=== PATIENT | female | born 1965 | race Caucasian/White ===

== ENCOUNTER 2017-12-07 12:05 | Emergency (ER) | payer SELFPAY ==
[2017-12-07 12:05] VITALS: BP 124/83; PULSE 91; RESP 15; TEMP 37; O2SAT 96; BMI 29.1
--- NOTE | 2017-12-07 12:37 | ED.DCSUM_ITS ---
- ER Visit Summary Date of Service: 12/07/17 Chief Complaint: Swelling to right eyelid. History of Present Illness: The patient is a 52 F 3 of chronic sinus problems and drainage. States since Sunday she has had swelling and discomfort to her right upper eyelid primarily. Did not see any obvious stye. Has had some mild drainage. Denies any trauma. Does not wear contacts. Has never had eye surgery. Does wear reading glasses. She has had symptoms like this before. She denies any obvious allergic reaction like a contact dermatitis or any obvious bee sting or insect bite. She denies any visual change. Physical Examination: Well-appearing middle-age female. Vital signs are stable afebrile. She does not look septic or toxic or in any distress. HEENT exam her right upper eyelid is significantly swollen red mildly tender. On the lateral third there appears you to be an insect sting. There is no stinger. There is no trauma. There is no ecchymosis. There is no stye. Pupils round reactive light. Right eye is injected. Right lower lids minimally swollen. There is no bacterial infection. Pupils round reactive light motions are intact. No foreign bodies or signs of trauma. Neck nontender no lymphadenopathy. Lungs clear to auscultation bilaterally. Heart regular rhythm no murmur. Abdomen is soft and nontender. Moving all 4 extremities. Skin no rashes. Test Results: None Emergency Department Course and Treatment: Right upper eyelid swelling secondary to local allergic reaction. Treatment Plan: Cool compresses, ice, Benadryl for allergic reaction right upper eyelid. Motrin for pain and swelling. She will be placed on amoxicillin 3 times daily for 10 days for possible sinusitis. Disposition: dc Impression: Acute right upper eyelid swelling secondary to local allergic reaction Acute sinusitis This note was generated with [employer] dictation software. It may contain incorrect words, spelling, and punctuation that were not noted in review of the chart prior to signing ED Disposition - Plan for ED Patient: Chief Complaint: Eye Problem Referrals: Ivory Melvin [Primary Care Provider] -
--- NOTE | 2017-12-07 12:37 | ED.DEP ---
ED Disposition - Plan for ED Patient: Disposition: Home or Assisted Living Chief Complaint: Eye Problem Instructions: ED Allergic Reaction Local Other, ED Sinusitis Abx Tx Prescriptions: Amoxicillin 500 mg PO TID #30 tab Referrals: Rupinder Cui,Ivory Ruiz [Primary Care Provider] - Additional Instructions: Cool compresses and ice to her right upper lid to decrease swelling and pain. Motrin to decrease swelling and pain. Also Benadryl for allergic reaction. Amoxicillin for possible sinus infection 3 times a day till gone. Return if getting worse instead of better.
[2017-12-07 12:47] VITALS: BP 118/70; PULSE 86; RESP 14; O2SAT 99
== END 2017-12-07 12:50 | disposition home or self-care (01) ==
PROVIDERS: Emergency Provider Emergency Medicine
DX: J01.90 Acute sinusitis, unspecified (principal); T78.40XA Allergy, unspecified, initial encounter; I10 Essential (primary) hypertension; E11.9 Type 2 diabetes mellitus without complications; I25.10 Atherosclerotic heart disease of native coronary artery without angina pectoris; Z86.73 Personal history of transient ischemic attack (TIA), and cerebral infarction without residual deficits; Z72.0 Tobacco use
CPT/HCPCS: 99283

== ENCOUNTER 2018-05-22 17:16 | Emergency (ER) | payer SELFPAY ==
[2018-05-22 17:17] VITALS: BP 144/91; PULSE 88; RESP 19; TEMP 36.9; O2SAT 98; BMI 26.4
--- NOTE | 2018-05-22 17:22 | RAD_ITS ---
STUDY: X-RAY - LEFT KNEE REASON FOR EXAM: Female, 52 years old. Injured knee yesterday. Anterior pain. Knee buckle posteriorly again today now with pain from the back of the knee into the bladder. TECHNIQUE: 4 view(s) of the knee. COMPARISON: None. FINDINGS: Normal visualized distal femur. Normal visualized proximal tibia and fibula. Normal proximal tibiofibular articulation. There is no acute fracture, dislocation or destructive osseous pathology. There is moderate degenerative arthrosis of the medial femorotibial compartment with moderate joint space narrowing. There is mild degenerative arthrosis of the lateral femorotibial compartment. There is moderate degenerative arthrosis of the patellofemoral articulation. There is no demonstrated joint effusion. The soft tissue structures are unremarkable. RAD/Knee 4 or More Views IMPRESSION: Degenerative arthrosis. Electronically Signed: Dinh Beltran DO at 17:59 EST Tel [phone], Service support ,
--- NOTE | 2018-05-22 18:46 | ED.VISSUMM ---
- ER Visit Summary Date of Service: 05/22/18 Chief Complaint: Left knee injury History of Present Illness: The patient is a 52 F who presents for evaluation of left knee injury. 5 days ago, patient had a small dog jump on the anterior knee, causing sensation of hyperextension of the leg. Patient has had intermittent pain since then, mainly in the medial knee, and has been able to walk. This morning she felt her leg give out underneath her, causing increased severe pain. She has been able to weight-bear but with great pain. She denies any noted actual dissociation of the bones at the knee. She has worsening pain with trying to fully extend the leg. Denies any other complaints. Patient also states she is out of her levothyroxine and asks for refill. Physical Examination: Well-nourished well-developed in no distress. Examination of the lower extremities shows symmetric appearance of the knee. Patient has symmetric leg temperature and color, sensation, motor function, no edema of the left lower extremity. Tenderness to palpation of the medial knee joint. No fullness in the popliteal fossa. Patient is able to lift the leg off the bed but is not completely in full extension. Intact patellar tendon and quadriceps tendon, no patellar deformity. Patient able to flex past 90 degrees. No joint effusions appreciated. Negative anterior and posterior drawer sign. Negative varus and valgus stress laxity. Test Results: Clinical Impression(s) from Imaging Studies Knee X-Ray 05/22/18 17:22 IMPRESSION: Degenerative arthrosis. Electronically Signed: Dinh Beltran DO at 17:59 EST Tel [phone], Service support , Emergency Department Course and Treatment: Patient presents for 2 injuries to the left knee within 5 days. Her history and exam is not consistent with a knee dislocation, and her physical exam is most consistent with a knee sprain, possibly the MCL or cruciate ligaments. She has no findings concerning for neurovascular compromise. X-ray showed no fracture or effusion. Patient was placed in a knee immobilizer and given crutches. Referral to orthopedics. Patient's use [id number] pain medication as needed. Patient given refill of her levothyroxine. Discharged home. Treatment Plan: [] Disposition: [] Impression: Left knee sprain, medication refill This note was generated with Dragon dictation software. It may contain incorrect words, spelling, and punctuation that were not noted in review of the chart prior to signing ED Disposition - Plan for ED Patient: Disposition: Home or Assisted Living Chief Complaint: Lower Extremity Injury Instructions: ED Sprain Knee Prescriptions: RX: Levothyroxine [Synthroid] 100 mcg PO DAILY 30 Days #30 tab Referrals: Momo Bullard DO [STAFF PHYSICIAN] - 1 Week Evelia Davis NP-C [Primary Care Provider] - Keep Conrad appointment Additional Instructions: Wear the knee immobilizer for support and comfort. You may take it off at night. Take it off several times a day and gently bend and extend your knee to keep the joint moving. Weight-bear as tolerated. Use crutches for support. Use [id number] pain medication as needed for pain. Ice the knee several times a day and keep it elevated as much as possible. If you have any worsening of your condition or any new concerning symptoms, please return immediately to the emergency department for another evaluation.
--- NOTE | 2018-05-22 18:49 | ED.DCSUM_ITS ---
- ER Visit Summary Date of Service: 05/22/18 Chief Complaint: Left knee injury History of Present Illness: The patient is a 52 F who presents for evaluation of left knee injury. 5 days ago, patient had a small dog jump on the anterior knee, causing sensation of hyperextension of the leg. Patient has had i ntermittent pain since then, mainly in the medial knee, and has been able to walk. This morning she felt her leg give out underneath her, causing increased severe pain. She has been able to weight-bear but with great pain. She denies any noted actual dissociation of the bones at the knee. She has worsening pain with trying to fully extend the leg. Denies any other complaints. Patient also states she is out of her levothyroxine and asks for refill. Physical Examination: Well-nourished well-developed in no distress. Examination of the lower extremities shows symmetric appearance of the knee. Patient has symmetric leg temperature and color, sensation, motor function, no edema of the left lower extremity. Tenderness to palpation of the medial knee joint. No fullness in the popliteal fossa. Patient is able to lift the leg off the bed but is not completely in full extension. Intact patellar tendon and quadriceps tendon, no patellar deformity. Patient able to flex past 90 degrees. No joint effusions appreciated. Negative anterior and posterior drawer sign. Negative varus and valgus stress laxity. Test Results: Clinical Impression(s) from Imaging Studies Knee X-Ray 05/22/18 17:22 IMPRESSION: Degenerative arthrosis. Electronically Signed: Dinh Beltran DO at 17:59 EST Tel [phone], Service support , Emergency Department Course and Treatment: Patient presents for 2 injuries to the left knee within 5 days. Her history and exam is not consistent with a knee dislocation, and her physical exam is most consistent with a knee sprain, possibly the MCL or cruciate ligaments. She has no findings concerning for neurovascular compromise. X-ray showed no fracture or effusion. Patient was placed in a knee immobilizer and given crutches. Referral to orthopedics. Patient's use iykz-zbd-resilxt pain medication as needed. Patient given refill of her levothyroxine. Discharged home. Treatment Plan: [] Disposition: [] Impression: Left knee sprain, medication refill This note was generated with [employer] dictation software. It may contain incorrect words, spelling, and punctuation that were not noted in review of the chart prior to signing ED Disposition - Plan for ED Patient: Disposition: Home or Assisted Living Chief Complaint: Lower Extremity Injury Instructions: ED Sprain Knee Prescriptions: RX: Levothyroxine [Synthroid] 100 mcg PO DAILY 30 Days #30 tab Referrals: Momo Bullard DO [STAFF PHYSICIAN] - 1 Week Evelia Davis NP-C [Primary Care Provider] - Keep Conrad appointment Additional Instructions: Wear the knee immobilizer for support and comfort. You may take it off at night. Take it off several times a day and gently bend and extend your knee to keep the joint moving. Weight-bear as tolerated. Use crutches for support. Use [id number] pain medication as needed for pain. Ice the knee several times a day and keep it elevated as much as possible. If you have any worsening of your condition or any new concerning symptoms, please return immediately to the emergency department for another evaluation.
--- NOTE | 2018-05-22 19:33 | ED.DEP ---
ED Disposition - Plan for ED Patient: Disposition: Home or Assisted Living Chief Complaint: Lower Extremity Injury Instructions: ED Sprain Knee Prescriptions: Levothyroxine [Synthroid] 100 mcg PO DAILY 30 Days #30 tab Referrals: Evelia Davis NP-C [Primary Care Provider] - Keep Conrad appointment Momo Bullard DO [STAFF PHYSICIAN] - 1 Week Additional Instructions: Wear the knee immobilizer for support and comfort. You may take it off at night. Take it off several times a day and gently bend and extend your knee to keep the joint moving. Weight-bear as tolerated. Use crutches for support. Use hvps-vxy-ionrusy pain medication as needed for pain. Ice the knee several times a day and keep it elevated as much as possible. If you have any worsening of your condition or any new concerning symptoms, please return immediately to the emergency department for another evaluation.
[2018-05-22 19:48] VITALS: PULSE 80; RESP 16
== END 2018-05-22 19:49 | disposition home or self-care (01) ==
PROVIDERS: Emergency Provider Emergency Medicine; PCP Nurse Practitioner Family
DX: S83.92XA Sprain of unspecified site of left knee, initial encounter (principal); Z76.0 Encounter for issue of repeat prescription; I25.10 Atherosclerotic heart disease of native coronary artery without angina pectoris; W54.8XXA Other contact with dog, initial encounter; Y93.9 Activity, unspecified; Y92.89 Other specified places as the place of occurrence of the external cause; Y99.9 Unspecified external cause status
CPT/HCPCS: 73564; 99284

== ENCOUNTER 2018-08-18 11:01 | Observation (INO) | payer SELFPAY ==
[2018-08-18] VITALS (13 sets, daily range): BP systolic 110–145; BP diastolic 66–90; PULSE 60–75; RESP 14–20; TEMP 36.4–36.6; O2SAT 94–98; BMI 28.4; BMI 27.4; BMI 27.5
--- NOTE | 2018-08-18 11:09 | EKG12_ITS ---
Test Reason : CP Blood Pressure : / mmHG Vent. Rate : 071 BPM Atrial Rate : 071 BPM P-R Int : 194 ms QRS Dur : 086 ms QT Int : 414 ms P-R-T Axes : 029 074 047 degrees QTc Int : 449 ms Normal sinus rhythm Low voltage QRS Borderline ECG Confirmed by JERRELL DELONG, DANIEL ([id number]), senior technical editor BROWN KIRKLAND ([id number]) on 08/21/2018 1:53:57 PM Referred By: PERICO Confirmed By:DANIEL ALLAN MD
--- NOTE | 2018-08-18 11:10 | ED.VIS.GEN ---
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 nonpleuritic. Relieved by: aspirin Associated Symptoms: sudden weakness. lightheaded/near-syncopal. Narrative: Did not feel diaphoretic or dyspneic. She just felt very generally bad. These are similar symptoms to when she had 2 stents put in her heart around 2.5 years ago. At that time she had discomfort down the right arm instead of the left. She has been compliant with her aspirin and Plavix. She took a baby aspirin this morning and then when this occurred, she took another one. Discomfort seemed to let off after that, but never has gone away. She has taken no other medications. She continues to smoke. She states she is trying to quit and currently smokes half pack per day. - Past Medical History (1) CAD (coronary artery disease), [place] coronary artery Status: Chronic (2) Diabetes Status: Chronic (3) Hypertension Status: Chronic Past Medical History - Allergies and Home Meds Allergies/Adverse Reactions: Allergies codeine Allergy (Verified 08/18/18 11:06) Hives hydromorphone HCl [From Dilaudid] Allergy (Verified 08/18/18 11:06) Chest tightness lisinopril Allergy (Verified 08/18/18 11:06) Other pine trees Allergy (Uncoded 08/18/18 11:06) Unknown Primary Care Physician: Evelia Davis NP-C [NON-STAFF] - Surgical History: - - coronary stent x 2 Lives: Alone Smoking Status: Heavy Smoker (>10/day) Alcohol: None Drugs: None - Family History Sibling Family History: Reports: Heart Disease Review of Systems General: Reports: Malaise. Denies: Chills, Fever, Sweats Eyes: Denies: Visual changes - bilaterally, Diplopia ENT: Denies: Rhinorrhea, Sore throat Cardiovascular: Reports: Chest pain. Denies: Palpitations, Heart racing Respiratory: Denies: Dyspnea, Cough, Dyspnea on exertion Gastrointestinal: Denies: Abdominal pain, Nausea, Vomiting, Diarrhea, Melena, Hematochezia Genitourinary: Denies: Dysuria, Hematuria, Frequency Musculoskeletal: Reports: Extremity Pain - LUE. Denies: Back pain, Swelling Skin: Denies: Rash, Wounds Neurological: Denies: Headache, Weakness, Numbness Hematologic: Reports: Easy bruising, Easy bleeding Physical Exam Vital Signs/Narrative: Vital Signs Temp Pulse Resp BP Pulse Ox 08/18/18 11:02 97.6 F L 73 16 145/90 H 98 Inital Vital Signs reviewed: Yes General: Well nourished, Well developed, No Acute Distress Head: Normocephalic, Atraumatic Eyes: Perrl, EOMI ENT: Moist mucous membranes, No rhinorrhea Neck: Supple, Nontender, No JVD Cardiovascular: Regular rate, Regular rhythm, No murmurs, Normal S1, Normal S2. Negative for: Tachycardia Respiratory: No distress, CTA bilaterally, Chest nontender Abdomen: Soft, Nontender, Nondistended, Normal bowel sounds Back: Nontender, Normal Inspection Extremities: Nontender, No edema. Negative for: Calf Tenderness Skin: Normal color, No rash Neurological: Alert, Oriented x3, Cranial nerves II-XII grossly intact, Normal Strength, Normal Sensation Psychological: Normal affect, Normal Mood Diagnostic/Tx/Re-eval Impressions Chest X-Ray 08/18/18 12:06 IMPRESSION: Mild COPD with mild fibrosis. No acute chest disease. Electronically Signed: Rafat Pope MD at 12:48 EDT , Service support , 08/18/18 12:06 Chest PA and Lateral [RAD] Stat Laboratory Results 08/18/18 08/18/18 08/18/18 11:10 11:10 11:10 WBC 13.2 H RBC 4.89 Hgb 14.9 Hct 43.8 MCV 89.6 MCH 30.5 MCHC 34.0 RDW 13.4 RDW Differential 43.5 Plt Count 176 MPV 11.5 Immature Gran % (Auto) 0.200 Neut % (Auto) 46.7 L Lymph % (Auto) 48.7 H [place] % (Auto) 3.6 Eos % (Auto) 0.5 Baso % (Auto) 0.3 Absolute Neuts (auto) 6.2 Absolute Lymphs (auto) 6.42 H Total Counted Not Reportable Differential Comment SCANNED APTT 29.9 Sodium 137 Potassium 3.7 Chloride 103 Carbon Dioxide 29.0 Anion Gap 5 BUN 6 L Creatinine 0.74 Estim Creat Clear Calc 98.27 Est GFR (MDRD) Af Amer 105 Est GFR (MDRD) Non-Af 87 BUN/Creatinine Ratio 8.1 L Glucose 256 H Calcium 8.8 Troponin I < 0.015 - Rhythm Strip Rhythm Strip: Sinus Rhythm Rate: 70 Ectopy: None - EKG Initial EKG Interpretation: Sinus Rhythm, No Acute Injury Pattern - Medical Decision Making After 1 nitroglycerin her discomfort is almost completely gone. Paste was placed on her chest, and her pressure dropped with the one nitroglycerin even though she did not become hypotensive, she was given IV fluids. On reevaluation she is feeling much better. She has minimal discomfort that is residual. Her enzymes were negative her EKG shows nothing acute, I discussed with cardiology given her prior history of 2 stents and in high risk areas, given her prior heart cath here in the areas that were previously stented, namely her LAD critical lesion in her left circumflex critical lesion, he is comfortable with seeing her today and keeping her here for now. Discussed with hospitalist for telemetry observation admission. ED Disposition - Plan for ED Patient: Disposition: Acute Care Hospital [facility] Diagnosis: Unstable angina Referrals: Evelia Davis NP-C [NON-STAFF] -
--- NOTE | 2018-08-18 11:24 | ED.DCSUM_ITS ---
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 nonpleuritic. Relieved by: aspirin Associated Symptoms: sudden weakness. lightheaded/near-syncopal. Narrative: Did not feel diaphoretic or dyspneic. She just felt very generally bad. These are similar symptoms to when she had 2 stents put in her heart around 2.5 years ago. At that time she had discomfort down the right arm instead of the left. She has been compliant with her aspirin and Plavix. She took a baby aspirin this morning and then when this occurred, she took another one. Discomfort seemed to let off after that, but never has gone away. She has taken no other medications. She continues to smoke. She states she is trying to quit and currently smokes half pack per day. - Past Medical History (1) CAD (coronary artery disease), [place] coronary artery Status: Chronic (2) Diabetes Status: Chronic (3) Hypertension Status: Chronic Past Medical History - Allergies and Home Meds Allergies/Adverse Reactions: Allergies codeine Allergy (Verified 08/18/18 11:06) Hives hydromorphone HCl [From Dilaudid] Allergy (Verified 08/18/18 11:06) Chest tightness lisinopril Allergy (Verified 08/18/18 11:06) Other pine trees Allergy (Uncoded 08/18/18 11:06) Unknown Primary Care Physician: Evelia Davis NP-C [NON-STAFF] - Surgical History: - - coronary stent x 2 Lives: Alone Smoking Status: Heavy Smoker (>10/day) Alcohol: None Drugs: None - Family History Sibling Family History: Reports: Heart Disease Review of Systems General: Reports: Malaise. Denies: Chills, Fever, Sweats Eyes: Denies: Visual changes - bilaterally, Diplopia ENT: Denies: Rhinorrhea, Sore throat Cardiovascular: Reports: Chest pain. Denies: Palpitations, Heart racing Respiratory: Denies: Dyspnea, Cough, Dyspnea on exertion Gastrointestinal: Denies: Abdominal pain, Nausea, Vomiting, Diarrhea, Melena, Hematochezia Genitourinary: Denies: Dysuria, Hematuria, Frequency Musculoskeletal: Reports: Extremity Pain - LUE. Denies: Back pain, Swelling Skin: Denies: Rash, Wounds Neurological: Denies: Headache, Weakness, Numbness Hematologic: Reports: Easy bruising, Easy bleeding Physical Exam Vital Signs/Narrative: Vital Signs Temp Pulse Resp BP Pulse Ox 08/18/18 11:02 97.6 F L 73 16 145/90 H 98 Inital Vital Signs reviewed: Yes General: Well nourished, Well developed, No Acute Distress Head: Normocephalic, Atraumatic Eyes: Perrl, EOMI ENT: Moist mucous membranes, No rhinorrhea Neck: Supple, Nontender, No JVD Cardiovascular: Regular rate, Regular rhythm, No murmurs, Normal S1, Normal S2. Negative for: Tachycardia Respiratory: No distress, CTA bilaterally, Chest nontender Abdomen: Soft, Nontender, Nondistended, Normal bowel sounds Back: Nontender, Normal Inspection Extremities: Nontender, No edema. Negative for: Calf Tenderness Skin: Normal color, No rash Neurological: Alert, Oriented x3, Cranial nerves II-XII grossly intact, Normal Strength, Normal Sensation Psychological: Normal affect, Normal Mood Diagnostic/Tx/Re-eval Impressions Chest X-Ray 08/18/18 12:06 IMPRESSION: Mild COPD with mild fibrosis. No acute chest disease. Electronically Signed: Rafat Pope MD at 12:48 EDT , Service support , 08/18/18 12:06 Chest PA and Lateral [RAD] Stat Laboratory Results 08/18/18 08/18/18 08/18/18 11:10 11:10 11:10 WBC 13.2 H RBC 4.89 Hgb 14.9 Hct 43.8 MCV 89.6 MCH 30.5 MCHC 34.0 RDW 13.4 RDW Differential 43.5 Plt Count 176 MPV 11.5 Immature Gran % (Auto) 0.200 Neut % (Auto) 46.7 L Lymph % (Auto) 48.7 H [place] % (Auto) 3.6 Eos % (Auto) 0.5 Baso % (Auto) 0.3 Absolute Neuts (auto) 6.2 Absolute Lymphs (auto) 6.42 H Total Counted Not Reportable Differential Comment SCANNED APTT 29.9 Sodium 137 Potassium 3.7 Chloride 103 Carbon Dioxide 29.0 Anion Gap 5 BUN 6 L Creatinine 0.74 Estim Creat Clear Calc 98.27 Est GFR (MDRD) Af Amer 105 Est GFR (MDRD) Non-Af 87 BUN/Creatinine Ratio 8.1 L Glucose 256 H Calcium 8.8 Troponin I < 0.015 - Rhythm Strip Rhythm Strip: Sinus Rhythm Rate: 70 Ectopy: None - EKG Initial EKG Interpretation: Sinus Rhythm, No Acute Injury Pattern - Medical Decision Making After 1 nitroglycerin her discomfort is almost completely gone. Paste was placed on her chest, and her pressure dropped with the one nitroglycerin even though she did not become hypotensive, she was given IV fluids. On reevaluation she is feeling much better. She has minimal discomfort that is residual. Her enzymes were negative her EKG shows nothing acute, I discussed with cardiology given her prior history of 2 stents and in high risk areas, given her prior heart cath here in the areas that were previously stented, namely her LAD critical lesion in her left circumflex critical lesion, he is comfortable with seeing her today and keeping her here for now. Discussed with hospitalist for telemetry observation admission. ED Disposition - Plan for ED Patient: Disposition: Acute Care [facility] Diagnosis: Unstable angina Referrals: Evelia Davis NP-C [NON-STAFF] -
[2018-08-18 11:35] LABS: Partial Thromboplast Time 29.9 Seconds (24.1-36.2)
[2018-08-18 11:38] LABS: Absolute Lymphocyte Count 6.42 X10^3/ul (0.83-4.51); Absolute Neutrophil Count 6.2 X10^3/uL (2.0-7.7); Basophil# 0.04 X10^3/uL; Basophil% 0.3 % (0-1); Eosinophil# 0.07 X10^3/uL; Eosinophils% 0.5 % (0-5); Hematocrit 43.8 % (37-47); Hemoglobin 14.9 g/dl (12.0-15.0); Lymphocyte # 6.42 X10^3/ul (4.0); Lymphocyte % 48.7 % (19-41); Mean Corpuscular Hgb 30.5 pg (27.0-32.0); Mean Corpuscular Volume 89.6 fL (81-99); Mean Platelet Vol. 11.5 fl (6.2-12.0); Monocyte# 0.47 X10^3/uL; Monocyte% 3.6 % (0-10); Neutrophil # 6.16 X10^3/uL (2.7-7.7); Neutrophil % 46.7 % (47-70); Platelet Count 176 K/mm3 (150-450); RBC Distribution Width CV 13.4 % (11.6-14.6); RBC Distribution Width SD 43.5 fl (35.1-43.9); Red Blood Count 4.89 M/mm3 (4.2-5.4); White Blood Count 13.2 K/mm3 (4.4-11.0)
[2018-08-18 11:45] LABS: Anion Gap 5 (5-15); BUN 6 mg/dL (7-18); BUN/Creat Ratio 8.1 RATIO (10-20); Calcium,Total 8.8 mg/dL (8.5-10.1); Chloride 103 mmol/L (98-107); Creatinine, Serum 0.74 mg/dL (0.55-1.02); EST Glomerular Filtration Rate 87 mL/min (>60); Est Glom Filt Rate - Afr Amer 105 mL/min (>60); Estimated Creatinine Clearance 98.27 ml/min; Glucose 256 mg/dL (74-106); Potassium 3.7 mmol/L (3.5-5.1); Sodium Level 137 mmol/L (136-145)
[2018-08-18] MEDS: Nitroglycerin Oint 1 INCH PACKET 0.5 INCH TRANSDERM. (11:45)
[2018-08-18 11:47] LABS: Differential Indicated SCAN CRITERIA MET; POSITIVE COUNT NO; POSITIVE DIFFERENTIAL YES; POSITIVE MORPHOLOGY NO
[2018-08-18 11:50] LABS: Differential Comment SCANNED
--- NOTE | 2018-08-18 12:06 | RAD_ITS ---
STUDY: X-RAY CHEST REASON FOR EXAM: Female, 53 years old. Chest pain. Heart disease. TECHNIQUE: Frontal and lateral views of the chest. COMPARISON: 01/02/2016. FINDINGS: The lungs are hyperexpanded. There are coarsened interstitial markings suggestive of mild chronic fibrosis. No gross focal infiltrates. No gross effusions. Normal size heart. Normal mediastinum and regis. Normal visualized pulmonary arteries. Normal visualized aortic arch and descending thoracic aorta. Normal visualized thoracic spine. Normal visualized ribs, clavicles, and shoulders. There is no demonstrated abnormality of the visualized soft tissue structures of the upper abdomen. RAD/Chest PA and Lateral IMPRESSION: Mild COPD with mild fibrosis. No acute chest disease. Electronically Signed: Rafat Pope MD at 12:48 EDT , Service support ,
[2018-08-18] MEDS: Enoxaparin 100 MG/ML Syringe 90 MG SC (14:19)
--- NOTE | 2018-08-18 14:40 | PCM.CONS.C ---
Reason for Consult Date of Consultation: 08/18/18 Reason for Consultation: Chest pain History of Present Illness: The patient is a 53 year old F with a previous medical history significant for hypertension, diabetes mellitus, hyperlipidemia and coronary artery disease status post cardiac catheterization in 2016 resulting in angioplasty to the left anterior descending artery and the left circumflex artery at [facility]. She also has a strong family history who presented to the Emergency Room with chest discomfort. She says that this was a heaviness in her chest radiating to both arms. It occurred while she was doing some light housework. She says that it was reminiscent of the chest discomfort she had in 2016. She presented to the emergency room was evaluated given sublingual nitroglycerin with immediate relief of the discomfort. Her EKG did not demonstrate any significant changes and cardiac troponin enzymes are thus far normal. She has unfortunately continued to use tobacco products but she has been compliant with her medications and has apparently been following up at [place] for reasons that are not entirely clear. She has had no dizziness or diaphoresis no near syncope or syncope. Past Medical History Allergies/Adverse Reactions: Allergies codeine Allergy (Verified 08/18/18 11:06) Hives hydromorphone HCl [From Dilaudid] Allergy (Verified 08/18/18 11:06) Chest tightness lisinopril Allergy (Verified 08/18/18 11:06) Other pine trees Allergy (Uncoded 08/18/18 11:06) Unknown Home Medications: Ambulatory Orders Medication Instructions Recorded Hydrochlorothiazide 25 mg PO DAILY 02/28/13 Metformin(XR) [Glucophage Xr] 1,000 mg PO DAILY 02/28/13 Levothyroxine [Synthroid] 400 mcg PO QODAY 01/02/16 Metformin(XR) [Glucophage Xr] 500 mg PO QHS 01/02/16 Metoprolol Tartrate [Lopressor 25 mg PO BID 01/05/16 (beta james)] Aspirin [Aspirin EC] 81 mg PO DAILY 05/22/18 Clopidogrel Bisulfate [Plavix] 75 mg PO DAILY 05/22/18 Atorvastatin Calcium 80 mg PO QHS 08/18/18 Past Medical History (Chronic Problems): Chronic Problems CAD (coronary artery disease), [place] coronary artery (Chronic) Smoking (Chronic) Obesity (Chronic) Hypertension (Chronic) Diabetes (Chronic) Surgical History: - - coronary stent x 2 - *Family History Sibling History Items: Heart Disease Lives: Alone Smoking Status: Heavy Smoker (>10/day) Alcohol: None Drugs: None Review of Systems - Review of Systems General: Denies: Fever, Night Sweats, Fatigue HEENT: Denies: Vision Change Cardiovascular: Reports: Chest Discomfort, Chest Discomfort with Exertion. Denies: Shortness of Breath, Orthopnea, PND, Peripheral Edema, Palpitations, Lightheadedness, Dizziness, Near Syncope, Syncope Respiratory: Denies: Cough, Sputum Production, Hemoptysis Gastrointestinal: Denies: Hematemesis, Hematochezia, Melena Genitourinary: Denies: Dysuria, Hematuria Muscoloskeletal: Denies: Myalgias Skin: Denies: Rash Neurological: Denies: Dizziness Psychiatric: Denies: Anxiety Endocrine: Denies: Unexplained Weight Loss Hematologic/ Lymphatic: Denies: Anemia Subjectve: Pleasant lady in no distress at this time Objective: Vital Signs Temp Pulse Resp BP Pulse Ox 97.6 F L 66 14 126/87 H 96 08/18/18 11:02 08/18/18 14:00 08/18/18 14:00 08/18/18 14:00 08/18/18 14:00 Oxygen Flow Rate (L/min) 2 Oxygen Delivery Method Room Air Weight: 203 lb 14.841 oz Body Mass Index (BMI) 28.4 General: Awake, Alert, Oriented x 3 HEENT: PERRL, EOMI, Sclera Non Icteric Neck: Supple, Good ROM, No Lymph Node Enlargement Lungs: Clear to auscultation Cardiovascular: Regular Rhythm, Normal S1, Normal S2, No Murmurs, No Rubs, No Gallops Vascular: No Carotid Bruits, Normal Femoral Pulses, Normal Radial Pulses, Normal Dorsalis Pedal Pulse, Normal Posterior Tibial Pulses Abdomen: Bowel Sounds Present, Soft, Non Tender, No HSM, No Organomegaly Extremities: No Cyanosis, No Clubbing, No edema Musculoskeletal: No Erythema Skin: No Rashes Lymphatic: No Lymph Node Enlargement Neurological: No Focal Motor or Sensory Deficit Psych/Mental Status: Appropriate 08/18/18 11:10: WBC 13.2 H, RBC 4.89, Hgb 14.9, Hct 43.8, MCV 89.6, MCH 30.5, MCHC 34.0, RDW 13.4, RDW Differential 43.5, Plt Count 176, MPV 11.5, Immature Gran % (Auto) 0.200, Neut % (Auto) 46.7 L, Lymph % (Auto) 48.7 H, [place] % (Auto) 3.6, Eos % (Auto) 0.5, Baso % (Auto) 0.3, Absolute Neuts (auto) 6.2, Total Counted Not Reportable 08/18/18 11:10: Sodium 137, Potassium 3.7, Chloride 103, Carbon Dioxide 29.0, Anion Gap 5, BUN 6 L, Creatinine 0.74, Est GFR (MDRD) Af Amer 105, Est GFR (MDRD) Non-Af 87, BUN/Creatinine Ratio 8.1 L, Glucose 256 H, Calcium 8.8, Troponin I < 0.015 08/18/18 11:10: APTT 29.9 Rhythm: EKG: Normal sinus rhythm with no acute changes Assessment/Plan 1. Chest discomfort-new onset angina Patient has known history of coronary artery disease and presents with new onset chest discomfort. She did undergo 2 vessel angioplasty 2 years ago. She has unfortunately continues to use tobacco products. With her chest discomfort reminiscent of the previous I would recommend that we forego stress testing and perform a cardiac catheterization. The risk benefits and alternatives have been explained to her she understands and agrees to proceed. Depending on the findings further recommendations will be made. 2. Hypertension Blood pressure appears to be under good control on the current medical therapy this will be continued. 3. Hyper lipidemia with xanthelasma Continue aggressive risk factor modification with statins and reduction of tobacco use. Thank you for allowing me to participate in the care of your patient. Please don't hesitate to call if any issues arise
--- NOTE | 2018-08-18 14:45 | CON.PCM_ITS ---
Reason for Consult Date of Consultation: 08/18/18 Reason for Consultation: Chest pain History of Present Illness: The patient is a 53 year old F with a previous medical history significant for hypertension, diabetes mellitus, hyperlipidemia and coronary artery disease status post cardiac catheterization in 2016 resulting in angioplasty to the left anterior descending artery and the left circumflex artery at [facility]. She also has a strong family history who presented to the Emergency Room with chest discomfort. She says that this was a heaviness in her chest radiating to both arms. It occurred while she was doing some light housework. She says that it was reminiscent of the chest discomfort she had in 2016. She presented to the emergency room was evaluated given sublingual nitroglycerin with immediate relief of the discomfort. Her EKG did not dem onstrate any significant changes and cardiac troponin enzymes are thus far normal. She has unfortunately continued to use tobacco products but she has been compliant with her medications and has apparently been following up at [place] for reasons that are not entirely clear. She has had no dizziness or diaphoresis no near syncope or syncope. Past Medical History Allergies/Adverse Reactions: Allergies codeine Allergy (Verified 08/18/18 11:06) Hives hydromorphone HCl [From Dilaudid] Allergy (Verified 08/18/18 11:06) Chest tightness lisinopril Allergy (Verified 08/18/18 11:06) Other pine trees Allergy (Uncoded 08/18/18 11:06) Unknown Home Medications: Ambulatory Orders Medication Instructions Recorded Hydrochlorothiazide 25 mg PO DAILY 02/28/13 Metformin(XR) [Glucophage Xr] 1,000 mg PO DAILY 02/28/13 Levothyroxine [Synthroid] 400 mcg PO QODAY 01/02/16 Metformin(XR) [Glucophage Xr] 500 mg PO QHS 01/02/16 Metoprolol Tartrate [Lopressor 25 mg PO BID 01/05/16 (beta james)] Aspirin [Aspirin EC] 81 mg PO DAILY 05/22/18 Clopidogrel Bisulfate [Plavix] 75 mg PO DAILY 05/22/18 Atorvastatin Calcium 80 mg PO QHS 08/18/18 Past Medical History (Chronic Problems): Chronic Problems CAD (coronary artery disease), [place] coronary artery (Chronic) Smoking (Chronic) Obesity (Chronic) Hypertension (Chronic) Diabetes (Chronic) Surgical History: - - coronary stent x 2 - *Family History Sibling History Items: Heart Disease Lives: Alone Smoking Status: Heavy Smoker (>10/day) Alcohol: None Drugs: None Review of Systems - Review of Systems General: Denies: Fever, Night Sweats, Fatigue HEENT: Denies: Vision Change Cardiovascular: Reports: Chest Discomfort, Chest Discomfort with Exertion. Denies: Shortness of Breath, Orthopnea, PND, Peripheral Edema, Palpitations, Lightheadedness, Dizziness, Near Syncope, Syncope Respiratory: Denies: Cough, Sputum Production, Hemoptysis Gastrointestinal: Denies: Hematemesis, Hematochezia, Melena Genitourinary: Denies: Dysuria, Hematuria Muscoloskeletal: Denies: Myalgias Skin: Denies: Rash Neurological: Denies: Dizziness Psychiatric: Denies: Anxiety Endocrine: Denies: Unexplained Weight Loss Hematologic/ Lymphatic: Denies: Anemia Subjectve: Pleasant lady in no distress at this time Objective: Vital Signs Temp Pulse Resp BP Pulse Ox 97.6 F L 66 14 126/87 H 96 08/18/18 11:02 08/18/18 14:00 08/18/18 14:00 08/18/18 14:00 08/18/18 14:00 Oxygen Flow Rate (L/min) 2 Oxygen Delivery Method Room Air Weight: 203 lb 14.841 oz Body Mass Index (BMI) 28.4 General: Awake, Alert, Oriented x 3 HEENT: PERRL, EOMI, Sclera Non Icteric Neck: Supple, Good ROM, No Lymph Node Enlargement Lungs: Clear to auscultation Cardiovascular: Regular Rhythm, Normal S1, Normal S2, No Murmurs, No Rubs, No Gallops Vascular: No Carotid Bruits, Normal Femoral Pulses, Normal Radial Pulses, Normal Dorsalis Pedal Pulse, Normal Posterior Tibial Pulses Abdomen: Bowel Sounds Present, Soft, Non Tender, No HSM, No Organomegaly Extremities: No Cyanosis, No Clubbing, No edema Musculoskeletal: No Erythema Skin: No Rashes Lymphatic: No Lymph Node Enlargement Neurological: No Focal Motor or Sensory Deficit Psych/Mental Status: Appropriate 08/18/18 11:10: WBC 13.2 H, RBC 4.89, Hgb 14.9, Hct 43.8, MCV 89.6, MCH 30.5, MCHC 34.0, RDW 13.4, RDW Differential 43.5, Plt Count 176, MPV 11.5, Immature Gran % (Auto) 0.200, Neut % (Auto) 46.7 L, Lymph % (Auto) 48.7 H, [place] % (Auto) 3.6, Eos % (Auto) 0.5, Baso % (Auto) 0.3, Absolute Neuts (auto) 6.2, Total Cou nted Not Reportable 08/18/18 11:10: Sodium 137, Potassium 3.7, Chloride 103, Carbon Dioxide 29.0, Anion Gap 5, BUN 6 L, Creatinine 0.74, Est GFR (MDRD) Af Amer 105, Est GFR (MDRD) Non-Af 87, BUN/Creatinine Ratio 8.1 L, Glucose 256 H, Calcium 8.8, Troponin I < 0.015 08/18/18 11:10: APTT 29.9 Rhythm: EKG: Normal sinus rhythm with no acute changes Assessment/Plan 1. Chest discomfort-new onset angina * Patient has known history of coronary artery disease and presents with new onset chest discomfort. She did undergo 2 vessel angioplasty 2 years ago. She has unfortunately continues to use tobacco products. With her chest discomfort reminiscent of the previous I would recommend that we forego stress testing and perform a cardiac catheterization. The risk benefits and alternatives have been explained to her she understands and agrees to proceed. Depending on the findings further recommendations will be made. 2. Hypertension * Blood pressure appears to be under good control on the current medical therapy this will be continued. * 3. Hyper lipidemia with xanthelasma * Continue aggressive risk factor modification with statins and reduction of tobacco use. * * Thank you for allowing me to participate in the care of your patient. Please don't hesitate to call if any issues arise
--- NOTE | 2018-08-18 15:05 | HP.PCM_ITS ---
Problem List (1) Hypothyroidism Status: Chronic (2) CAD (coronary artery disease), [place] coronary artery Status: Chronic (3) Unstable angina Status: Acute (4) Smoking Status: Chronic (5) Obesity Status: Chronic (6) Hypertension Status: Chronic (7) Diabetes Status: Chronic Qualifiers: Diabetes mellitus type: type 2 Diabetes mellitus complication status: with unspecified complications History of Present Illness Date of Admission: 08/18/18 Chief Complaint: Chest pain The patient is a 53 year old F with PMH as below who presents with onset of substernal pressure and a left arm sensation of insects crawling up and down her arm. 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 She states that this does not feel similar to her previous episode of needing a stent in 2016, though she states at that time she did not have any chest pain just the sensation of something craw ling up and down her arm. She denies any syncope, lightheadedness, or blurry vision. In the ER her EKG was unremarkable, and her initial troponin was negative. Unfortunately she does have a significant coronary artery disease history with 2 stents that were done in [place]. In the ER nitroglycerin was provided which did relieve her pain, and she states that she does not have pain at rest, but any sort of exertion brings on the chest pressure. Past Medical History Past Medical History (Chronic Problems): Chronic Problems CAD (coronary artery disease), [place] coronary artery (Chronic) Hypothyroidism (Chronic) Smoking (Chronic) Obesity (Chronic) Hypertension (Chronic) Diabetes (Chronic) Allergies codeine Allergy (Verified 08/18/18 11:06) Hives hydromorphone HCl [From Dilaudid] Allergy (Verified 08/18/18 11:06) Chest tightness lisinopril Allergy (Verified 08/18/18 11:06) Other pine trees Allergy (Uncoded 08/18/18 11:06) Unknown Home Medications: Ambulatory Orders Medication Instructions Recorded Hydrochlorothiazide 25 mg PO DAILY 02/28/13 Metformin(XR) [Glucophage Xr] 1,000 mg PO DAILY 02/28/13 Levothyroxine [Synthroid] 400 mcg PO QODAY 01/02/16 Metformin(XR) [Glucophage Xr] 500 mg PO QHS 01/02/16 Metoprolol Tartrate [Lopressor 25 mg PO BID 01/05/16 (beta james)] Aspirin [Aspirin EC] 81 mg PO DAILY 05/22/18 Clopidogrel Bisulfate [Plavix] 75 mg PO DAILY 05/22/18 Atorvastatin Calcium 80 mg PO QHS 08/18/18 Surgical History: - - coronary stent x 2 Lives: Alone Smoking Status: Heavy Smoker (>10/day) Tobacco Use: Cigarettes Alcohol: None Drugs: None - *Family History Sibling History Items: Heart Disease Paternal History Items: Heart Disease Review of Systems Constitutional: Denies: Chills, Fever, Weight Change HEENT: Denies: Head Aches, Sinus Congestion, Sinus Drainage Cardiovascular: Reports: Chest Pressure, Heaviness. Denies: Chest Pain, Palpitations Respiratory: Denies: Cough, Shortness of breath at rest, Sputum production Gastrointestinal: Denies: Abdominal Pain, Nausea, Vomiting Genitourinary: Denies: Dysuria Musculoskeletal: Denies: Joint Pain, Joint Tenderness Skin: Denies: Rash, Wounds Neurological: Denies: Numbness, Tingling, Focal weakness Psychiatric: Denies: Anxiety, Depression Hematologic/ Lymphatic: Denies: Easy Bruising, Easy Bleeding VTE Information - Inpt Only VTE Present on Admission: No Patient Problems: Active and Suspected Problems Unstable angina (Acute) - Physical Exam General: Alert, Oriented x3, Cooperative, No apparent distress HEENT: Atraumatic, PERRLA, EOMI, Normocephalic Oral: Moist Mucosa Neck: Supple, No JVD, Trachea Midline Lungs: Clear to auscultation, Normal air movement, No rhonchi, No wheeze, No rales Cardiovascular: Regular rate, Regular Rhythm, Normal S1, Normal S2, No murmurs Abdomen: Soft, Non Tender, Non-Distended, No Hepato-splenomegaly Extremities: No edema, Capillary Refill Less than 3 Seconds Skin: No rashes, No breakdown Neurological: Neuro grossly intact, Sensory exam intact to light touch and pain Psych/Mental Status: Normal Affect, Appropriate Vital Signs Temp Pulse Resp BP Pulse Ox 97.6 F L 66 14 126/87 H 96 08/18/18 11:02 08/18/18 14:00 08/18/18 14:00 08/18/18 14:00 08/18/18 14:00 Oxygen Flow Rate (L/min) 2 Oxygen Delivery Method Room Air Weight: 203 lb 14.841 oz Body Mass Index (BMI) 28.4 Laboratory Tests Past 24 Hrs 08/18/18 08/18/18 08/18/18 11:10 11:10 11:10 WBC 13.2 H RBC 4.89 Hgb 14.9 Hct 43.8 MCV 89.6 MCH 30.5 MCHC 34.0 RDW 13.4 RDW Differential 43.5 Plt Count 176 MPV 11.5 Immature Gran % (Auto) 0.200 Neut % (Auto) 46.7 L Lymph % (Auto) 48.7 H [place] % (Auto) 3.6 Eos % (Auto) 0.5 Baso % (Auto) 0.3 Absolute Neuts (auto) 6.2 Absolute Lymphs (auto) 6.42 H Total Counted Not Reportable Differential Comment SCANNED APTT 29.9 Sodium 137 Potassium 3.7 Chloride 103 Carbon Dioxide 29.0 Anion Gap 5 BUN 6 L Creatinine 0.74 Estim Creat Clear Calc 98.27 Est GFR (MDRD) Af Amer 105 Est GFR (MDRD) Non-Af 87 BUN/Creatinine Ratio 8.1 L Glucose 256 H Calcium 8.8 Troponin I < 0.015 Assessment/Plan All Active Problems Unstable angina (Acute) Chest pain (Acute) Pneumonia (Acute) 1. CAD status post stent x2 now with unstable angina/HTN/HLD/morbid obesity/tobacco abuse -We will give a dose of therapeutic Lovenox today in anticipation for cardiac cath in the morning -Consult to cardiology -Trend troponins -After glycerin available for symptomatic pain relief -She is already on aspirin and Plavix and took both this morning therefore it will not need to load with Plavix -We will continue with her metoprolol, HCTZ and Lipitor -Had an extensive discussion about tobacco cessation 2. DM 2 -Blood glucose is 256, and there is no A1c in our chart -We will hold metformin and start on sliding scale insulin 3. Hypothyroidism -This is secondary to thyroid ablation for hyperthyroidism -Continue with her home Synthroid dose DVT: SCDs, she received therapeutic Lovenox this afternoon Code Visit OBSV E&M: [id number] Initial observation care L3
[2018-08-18 16:50] LABS: Bedside Glucose 195 mg/dL (70-110)
[2018-08-18] MEDS: Insulin Lispro 100 UNIT/ML INSULN.PEN SQ ×2 (18:01→21:24)
[2018-08-18 21:21] LABS: Bacteria 0 SEEN /hpf (None Seen); Mucous, Urine 0 SEEN /hpf (<or=2+); Red Blood Cells-Urine 0 SEEN /hpf (0-5); White Blood Cells 0 SEEN /hpf (0-5)
[2018-08-18] MEDS: 0.9% NaCl Peripheral Flush Adult/Peds IV (21:24)
[2018-08-18] MEDS: Metoprolol Tartrate 25 MG Tablet PO (21:24)
[2018-08-18 21:30] LABS: Color, Urine Yellow (Yellow); Glucose, Dipstick Normal (Normal); Ketone-Dipstick Negative (Negative); Leukocyte Esterase-Dipstick Negative /ul (Negative); Nitrite-Dipstick Negative (Negative); Occult Blood-Urine Negative /ul (Negative); Protein-Dipstick Negative (Negative); Urine Bilirubin Dipstick Negative (Negative); Urine Clarity Clear (Clear); Urine Urobilinogen 1 mg/dl (Normal)
[2018-08-18 21:37] LABS: Squamous Epithelial Cells - UA 0-5 SEEN /hpf (5-10)
[2018-08-18 22:41] LABS: Bedside Glucose 219 mg/dL (70-110)
[2018-08-18 23:52] LABS: Internal QC Validated? YES +Cl - CLEAR BKGD; Pregnancy, Urine Negative Negative
[2018-08-19] VITALS (14 sets, daily range): BP systolic 112–125; BP diastolic 60–79; PULSE 56–69; RESP 16–18; TEMP 36.5–36.6; O2SAT 94
--- NOTE | 2018-08-19 05:00 | EKG12_ITS ---
Test Reason : AM EKG Blood Pressure : / mmHG Vent. Rate : 060 BPM Atrial Rate : 060 BPM P-R Int : 204 ms QRS Dur : 086 ms QT Int : 440 ms P-R-T Axes : 016 069 062 degrees QTc Int : 440 ms Normal sinus rhythm Normal ECG When compared with ECG of 18-AUG-2018 11:14, MANUAL COMPARISON REQUIRED, DATA IS UNCONFIRMED Confirmed by BISI DELONG, KAMI ([id number]), photograph editor BROWN KIRKLAND ([id number]) on 08/20/2018 1:07:33 PM Referred By: DR LICEA Confirmed By:KAMI MATHEWS MD
[2018-08-19 06:01] LABS: Absolute Lymphocyte Count 6.38 X10^3/ul (0.83-4.51); Absolute Neutrophil Count 4.1 X10^3/uL (2.0-7.7); Basophil# 0.04 X10^3/uL; Basophil% 0.4 % (0-1); Eosinophil# 0.12 X10^3/uL; Eosinophils% 1.1 % (0-5); Hematocrit 41.1 % (37-47); Hemoglobin 13.7 g/dl (12.0-15.0); Lymphocyte # 6.38 X10^3/ul (4.0); Lymphocyte % 57.1 % (19-41); Mean Corp Hgb Conc 33.3 g/gl (32-36); Mean Corpuscular Hgb 30.2 pg (27.0-32.0); Mean Corpuscular Volume 90.7 fL (81-99); Mean Platelet Vol. 11.6 fl (6.2-12.0); Monocyte# 0.49 X10^3/uL; Monocyte% 4.4 % (0-10); Neutrophil # 4.12 X10^3/uL (2.7-7.7); Neutrophil % 36.7 % (47-70); Platelet Count 141 K/mm3 (150-450); RBC Distribution Width CV 13.3 % (11.6-14.6); RBC Distribution Width SD 43.8 fl (35.1-43.9); Red Blood Count 4.53 M/mm3 (4.2-5.4); White Blood Count 11.2 K/mm3 (4.4-11.0)
[2018-08-19 06:03] LABS: Prothrombin Time (Protime)PT. 13.1 SECONDS (11.7-14.9)
[2018-08-19 06:04] LABS: Partial Thromboplast Time 30.9 Seconds (24.1-36.2)
[2018-08-19 06:19] LABS: POSITIVE COUNT NO; POSITIVE MORPHOLOGY NO
[2018-08-19 06:21] LABS: Differential Indicated SCAN CRITERIA MET; POSITIVE DIFFERENTIAL YES
[2018-08-19 06:27] LABS: Anion Gap 7 (5-15); BUN 9 mg/dL (7-18); BUN/Creat Ratio 12.9 RATIO (10-20); Calcium,Total 8.7 mg/dL (8.5-10.1); Chloride 106 mmol/L (98-107); EST Glomerular Filtration Rate 94 mL/min (>60); Est Glom Filt Rate - Afr Amer 113 mL/min (>60); Estimated Creatinine Clearance 103.88 ml/min; Glucose 204 mg/dL (74-106); Potassium 3.6 mmol/L (3.5-5.1); Sodium Level 140 mmol/L (136-145); Thyroid Stim Hormone (TSH) 1.26 uIU/mL (0.358-3.74)
[2018-08-19] MEDS: Clopidogrel Bisulfate 75 MG Tablet PO (06:34)
[2018-08-19] MEDS: Metoprolol Tartrate 25 MG Tablet PO (06:34)
[2018-08-19] MEDS: 0.9% Normal Saline 1,000 ML 15 ML IV (06:35)
[2018-08-19] MEDS: Levothyroxine 100 MCG Tablet 400 MCG PO (06:35)
[2018-08-19] MEDS: Aspirin E.C. 81 MG Tablet PO (06:35)
[2018-08-19] MEDS: 0.9% NaCl Peripheral Flush Adult/Peds IV (06:36)
[2018-08-19 06:51] LABS: Bedside Glucose 201 mg/dL (70-110)
[2018-08-19 06:57] LABS: Differential Comment SCANNED
[2018-08-19 06:58] LABS: Reactive Lymphocyte 2+
[2018-08-19 07:50] LABS: Hemoglobin A1c 8.6 % (4.2-6.3)
--- NOTE | 2018-08-19 09:02 | PCM.PN.CARD ---
Subjectve: Patient seen and evaluated. Appears to be stable. Objective: Vital Signs Temp Pulse Resp BP Pulse Ox 97.8 F 69 18 112/60 94 08/19/18 06:27 08/19/18 07:18 08/19/18 06:27 08/19/18 06:27 08/19/18 06:27 Oxygen Flow Rate (L/min) 2 Oxygen Delivery Method Room Air Weight: 196 lb 13.965 oz Body Mass Index (BMI) 27.4 Intake and Output for Last 24 Hours 08/17/18 08/18/18 08/19/18 23:59 23:59 23:59 Intake Total 220 / 220 200 / 200 Balance 220 / 220 200 / 200 General: Awake, Alert, Oriented x 3 HEENT: PERRL, EOMI, Sclera Non Icteric Neck: Supple, Good ROM, No Lymph Node Enlargement Lungs: Clear to auscultation Cardiovascular: Regular Rhythm, Normal S1, Normal S2, No Murmurs, No Rubs, No Gallops Vascular: No Carotid Bruits, Normal Femoral Pulses, Normal Radial Pulses, Normal Dorsalis Pedal Pulse, Normal Posterior Tibial Pulses Abdomen: Bowel Sounds Present, Soft, Non Tender, No HSM, No Organomegaly Extremities: No Cyanosis, No Clubbing, No edema Musculoskeletal: No Erythema Skin: No Rashes Lymphatic: No Lymph Node Enlargement Neurological: No Focal Motor or Sensory Deficit Psych/Mental Status: Appropriate 08/18/18 11:10: WBC 13.2 H, RBC 4.89, Hgb 14.9, Hct 43.8, MCV 89.6, MCH 30.5, MCHC 34.0, RDW 13.4, RDW Differential 43.5, Plt Count 176, MPV 11.5, Immature Gran % (Auto) 0.200, Neut % (Auto) 46.7 L, Lymph % (Auto) 48.7 H, [place] % (Auto) 3.6, Eos % (Auto) 0.5, Baso % (Auto) 0.3, Absolute Neuts (auto) 6.2, Total Counted Not Reportable 08/18/18 11:10: Sodium 137, Potassium 3.7, Chloride 103, Carbon Dioxide 29.0, Anion Gap 5, BUN 6 L, Creatinine 0.74, Est GFR (MDRD) Af Amer 105, Est GFR (MDRD) Non-Af 87, BUN/Creatinine Ratio 8.1 L, Glucose 256 H, Calcium 8.8, Troponin I < 0.015 08/18/18 11:10: APTT 29.9 08/18/18 13:10: Troponin I < 0.015 08/18/18 16:55: Troponin I < 0.015 08/18/18 20:14: Urine Color Yellow, Urine Clarity Clear, Urine pH 7.0, Ur Specific [place] 1.010, Urine Protein Negative, Urine Glucose (UA) Normal, Urine Ketones Negative, Urine Occult Blood Negative, Urine Nitrite Negative, Urine Bilirubin Negative, Urine Urobilinogen 1 H, Ur Leukocyte Esterase Negative, Urine RBC 0 SEEN, Urine WBC 0 SEEN 08/19/18 05:05: WBC 11.2 H, RBC 4.53, Hgb 13.7, Hct 41.1, MCV 90.7, MCH 30.2, MCHC 33.3, RDW 13.3, RDW Differential 43.8, Plt Count 141 L, MPV 11.6, Immature Gran % (Auto) 0.300, Neut % (Auto) 36.7 L, Lymph % (Auto) 57.1 H, [place] % (Auto) 4.4, Eos % (Auto) 1.1, Baso % (Auto) 0.4, Absolute Neuts (auto) 4.1, Total Counted Not Reportable 08/19/18 05:05: Sodium 140, Potassium 3.6, Chloride 106, Carbon Dioxide 27.0, Anion Gap 7, BUN 9, Creatinine 0.70, Est GFR (MDRD) Af Amer 113, Est GFR (MDRD) Non-Af 94, BUN/Creatinine Ratio 12.9, Glucose 204 H, Calcium 8.7 08/19/18 05:05: PT 13.1, INR 1.0, APTT 30.9 08/19/18 05:05: Hemoglobin A1c 8.6 H Rhythm: EKG: ECHO: Stress Test: Cardiac Cath: PCI: CT Surgery: Holter monitor: EPS: PPM: CXR: Chest CT Scan: Medical Necessity - Tobacco Use Smoking Status: Heavy Smoker (>10/day) Tobacco Use: Cigarettes Assessment/Plan 1. Chest discomfort-new onset angina Patient has known history of coronary artery disease and presents with new onset chest discomfort. She did undergo 2 vessel angioplasty 2 years ago. Cardiac catheterization today revealed the following: Normal left main coronary artery Left anterior descending artery previously stented appears to be patent with moderate disease noted in the mid segment and severe disease noted in the distal segment and moderate diffuse disease noted of the diagonal vessels. Nondominant left circumflex artery with patent previously placed stent and moderate disease involving the obtuse marginal branch. Dominant right coronary artery with moderate 50-60% mid stenosis and severe ostial disease noted of the posterior descending artery. Preserved left ventricular ejection fraction Based on the above angiographic findings demonstrating severe diffuse disease would recommend aggressive medical therapy. Patient will be followed up in the office. 2. Hypertension Blood pressure appears to be under good control on the current medical therapy this will be continued. 3. Hyper lipidemia with xanthelasma Continue aggressive risk factor modification with statins and reduction of tobacco use. Patient can be discharged for outpatient follow-up Thank you for allowing me to participate in the care of your patient. Please don't hesitate to call if any issues arise
--- NOTE | 2018-08-19 09:06 | PN.CARD_ITS ---
Subjectve: Patient seen and evaluated. Appears to be stable. Objective: Vital Signs Temp Pulse Resp BP Pulse Ox 97.8 F 69 18 112/60 94 08/19/18 06:27 08/19/18 07:18 08/19/18 06:27 08/19/18 06:27 08/19/18 06:27 Oxygen Flow Rate (L/min) 2 Oxygen Delivery Method Room Air Weight: 196 lb 13.965 oz Body Mass Index (BMI) 27.4 Intake and Output for Last 24 Hours 08/17/18 08/18/18 08/19/18 23:59 23:59 23:59 Intake Total 220 / 220 200 / 200 Balance 220 / 220 200 / 200 General: Awake, Alert, Oriented x 3 HEENT: PERRL, EOMI, Sclera Non Icteric Neck: Supple, Good ROM, No Lymph Node Enlargement Lungs: Clear to auscultation Cardiovascular: Regular Rhythm, Normal S1, Normal S2, No Murmurs, No Rubs, No Gallops Vascular: No Carotid Bruits, Normal Femoral Pulses, Normal Radial Pulses, Normal Dorsalis Pedal Pulse, Normal Posterior Tibial Pulses Abdomen: Bowel Sounds Present, Soft, Non Tender, No HSM, No Organomegaly Extremities: No Cyanosis, No Clubbing, No edema Musculoskeletal: No Erythema Skin: No Rashes Lymphatic: No Lymph Node Enlargement Neurological: No Focal Motor or Sensory Deficit Psych/Mental Status: Appropriate 08/18/18 11:10: WBC 13.2 H, RBC 4.89, Hgb 14.9, Hct 43.8, MCV 89.6, MCH 30.5, MCHC 34.0, RDW 13.4, RDW Differential 43.5, Plt Count 176, MPV 11.5, Immature Gran % (Auto) 0.200, Neut % (Auto) 46.7 L, Lymph % (Auto) 48.7 H, [place] % (Auto) 3.6, Eos % (Auto) 0.5, Baso % (Auto) 0.3, Absolute Neuts (auto) 6.2, Total Counted Not Reportable 08/18/18 11:10: Sodium 137, Potassium 3.7, Chloride 103, Carbon Dioxide 29.0, Anion Gap 5, BUN 6 L, Creatinine 0.74, Est GFR (MDRD) Af Amer 105, Est GFR (MDRD) Non-Af 87, BUN/Creatinine Ratio 8.1 L, Glucose 256 H, Calcium 8.8, Troponin I < 0.015 08/18/18 11:10: APTT 29.9 08/18/18 13:10: Troponin I < 0.015 08/18/18 16:55: Troponin I < 0.015 08/18/18 20:14: Urine Color Yellow, Urine Clarity Clear, Urine pH 7.0, Ur S pecific [place] 1.010, Urine Protein Negative, Urine Glucose (UA) Normal, Urine Ketones Negative, Urine Occult Blood Negative, Urine Nitrite Negative, Urine Bilirubin Negative, Urine Urobilinogen 1 H, Ur Leukocyte Esterase Negative, Urine RBC 0 SEEN, Urine WBC 0 SEEN 08/19/18 05:05: WBC 11.2 H, RBC 4.53, Hgb 13.7, Hct 41.1, MCV 90.7, MCH 30.2, MCHC 33.3, RDW 13.3, RDW Differential 43.8, Plt Count 141 L, MPV 11.6, Immature Gran % (Auto) 0.300, Neut % (Auto) 36.7 L, Lymph % (Auto) 57.1 H, [place] % (Auto) 4.4, Eos % (Auto) 1.1, Baso % (Auto) 0.4, Absolute Neuts (auto) 4.1, Total Counted Not Reportable 08/19/18 05:05: Sodium 140, Potassium 3.6, Chloride 106, Carbon Dioxide 27.0, Anion Gap 7, BUN 9, Creatinine 0.70, Est GFR (MDRD) Af Amer 113, Est GFR (MDRD) Non-Af 94, BUN/Creatinine Ratio 12.9, Glucose 204 H, Calcium 8.7 08/19/18 05:05: PT 13.1, INR 1.0, APTT 30.9 08/19/18 05:05: Hemoglobin A1c 8.6 H Rhythm: EKG: ECHO: Stress Test: Cardiac Cath: PCI: CT Surgery: Holter monitor: EPS: PPM: CXR: Chest CT Scan: Medical Necessity - Tobacco Use Smoking Status: Heavy Smoker (>10/day) Tobacco Use: Cigarettes Assessment/Plan 1. Chest discomfort-new onset angina * Patient has known history of coronary artery disease and presents with new onset chest discomfort. She did undergo 2 vessel angioplasty 2 years ago. * Cardiac catheterization today revealed the following: Normal left main coronary artery Left anterior descending artery previously stented appears to be patent with moderate disease noted in the mid segment and severe disease noted in the distal segment and moderate diffuse disease noted of the diagonal vessels. Nondominant left circumflex artery with patent previously placed stent and moderate disease involving the obtuse marginal branch. Dominant right coronary artery with moderate 50-60% mid stenosis and severe ostial disease noted of the posterior descending artery. Preserved left ventricular ejection fraction Based on the above angiographic findings demonstrating severe diffuse disease w ould recommend aggressive medical therapy. Patient will be followed up in the office. 2. Hypertension * Blood pressure appears to be under good control on the current medical therapy this will be continued. * 3. Hyper lipidemia with xanthelasma * Continue aggressive risk factor modification with statins and reduction of tobacco use. * * Patient can be discharged for outpatient follow-up * * Thank you for allowing me to participate in the care of your patient. Please don't hesitate to call if any issues arise
--- NOTE | 2018-08-19 09:14 | CL.D_ITS ---
Patient Name: EMERITA COOLEY Study Date: 08/19/2018 Performing: Tacho Person MD Ht: 71 inches 180 cm : 1965 Wt: 196.5 lbs 89 kg Age: 53 Gender: female BSA: 2.09 PROCEDURE(S) PERFORMED AZ35-RLH/COR/LV CLINICAL PROFILE AND INDICATIONS Indications: Suspected CAD Heart Failure: None Stress/Imaging Stress/Image Study Performed: No CAD Presentations: Unstable angina. CONCLUSIONS Diffuse disease involving the moderate LAD in the mid segment, severe distal LAD disease, moderate le ft circumflex disease in the obtuse marginal and diffuse disease in the distal right coronary artery. RECOMMENDATIONS Medical therapy DESCRIPTION OF PROCEDURE The patient arrived to the procedure lab. The risks and benefits of the procedure as well as a full d escription of our services here and current unavailability of surgical backup were fully explained to the patient and/or their significant other prior to the catheterization. The Timeout was completed, verifying the correct patient and procedure. The patient's procedural site was prepped and draped in the usual fashion. Local anesthetic was given subcutaneously to right radial region with Lidocaine 2% . Using a modified Seldinger technique, arterial access was obtained via the right radial artery, a 6 Fr sheath was inserted. Left Coronary Artery selective angiography was performed in multiple views u sing a 5 Fr. 4.0 [place] catheter. Right Coronary Artery selective angiography was then performed in mu ltiple views using a 5 Fr. 4.0 [place] catheter. Left Ventriculography was performed in GRIGSBY projection using a 5 Fr. Pigtail catheter. LV to AO pullback pressures were then recorded.The arterial sheath was pulled and a TR Band was applied for hemostasis. 13cc of air applied CORONARY ANGIOGRAPHY DOMINANCE: Right Dominant LEFT HEART ASSESSMENT Left Ventricular Ejection Fraction: by LV Gram 65 % Normal LV wall motion Normal Left Ventricular systolic function LEFT MAIN: Angiographically normal LEFT ANTERIOR DECENDING ARTERY: PROX LAD: Previously placed stent is patent MID LAD: Moderate luminal irregularities up to 50% DISTAL LAD: 90 long % Stenosis CIRCUMFLEX ARTERY: PROX CIRC: Previously placed stent is patent OM 1: Mid - Diffusely diseased up to 70 % RIGHT CORONARY ARTERY: MID RCA: Moderate luminal irregularities up to 50% RT PDA: Ostial - 90 % Stenosis, Mid - Moderate luminal irregularities up to 50% COMPLICATIONS No Complications PROCEDURE MEDICATIONS Versed 1 mg IV Versed 1 mg IV Oxygen: 2 L/min via nasal cannula Heparin diluted in 23cc Heparinized saline. Patient given 10cc IA of this solution. 08/19/2018 08:26: 22 Verapamil 2.5mg, Ntg 100mcgs, 2000 units of Heparin diluted in 23cc Heparinized saline. Patient give n 10cc IA of this solution. 08/19/2018 08:26:22 SUMMARY OF HEMODYNAMIC DATA Time AIR REST ECG 07:49:39 AO 109/72 (89) SA 08:27:29 LV 124/0, 10 08:39:36 LV 127/0, 10 08:39:44 LV 99/6, 15 08:40:49 LV 105/3, 13 08:40:55 LVp 122/4, 15 08:40:59 AOp 123/71 (93) 08:41:04 Signed By Tacho Person MD On 08/19/2018 09:13:54 Tacho Person MD
[2018-08-19] MEDS: Metoprolol(XL)Succ 50 MG Tablet PO (09:34)
[2018-08-19] MEDS: hydroCHLOROthiazide 25 MG Tablet PO (09:35)
[2018-08-19] MEDS: Atorvastatin Calcium 80 MG Tablet PO (09:35)
[2018-08-19] MEDS: Isosorbide Mononitrate 30 MG Tablet PO (09:35)
[2018-08-19] MEDS: Insulin Lispro 100 UNIT/ML INSULN.PEN SQ (09:35)
--- NOTE | 2018-08-19 11:00 | PCM.DC ---
- Discharge Diagnoses Current Active Problems: Current Active and Chronic Problems Unstable angina (Acute) Hypothyroidism (Chronic) You will use the following diet at home:: Cardiac Your food should be the consistency of: Regular Discharge Activity: May Not Drive - for 1-2 day Call your doctor if you observe: Fever of 101 or Higher, Coldness, Increased Pain, Inability to have a bowel movement, Shortness of breath, Dizziness, Fainting spells, Swelling in the ankles, Chest pain, Increased palpitations (irregular heartbeat) Additional Instructions: Hold HCTZ and metformin for 2 days, resume on 08/21/2018; to prevent contrast-induced nephropathy Allergies/Adverse Reactions: Allergies codeine Allergy (Verified 08/18/18 11:06) Hives hydromorphone HCl [From Dilaudid] Allergy (Verified 08/18/18 11:06) Chest tightness lisinopril Allergy (Verified 08/18/18 11:06) Other pine trees Allergy (Uncoded 08/18/18 11:06) Unknown Medications to take at Discharge Hydrochlorothiazide 25 mg PO DAILY 02/28/13 Levothyroxine [Synthroid] 400 mcg PO DAILY 01/02/16 Aspirin [Aspirin EC] 81 mg PO DAILY 05/22/18 Clopidogrel Bisulfate [Plavix] 75 mg PO DAILY 05/22/18 Atorvastatin Calcium 80 mg PO QHS 08/18/18 Isosorbide Mononitrate [Imdur] 30 mg PO DAILY #30 tablet 08/19/18 Metformin(XR) [Glucophage Xr] 1,000 mg PO DAILY #0 08/19/18 Metformin(XR) [Glucophage Xr] 500 mg PO QHS #0 08/19/18 Metoprolol Tartrate [Lopressor (beta james)] 25 mg PO BID #0 08/19/18 Nitroglycerin [Nitrostat] 0.4 mg SUBLINGUAL Q5M PRN #30 tablet 08/19/18 The following prescriptions were given: Isosorbide Mononitrate [Imdur] 30 mg PO DAILY #30 tablet Nitroglycerin [Nitrostat] 0.4 mg SUBLINGUAL Q5M PRN #30 tablet PRN Reason: Cardiac/Chest Pain Primary Care Physician: Evelia Davis, OVEN BUILDER-C [NON-STAFF] - Please follow up with your Primary Care Physician in: in 2 week Test Results: Test results from this visit will be discussed in further detail at your follow-up appointment, if applicable. Please Follow Up With: Tacho Person MD When: in 3-4 weeks
--- NOTE | 2018-08-19 11:16 | DCINST_ITS ---
- Discharge Diagnoses Current Active Problems: Current Active and Chronic Problems Unstable angina (Acute) Hypothyroidism (Chronic) You will use the following diet at home:: Cardiac Your food should be the consistency of: Regular Discharge Activity: May Not Drive - for 1-2 day Call your doctor if you observe: Fever of 101 or Higher, Coldness, Increased Pain, Inability to have a bowel movement, Shortness of breath, Dizziness, Fainting spells, Swelling in the ankles, Chest pain, Increased palpitations (irregular heartbeat) Additional Instructions: Hold HCTZ and metformin for 2 days, resume on 08/21/2018; to prevent contrast-induced nephropathy Allergies/Adverse Reactions: Allergies codeine Allergy (Verified 08/18/18 11:06) Hives hydromorphone HCl [From Dilaudid] Allergy (Verified 08/18/18 11:06) Chest tightness lisinopril Allergy (Verified 08/18/18 11:06) Other pine trees Allergy (Uncoded 08/18/18 11:06) Unknown Medications to take at Discharge Hydrochlorothiazide 25 mg PO DAILY 02/28/13 Levothyroxine [Synthroid] 400 mcg PO DAILY 01/02/16 Aspirin [Aspirin EC] 81 mg PO DAILY 05/22/18 Clopidogrel Bisulfate [Plavix] 75 mg PO DAILY 05/22/18 Atorvastatin Calcium 80 mg PO QHS 08/18/18 Isosorbide Mononitrate [Imdur] 30 mg PO DAILY #30 tablet 08/19/18 Metformin(XR) [Glucophage Xr] 1,000 mg PO DAILY #0 08/19/18 Metformin(XR) [Glucophage Xr] 500 mg PO QHS #0 08/19/18 Metoprolol Tartrate [Lopressor (beta james)] 25 mg PO BID #0 08/19/18 Nitroglycerin [Nitrostat] 0.4 mg SUBLINGUAL Q5M PRN #30 tablet 08/19/18 The following prescriptions were given: Isosorbide Mononitrate [Imdur] 30 mg PO DAILY #30 tablet Nitroglycerin [Nitrostat] 0.4 mg SUBLINGUAL Q5M PRN #30 tablet PRN Reason: Cardiac/Chest Pain Primary Care Physician: Evelia Davis, SPOT WELDER-C [NON-STAFF] - Please follow up with your Primary Care Physician in: in 2 week Test Results: Test results from this visit will be discussed in further detail at your follow- up appointment, if applicable. Please Follow Up With: Tacho Person MD When: in 3-4 weeks
--- NOTE | 2018-08-19 11:17 | DS.PCM_ITS ---
Discharge Date and Diagnosis Date of Admission: 08/18/18 Date of Discharge: 08/19/18 - Primary Discharge Diagnosis Active and Suspected Problems Unstable angina (Acute) - Secondary Discharge Diagnosis Chronic Problems CAD (coronary artery disease), [place] coronary artery (Chronic) Hypothyroidism (Chronic) Smoking (Chronic) Obesity (Chronic) Hypertension (Chronic) Diabetes (Chronic) Hospital Course and Treatment Summary of Care Provided: The patient is a 53 year old F with history of coronary artery disease status post 2 stents was admitted for substernal chest pressure with left arm radiation and paresthesia with concern for unstable angina for about 1 day. Patient had serial troponin enzymes which came out negative. EKG was unremarkable. Business Technology Analyst was consulted. Patient was admitted in PCU. Was decided to take for heart cath. Cardiac cath reported as previous stents in LAD patent with moderate disease in the mid LAD and severe disease noted in the distal segment. Moderate diffuse disease in the diagonal vessels. Nondominant left circumflex artery with patent previously placed stent moderate is involving the obtuse marginal branch. Dominant RCA with moderate 50-60% mid stenosis. Severe ostial disease in posterior descending artery. Based on above angiographic findings, patient did not require any stent but aggressive medical therapy was recommended. Patient is on aspirin, Plavix, metoprolol, and high intensity statin. Imdur 30 mg daily was added L prescription given. Patient was advised to hold metformin and HCTZ for 2 days in order to prevent GAUDENCIO. TSH is normal. Blood sugar is uncontrolled. A1c 8.6. Patient advised to follow with PCP in 1- 2 weeks for optimal glycemic control. Discharge medication reconciliation done. Discharge follow-up instructions completed. Discharge process discussed with the patient and all questions were answered to patient's satisfaction. Patient was given prescription for metoprolol, nitroglycerin sublingual, and isosorbide mononitrate. Follow-up social science analyst Dr. carreon, the social science analyst in 3-4 weeks. [] - Physical Exam General: Alert, Oriented x3, Cooperative HEENT: Atraumatic, PERRLA, EOMI, Normocephalic Neck: Supple, No JVD, Negative Carotid Bruits Lungs: Clear to auscultation, Normal air movement, No rhonchi, No wheeze, No rales Cardiovascular: Regular rate, Regular Rhythm, Normal S1, Normal S2, No murmurs Abdomen: Bowel Sounds Present, Soft, Non Tender, Non-Distended Extremities: No edema, Capillary Refill Less than 3 Seconds Skin: No rashes, No breakdown, - - Right radial artery access site?no hematoma/bruise or bleeding. Musculoskeletal: No Tenderness to Palpation of Joints or Extremities Neurological: Cranial nerves II-XII grossly intact Psych/Mental Status: Normal Affect, Appropriate Vital Signs Temp Pulse Resp BP Pulse Ox 97.7 F L 62 16 122/75 H 94 08/19/18 10:00 08/19/18 11:11 08/19/18 10:30 08/19/18 10:30 08/19/18 10:30 Oxygen Flow Rate (L/min) 2 Oxygen Delivery Method Room Air Weight: 196 lb 13.965 oz Body Mass Index (BMI) 27.4 Intake and Output for Last 24 Hours 08/17/18 08/18/18 08/19/18 23:59 23:59 23:59 Intake Total 220 / 220 200 / 200 Balance 220 / 220 200 / 200 Laboratory Tests Past 24 Hrs 08/18/18 08/18/18 08/18/18 11:10 11:10 11:10 WBC 13.2 H RBC 4.89 Hgb 14.9 Hct 43.8 MCV 89.6 MCH 30.5 MCHC 34.0 RDW 13.4 RDW Differential 43.5 Plt Count 176 MPV 11.5 Immature Gran % (Auto) 0.200 Neut % (Auto) 46.7 L Lymph % (Auto) 48.7 H [place] % (Auto) 3.6 Eos % (Auto) 0.5 Baso % (Auto) 0.3 Absolute Neuts (auto) 6.2 Absolute Lymphs (auto) 6.42 H Total Counted Not Reportable Differential Comment SCANNED Reactive Lymphocytes PT INR APTT 29.9 Sodium 137 Potassium 3.7 Chloride 103 Carbon Dioxide 29.0 Anion Gap 5 BUN 6 L Creatinine 0.74 Estim Creat Clear Calc 98.27 Est GFR (MDRD) Af Amer 105 Est GFR (MDRD) Non-Af 87 BUN/Creatinine Ratio 8.1 L Glucose 256 H Hemoglobin A1c Calcium 8.8 Troponin I < 0.015 TSH Urine Color Urine Clarity Urine pH Ur Specific [place] Urine Protein Urine Glucose (UA) Urine Ketones Urine Occult Blood Urine Nitrite Urine Bilirubin Urine Urobilinogen Ur Leukocyte Esterase Urine RBC Urine WBC Ur Squamous Epith Cells Urine Bacteria Urine Mucus Urine Test 08/18/18 08/18/18 08/18/18 13:10 16:55 20:14 WBC RBC Hgb Hct MCV MCH MCHC RDW RDW Differential Plt Count MPV Immature Gran % (Auto) Neut % (Auto) Lymph % (Auto) [place] % (Auto) Eos % (Auto) Baso % (Auto) Absolute Neuts (auto) Absolute Lymphs (auto) Total Counted Differential Comment Reactive Lymphocytes PT INR APTT Sodium Potassium Chloride Carbon Dioxide Anion Gap BUN Creatinine Estim Creat Clear Calc Est GFR (MDRD) Af Amer Est GFR (MDRD) Non-Af BUN/Creatinine Ratio Glucose Hemoglobin A1c Calcium Troponin I < 0.015 < 0.015 TSH Urine Color Yellow Urine Clarity Clear Urine pH 7.0 Ur Specific [place] 1.010 Urine Protein Negative Urine Glucose (UA) Normal Urine Ketones Negative Urine Occult Blood Negative Urine Nitrite Negative Urine Bilirubin Negative Urine Urobilinogen 1 H Ur Leukocyte Esterase Negative Urine RBC 0 SEEN Urine WBC 0 SEEN Ur Squamous Epith Cells 0-5 SEEN Urine Bacteria 0 SEEN Urine Mucus 0 SEEN Urine Test 08/18/18 08/19/18 08/19/18 20:14 05:05 05:05 WBC 11.2 H RBC 4.53 Hgb 13.7 Hct 41.1 MCV 90.7 MCH 30.2 MCHC 33.3 RDW 13.3 RDW Differential 43.8 Plt Count 141 L MPV 11.6 Immature Gran % (Auto) 0.300 Neut % (Auto) 36.7 L Lymph % (Auto) 57.1 H [place] % (Auto) 4.4 Eos % (Auto) 1.1 Baso % (Auto) 0.4 Absolute Neuts (auto) 4.1 Absolute Lymphs (auto) 6.38 H Total Counted Not Reportable Differential Comment SCANNED Reactive Lymphocytes 2+ PT INR APTT Sodium 140 Potassium 3.6 Chloride 106 Carbon Dioxide 27.0 Anion Gap 7 BUN 9 Creatinine 0.70 Estim Creat Clear Calc 103.88 Est GFR (MDRD) Af Amer 113 Est GFR (MDRD) Non-Af 94 BUN/Creatinine Ratio 12.9 Glucose 204 H Hemoglobin A1c Calcium 8.7 Troponin I TSH 1.26 Urine Color Urine Clarity Urine pH Ur Specific [place] Urine Protein Urine Glucose (UA) Urine Ketones Urine Occult Blood Urine Nitrite Urine Bilirubin Urine Urobilinogen Ur Leukocyte Esterase Urine RBC Urine WBC Ur Squamous Epith Cells Urine Bacteria Urine Mucus Urine Test Negative 08/19/18 08/19/18 05:05 05:05 WBC RBC Hgb Hct MCV MCH MCHC RDW RDW Differential Plt Count MPV Immature Gran % (Auto) Neut % (Auto) Lymph % (Auto) [place] % (Auto) Eos % (Auto) Baso % (Auto) Absolute Neuts (auto) Absolute Lymphs (auto) Total Counted Differential Comment Reactive Lymphocytes PT 13.1 INR 1.0 APTT 30.9 Sodium Potassium Chloride Carbon Dioxide Anion Gap BUN Creatinine Estim Creat Clear Calc Est GFR (MDRD) Af Amer Est GFR (MDRD) Non-Af BUN/Creatinine Ratio Glucose Hemoglobin A1c 8.6 H Calcium Troponin I TSH Urine Color Urine Clarity Urine pH Ur Specific [place] Urine Protein Urine Glucose (UA) Urine Ketones Urine Occult Blood Urine Nitrite Urine Bilirubin Urine Urobilinogen Ur Leukocyte Esterase Urine RBC Urine WBC Ur Squamous Epith Cells Urine Bacteria Urine Mucus Urine Test POC Glucose 08/19/18 08/18/18 08/18/18 06:41 21:23 16:42 POC Glucose 201 H 219 H 195 H Discharge Activity: May Not Drive - for 1-2 day Call your doctor if you observe: Fever of 101 or Higher, Coldness, Increased Pain, Inability to have a bowel movement, Shortness of breath, Dizziness, Fainting spells, Swelling in the ankles, Chest pain, Increased palpitations (irregular heartbeat) Home Medications: Medications to take at Discharge Hydrochlorothiazide 25 mg PO DAILY 02/28/13 Levothyroxine [Synthroid] 400 mcg PO DAILY 01/02/16 Aspirin [Aspirin EC] 81 mg PO DAILY 05/22/18 Clopidogrel Bisulfate [Plavix] 75 mg PO DAILY 05/22/18 Atorvastatin Calcium 80 mg PO QHS 08/18/18 Isosorbide Mononitrate [Imdur] 30 mg PO DAILY #30 tablet 08/19/18 Metformin(XR) [Glucophage Xr] 1,000 mg PO DAILY #0 08/19/18 Metformin(XR) [Glucophage Xr] 500 mg PO QHS #0 08/19/18 Metoprolol Tartrate [Lopressor (beta james)] 25 mg PO BID #0 08/19/18 Nitroglycerin [Nitrostat] 0.4 mg SUBLINGUAL Q5M PRN #30 tablet 08/19/18 Following Prescrptions Were Given to Patient: Isosorbide Mononitrate [Imdur] 30 mg PO DAILY #30 tablet Nitroglycerin [Nitrostat] 0.4 mg SUBLINGUAL Q5M PRN #30 tablet PRN Reason: Cardiac/Chest Pain Primary Care Physician: Evelia Davis FRUIT GRADER OPERATOR-C [NON-STAFF] - Please follow up with your Primary Care Physician in: in 2 week Please Follow Up With: Tacho Carreon MD When: in 3-4 weeks Medical Necessity - Tobacco Use Smoking Status: Heavy Smoker (>10/day) Tobacco Use: Cigarettes Meaningful Use Info Meaningful Use Diagnoses (Choose all that apply): None applicable Code Visit OBSV E&M: 76098 Observation care discharge
== END 2018-08-19 09:06 | disposition home or self-care (01) ==
LOC: ED 14:15 → PCU 14:25
PROVIDERS: Internal Medicine Cardiovascular Disease; Admitting Provider Family Medicine; Emergency Provider Emergency Medicine; Visit Provider Internal Medicine
DX: I25.110 Atherosclerotic heart disease of native coronary artery with unstable angina pectoris (principal); E03.9 Hypothyroidism, unspecified; I10 Essential (primary) hypertension; E11.9 Type 2 diabetes mellitus without complications; Z79.899 Other long term (current) drug therapy; Z79.84 Long term (current) use of oral hypoglycemic drugs; Z79.82 Long term (current) use of aspirin; Z79.02 Long term (current) use of antithrombotics/antiplatelets; F17.210 Nicotine dependence, cigarettes, uncomplicated; H02.60 Xanthelasma of unspecified eye, unspecified eyelid; Z95.5 Presence of coronary angioplasty implant and graft
CPT/HCPCS: 36415; 71046; 80048; 81001; 81025; 82962; 83036; 84443; 84484; 85025; 85610; 85730; 93005; 93458; 96372; 99152; 99153; 99218; 99283; 99406; J7030; J7040; A4216; C1769; C1894; G0378; Q9967

== ENCOUNTER 2022-01-19 20:45 | Inpatient (IN) | payer SELFPAY ==
[2022-01-19] VITALS (7 sets, daily range): BP systolic 126–158; BP diastolic 77–88; PULSE 72–84; RESP 13–21; TEMP 36.6–37.3; O2SAT 91–96; BMI 25.3; BMI 25.2
--- NOTE | 2022-01-19 20:49 | EKG12_ITS ---
Test Reason : CP Blood Pressure : / mmHG Vent. Rate : 084 BPM Atrial Rate : 084 BPM P-R Int : 184 ms QRS Dur : 082 ms QT Int : 382 ms P-R-T Axes : 056 002 073 degrees QTc Int : 451 ms Normal sinus rhythm Normal ECG Confirmed by BOB DELONG, TIKI ([id number]), acquisition editor BROWN KIRKLAND ([id number]) on 01/23/2022 9:30:48 AM Referred By: RUEL Confirmed By:RONNIE ROJAS MD
--- NOTE | 2022-01-19 20:50 | EDS_ITS ---
HPI History of Present Illness Chief Complaint: Chest Pain Informant: patient Narrative Narrative: Presenting with left-sided chest pressure pain tingling down left arm an hour prior to arrival. Sitting outside smoking cigarettes. History of 4 coronary stents last times October [address] Olivera at [facility]. She is on aspirin and Plavix took her dosing this morning. Smoker's cough. History of hypertension, diabetes, hyperlipidemia. Family history of MIs at young age. Reports 2 days ago with noted sinus congestion home COVID test was positive. She is not vaccinated. Mild headache. No fevers or myalgias. No dyspnea. Denies nausea or vomiting. Denies diaphoresis. Prior Similar Symptoms: Yes CVD Risk Factors: Positive for Hypertension, Diabetes, Hypercholesterolemia, Fam nolberto History 1' </=[address] [facility] Medical History (Updated 01/20/22 @ 01:[address] Usama Davidson DO) Atherosclerotic heart disease of [place] coronary artery without angina pectoris Cholecystectomy planned DM w/o complication type II Essential hypertension Hypothyroidism Other and unspecified hyperlipidemia Home Medications hydrochlorothiazide 25 mg tablet 25 mg PO DAILY 02/28/13 [History Last Taken 08/18/18] clopidogrel 75 mg tablet 75 mg PO DAILY 05/22/18 [History Last Taken 08/18/18] atorvastatin 80 mg tablet 80 mg PO QHS 08/18/18 [History Last Taken 08/18/18] metoprolol tartrate 25 mg tablet 25 mg PO BID ##0 08/19/18 [Rx Last Taken 08/18/18] nitroglycerin 0.4 mg sublingual tablet 0.4 mg sublingual Q5M PRN Cardiac/Chest Pain #30 tabs 08/19/18 [Rx Last Taken Unknown] aspirin 81 mg tablet,delayed release 81 mg PO DAILY 10/16/19 [History Last Taken Unknown] cholecalciferol (vitamin D3) 25 mcg (1,000 unit) tablet 4,000 unit PO DAILY 10/16/19 [History Last Taken Unknown] levothyroxine 200 mcg capsule 200 mcg PO DAILY #30 caps 10/16/19 [Rx Last Taken Unknown] metformin 1,000 mg tablet 1,000 mg PO BID 10/16/19 [History Last Taken Unknown] levothyroxine 300 mcg tablet 300 mcg PO DAILY 01/19/22 [History Last Taken Unknown] Allergy/AdvReac Type Severity Reaction Status Date / Time codeine Allergy Hives Verified 10/16/19 09:56 hydromorphone HCl Allergy Chest Verified 10/16/19 09:56 [From Dilaudid] tightness lisinopril Allergy Other Verified 10/16/19 09:56 tree and shrub pollen Allergy NEEDS Verified 12/20/21 16:21 FOLLOW-UP Family History Father Cancer Hodgkins Heart disease Mother Hypertension Surgical History History of partial hysterectomy S/P appendectomy Stented coronary artery (~2015) Social History (Updated 01/19/22 @ 23:[address] Negra Cheung MD) household members: none Smoking Status: Current every day smoker tobacco type: cigarettes Smoking packs per day: 0.5 Smoking cigarettes per day: 10.0 alcohol intake: current alcohol intake frequency: holidays/special occasions only substance use type: does not use what type of physical activity do you participate in: other ROS ROS ED Constitutional Constitutional ED: Denies chills, fever(s) or sweats Eyes Eyes: Denies change in vision ENT ENT ED: Denies dysphagia or sore throat Cardiovascular Cardiovascular: Reports chest pain; Denies leg edema, palpitations or racing heartbeat Respiratory/Chest Respiratory/Chest: Reports cough; Denies dyspnea or dyspnea on exertion Gastrointestinal Gastrointestinal: Denies abdominal pain, diarrhea, nausea or vomiting Genitourinary Genitourinary ED: Denies dysuria, hematuria or urinary frequency Musculoskeletal Musculoskeletal: Denies back pain, extremity pain or neck pain Integumentary Denies rash or wounds Neurologic Neurologic: Denies headache(s), paresthesias or weakness EXAM Physical Exam Const Vital Signs: 01/19/22 20:35 01/19/22 20:41 01/19/22 20:52 Temperature 99.2 F H Temperature Source Oral Pulse Rate 78 Respiratory Rate 14 Respiratory Effort Normal Blood Pressure 140/87 H Blood Pressure Mean 104 Pulse Ox 95 Oxygen Delivery Method Room Air Room Air 01/19/22 21:28 01/19/22 21:34 01/19/22 21:40 Temperature Temperature Source Pulse Rate 74 79 75 Respiratory Rate 13 Respiratory Effort Blood Pressure 141/81 H 136/88 H 140/86 H Blood Pressure Mean 104 Pulse Ox 94 Oxygen Delivery Method Room Air Positive well nourished and well developed General Appearance ED: well developed and NAD HEENT Reports moist mucous membranes normocephalic and atraumatic Eyes PERRL, EOMs intact bilaterally and conjunctivae normal General Eye ED: Yes normal appearance of both eyes Neck no lymphadenopathy and supple Neck Narrative: No meningismus. General: Negative for tenderness Chest Wall Chest: Negative for tenderness Resp normal respiratory effort and normal air movement Effort and Inspection: symmetric chest movement; Negative for respiratory distress Cardio regular rate, regular rhythm and no murmurs Peripheral Pulses: pulses 2+ throughout GI normal to inspection, nondistended, normoactive bowel sounds and non-tender Palpation: Negative for guarding or rebound tenderness present Back/Spine no CVA tenderness and no thoracic nor lumbar tenderness Extremity normal to inspection General Extremety ED: Negative for edema or tenderness General Extremity: Negative for edema Neuro oriented x3 and no sensory deficits noted Sensorium / Orientation: awake and alert Skin no rashes or lesions noted and no wounds Heart Score History: Moderately Suspicious ECG: Normal Age: >45 - <65 years Risk Factors: >/= 3 Risk Factors or History of CAD Troponin: >/=3 x Normal Limit Score: 6 MDM MDM MDM Narrative Medical decision making narrative: Patient presents with chest pain status post aspirin by EMS. Nitro series ordered. EKG sinus cardiac work-up noted initial troponin of 4390. She is having improving symptoms with nitro. Potassium 3.4 is orally replaced. Hemoglobin 14. Platelets 118. COVID-positive home test 2 days ago this was rechecked in the ED returning positive. I spoke with covering outsole rounder Dr. Tovar, requests heparin infusion. This was ordered. Echocardiogram tomorrow morning. He will evaluate for further treatment and care due to COVID diagnosis. Patient updated. I spoke with hospitalist Dr. Cheung for admission. 1 view chest x-ray reviewed by myself read by radiology shows no acute process. Lab Data Attestation: I reviewed the patient's lab results. Labs: Laboratory Results - last 24 hr 01/19/22 01/19/22 01/19/22 20:40 20:40 20:40 WBC 10.0 RBC 4.77 Hgb 14.0 Hct 41.1 MCV 86.2 MCH 29.4 MCHC 34.1 RDW Std Deviation 43.6 RDW Coeff of Rubens 13.9 Plt Count 118 L MPV 11.2 Immature Gran % (Auto) [employer] Neut % (Auto) [employer] Lymph % (Auto) [employer] Coal % (Auto) [employer] Eos % (Auto) [employer] Baso % (Auto) [employer] Absolute Neuts (auto) 4.2 Absolute Lymphs (auto) 5.18 H Total Counted 100 Neutrophils % (Manual) 63 Lymphocytes % (Manual) 33 Monocytes % (Manual) 3 Eosinophils % (Manual) 1 Nucleated RBC % 0 Plt Morphology Comment 0.07 Anisocytosis 1+ PT 12.8 INR 1.0 APTT 29.0 Sodium 143 Potassium 3.4 L Chloride 109 H Carbon Dioxide 28.0 Anion Gap 6 BUN 9 Creatinine 0.70 Estim Creat Clear Calc 100.30 Est GFR (MDRD) Af Amer 112 Est GFR (MDRD) Non-Af 92 BUN/Creatinine Ratio 12.9 Glucose 172 H Calcium 9.0 Magnesium Ferritin Lactate Dehydrogenase Troponin I High Sens 4390 H* C-React Prot Ext Range B-Natriuretic Peptide 01/19/22 01/19/22 01/19/22 20:40 20:40 21:48 WBC RBC Hgb Hct MCV MCH MCHC RDW Std Deviation RDW Coeff of Rubens Plt Count MPV Immature Gran % (Auto) Neut % (Auto) Lymph % (Auto) Coal % (Auto) Eos % (Auto) Baso % (Auto) Absolute Neuts (auto) Absolute Lymphs (auto) Total Counted Neutrophils % (Manual) Lymphocytes % (Manual) Monocytes % (Manual) Eosinophils % (Manual) Nucleated RBC % Plt Morphology Comment Anisocytosis PT 13.6 INR 1.1 APTT 28.7 Sodium Potassium Chloride Carbon Dioxide Anion Gap BUN Creatinine Estim Creat Clear Calc Est GFR (MDRD) Af Amer Est GFR (MDRD) Non-Af BUN/Creatinine Ratio Glucose Calcium Magnesium 1.8 Ferritin 352 H Lactate Dehydrogenase 218 Troponin I High Sens C-React Prot Ext Range < 2.90 B-Natriuretic Peptide 172.5 H Radiography Diagnostic Testing: Clinical Impression(s) from Imaging Studies Chest X-Ray 01/19/22 20:55 IMPRESSION: Normal x-ray examination of the chest. Electronically Signed: Janice Khan MD at 21:12 EDT Reading Location ID and State: [id number] / Tel , Service support , EKG Initial EKG: Attestation: I personally reviewed and interpreted this EKG as follows: Comments: Sinus rate of 84, no ST or T wave changes. Critical Care Time Critical Care Time: Yes Critical care time (excluding procedures): 30-74 minutes, Discussing w/Patient &/or Family/School Psychologist, Discussing w/Consultants, Arranging Admission or Transfer, Performing Direct Patient Care at Bedside and - (35 minutes) Discharge Plan Dx/Rx/DC Orders Clinical Impression: Non-ST elevation [place] (NSTEMI), Chest pain, COVID-19, Diabetes, Hypertension, Smoking Disposition Disposition: Acute Care Hospital [facility] Discharge Date/Time: 01/19/22 23:18
--- NOTE | 2022-01-19 20:55 | RAD_ITS ---
STUDY: X-RAY CHEST REASON FOR EXAM: Female, 56 years old. chest pain TECHNIQUE: Single AP portable view of the chest. COMPARISON: . FINDINGS: The lungs are clear and expanded. There is no demonstrated pleural abnormality. Normal size heart. Normal mediastinum and regis. Normal visualized pulmonary arteries. Normal visualized aortic arch and descending thoracic aorta. Normal visualized thoracic spine. Normal visualized ribs, clavicles, and shoulders. There is no demonstrated abnormality of the visualized soft tissue structures of the upper abdomen. RAD/Chest 1 View (Portable) IMPRESSION: Normal x-ray examination of the chest. Electronically Signed: Janice Khan MD at 21:12 EDT Reading Location ID and State: [id number] / Tel , Service support ,
[2022-01-19 21:07] LABS: Prothrombin Time (Protime)PT. 12.8 SECONDS (11.7-14.9)
[2022-01-19 21:24] LABS: Anion Gap 6 (5-15); BUN 9 mg/dL (7-18); BUN/Creat Ratio 12.9 RATIO (10-20); Chloride 109 mmol/L (98-107); EST Glomerular Filtration Rate 92 mL/min (>60); Est Glom Filt Rate - Afr Amer 112 mL/min (>60); Glucose 172 mg/dL (74-106); Potassium 3.4 mmol/L (3.5-5.1); Sodium Level 143 mmol/L (136-145); Troponin-I HS (w/2H Reflex) 4390 pg/mL (3.0-54.0)
[2022-01-19] MEDS: Nitroglycerin SL (ED/IMG/CATH) 0.4 MG TABLET SL ×2 (21:28→21:40)
[2022-01-19] MEDS: Heparin Injection (Vial) 5,000 UNIT/ML VIAL 4000 UNIT IV (21:50)
--- NOTE | 2022-01-19 21:51 | HP.PCM.HOS_ITS ---
HPI - General General Date of Admission: 01/19/22 Date of Service: 01/19/22 Chief Complaint: Chest pain HPI Narrative The patient is a 56 y/o F w/ PMHx: Tobacco use, CAD s/p PCI x 4 with last 10/2019 [facility], HTN, HLD, Hypothyroidism, Diabetes mellitus type II who presents to the [facility] ED on 01/19/22 with history of onset left-sided chest discomfort described as a pressure/squeezing rated 4-5/10 in severity with tingling sensation down her left upper extremity starting approximately 1 hour prior to arrival while sitting outside smoking cigarettes reporting taking her aspirin and Plavix on day of presentation with recent onset of sinus congestion and sore throat starting 2 days prior (01/17/22) with a positive home COVID test reporting that she is not vaccinated with concurrently a mild frontal headache with no fevers or myalgias nor any dyspnea with chronic unchanged cough prompting ED evaluation. She upon ED evaluation notes complete resolution of her chest pain but notes she has been resting. Work-up in the ED included T99.2, heart rate 78, BP 140/87, respiratory rate 14, 94 to 95% on room air, chest x-ray with no acute cardiopulmonary findings, CBC pending upon requested evaluation of patient, unremarkable coags, BMP with potassium 3.4, chloride 109, glucose 172, troponin initial 4390, rapid COVID antigen pending upon requested evaluation of patient, EKG with SR with no acute evidence of ischemia. In the ED patient administered oral potassium, heparin bolus and drip. ED discussed case with Cardiology Dr. Tovar who given COVID + status requested ECHO be obtained, heparin bolus and drip with planned evaluation and decision for catheterization versus medical management until COVID resolved. minutes. [facility] Medical History (Updated 01/19/22 @ 23:[address] Negra Cheung MD) Atherosclerotic heart disease of [place] coronary artery without angina pectoris Cholecystectomy planned DM w/o complication type II Essential hypertension Hypothyroidism Other and unspecified hyperlipidemia Home Medications hydrochlorothiazide 25 mg tablet 25 mg PO DAILY 02/28/13 [History Last Taken 08/18/18] clopidogrel 75 mg tablet 75 mg PO DAILY 05/22/18 [History Last Taken 08/18/18] atorvastatin 80 mg tablet 80 mg PO QHS 08/18/18 [History Last Taken 08/18/18] metoprolol tartrate 25 mg tablet 25 mg PO BID ##0 08/19/18 [Rx Last Taken 08/18/18] nitroglycerin 0.4 mg sublingual tablet 0.4 mg sublingual Q5M PRN Cardiac/Chest Pain #30 tabs 08/19/18 [Rx Last Taken Unknown] aspirin 81 mg tablet,delayed release 81 mg PO DAILY 10/16/19 [History Last Taken Unknown] cholecalciferol (vitamin D3) 25 mcg (1,000 unit) tablet 4,000 unit PO DAILY 10/16/19 [History Last Taken Unknown] levothyroxine 200 mcg capsule 200 mcg PO DAILY #30 caps 10/16/19 [Rx Last Taken Unknown] metformin 1,000 mg tablet 1,000 mg PO BID 10/16/19 [History Last Taken Unknown] levothyroxine 300 mcg tablet 300 mcg PO DAILY 01/19/22 [History Last Taken Unknown] Allergy/AdvReac Type Severity Reaction Status Date / Time codeine Allergy Hives Verified 10/16/19 09:56 hydromorphone HCl Allergy Chest Verified 10/16/19 09:56 [From Dilaudid] tightness lisinopril Allergy Other Verified 10/16/19 09:56 tree and shrub pollen Allergy NEEDS Verified 12/20/21 16:21 FOLLOW-UP Family History Father Cancer Hodgkins Heart disease Mother Hypertension Surgical History History of partial hysterectomy S/P appendectomy Stented coronary artery (~2015) Social History (Updated 01/19/22 @ 23:[address] Negra Cheung MD) household members: none Smoking Status: Current every day smoker tobacco type: cigarettes Smoking packs per day: 0.5 Smoking cigarettes per day: 10.0 alcohol intake: current alcohol intake frequency: holidays/special occasions only substance use type: does not use what type of physical activity do you participate in: other ROS ROS Narrative Admission Review of Systems: CONSTITUTIONAL: No weight loss, fever, chills, + weakness or fatigue. HEENT: + headache, congestion, sore throat. Eyes: No visual loss, blurred vision, double vision or yellow sclerae. Ears, Nose, Throat: No hearing loss, sneezing. SKIN: No rash or itching, lesions, wounds. CARDIOVASCULAR: + chest pain, chest pressure or chest discomfort, No palpitations, edema, orthopnea, syncopal events. RESPIRATORY: No shortness of breath, cough or sputum, wheezing, hemoptysis. GASTROINTESTINAL: + anorexia, No marked nausea, vomiting or diarrhea, abdominal pain, melena, BRBPR. GENITOURINARY: No dysuria, frequency, urgency or retention. NEUROLOGICAL: + headache, dizziness, syncope, paralysis, ataxia, numbness or tingling in the extremities, focal weakness, change in bowel or bladder control, seizure. MUSCULOSKELETAL: + muscle, back pain, joint pain or stiffness. HEMATOLOGIC: + anemia, bleeding or bruising. LYMPHATICS: No enlarged nodes. No history of splenectomy. PSYCHIATRIC: No history of depression or anxiety. ENDOCRINOLOGIC: No reports of sweating, cold or heat intolerance. No polyuria or polydipsia. ALLERGIES: No history of asthma, hives, eczema or rhinitis. Vital Signs Vital Signs Vital Signs: 01/19/22 20:35 01/19/22 20:41 01/19/22 20:52 Temperature 99.2 F H Temperature Source Oral Pulse Rate 78 Respiratory Rate 14 Respiratory Effort Normal Blood Pressure 140/87 H Blood Pressure Mean 104 Pulse Ox 95 Oxygen Delivery Method Room Air Room Air 01/19/22 21:28 01/19/22 21:34 01/19/22 21:40 Temperature Temperature Source Pulse Rate 74 79 75 Respiratory Rate 13 Respiratory Effort Blood Pressure 141/81 H 136/88 H 140/86 H Blood Pressure Mean 104 Pulse Ox 94 Oxygen Delivery Method Room Air Weight Weight: 181 lb 10.574 oz Body Mass Index (BMI) 25.3 Physical Exam Narrative Physical Examination: General: Awake, alert, oriented x 3 and cooperative, seated upright in the ED bed, fatigued, notes chest pain resolved. Skin: Normal color, normal turgor, no icterus, no cyanosis. HEENT: AT/NC, EOMI, PERRLA, mildly dry MM, no carotid bruits or JVD noted, mildly hoarse voice. Lungs: Diminished, greater bases, mildly increased respiratory rate but no distress, occasional end expiratory wheeze, no rales or rhonchi. Heart: Regular rate and rhythm; no gallop, rub audible. Abdomen: Soft, overweight, NTTP, ND, mildly hyperactive BS, no HSM. Extremities: No cyanosis, clubbing, or edema. Neurological: Patient awake, alert, oriented as noted, cognitive function intact; pupils equally reactive to light and accommodation, cranial nerves II-XII grossly normal, moving all 4 extremities, no focal deficits, strength mildly to moderately global decrease secondary to acute presentation. Psychiatric: Affect appears flat, fatigued, no acute evidence of depressive or anxiety feelings. Results Lab / Micro Data Result Diagrams: 01/19/22 20:40 01/19/22 20:40 Labs: Laboratory Results - last 24 hr 01/19/22 20:40: PT 12.8, INR 1.0, APTT 29.0 01/19/22 20:40: Sodium 143, Potassium 3.4 L, Chloride 109 H, Carbon Dioxide 28.0, Anion Gap 6, BUN 9, Creatinine 0.70, Estim Creat Clear Calc 100.30, Est GFR (MDRD) Af Amer 112, Est GFR (MDRD) Non-Af 92, BUN/Creatinine Ratio 12.9, Glucose 172 H, Calcium 9.0, Troponin I High Sens 4390 H* Radiology Impression Chest X-Ray 01/19/22 20:55 IMPRESSION: Normal x-ray examination of the chest. Electronically Signed: Janice Khan MD at 21:12 EDT Reading Location ID and State: [id number] / Tel , Service support , Assessment & Plan Assessment/Plan (1) NSTEMI, initial episode of care: (2) COVID-19: PLAN: Plan The patient is a 56 y/o F w/ PMHx: Tobacco use, CAD s/p PCI x 4 with last 10/2019 [facility], HTN, HLD, Hypothyroidism, Diabetes mellitus type II who presents to the [facility] ED on 01/19/22 with history of onset left-sided chest discomfort described as a pressure/squeezing rated 4-5/10 in severity with tingling sensation down her left upper extremity starting approximately 1 hour prior to arrival while sitting outside smoking cigarettes reporting taking her aspirin and Plavix on day of presentation with recent onset of sinus congestion and sore throat starting 2 days prior (01/17/22) with a positive home COVID test reporting that she is not vaccinated with concurrently a mild frontal headache with no fevers or myalgias nor any dyspnea with chronic unchanged cough prompting ED evaluation. #1. Acute Viral Syndrome, COVID-19: Will admit to the PCU given #2, maintain on COVID precautions, will maintain on oxygen with wean as tolerated to room air, PRN albuterol, HOB, IS parameters w/ pending sputum cultures, respiratory viral panel and urine antigens, will obtain D-dimer, procalcitonin, CRP, CPK, Ferritin, LDH and BNP, continue to cycle trop given #2, continue supportive care including q 2 hour turning including prone given no prone bed availability and judicious hydration, closely monitor for worsening status for ARDS and multiorgan failure, will initiate and continue IV decadron x 10 doses given oxygenation down to 94% in the ED, as not requiring oxygen will hold on IV remdesivir but continue to monitor and initiate if hypoxic. #2. Chest Pain w/ Acute NSTEMI: EKG in ED w/ sinus rhythm with no acute evidence of ischemia, CXR w/ no acute cardiopulmonary finding. Trop elevated, 4390. Will admit to PCU, maintain on a monitored bed, continue serial cardiac enzymes and EKGs. Obtain magnesium level upon admission. Start Heparin drip with bolus. Continue medical management. AM FLP. Echocardiogram requested per cardiology request. Cardiology consulted, noted intention for evaluation for consideration medical management versus cardiac catheterization. Did discuss awaiting D-dimer and if elevated CTPA will be obtained especially in the setting of acute COVID illness. ASA, NG, morphine. #3. Hypokalemia: Admission K+ 3.4, magnesium level requested, supplementation given, repeat level in AM. #4. CAD: Status post PCI x4, will continue aspirin, Plavix, statin, metoprolol, not on NUVIA inhibitor or ARB. #5. Hypertension: Continue home regimen including metoprolol, hydrochlorothiazide with hold parameters as needed, PRN hydralazine. #6. Hyperlipidemia: Continue home statin regimen. AM FLP. #7. Hypothyroidism: We will continue patient on levothyroxine regimen. #8. Tobacco Abuse: Encouraged cessation, inpatient consultation per RT, NR if desired. #9. Diabetes mellitus type II: Hold oral home regimen, ADA diet until n.p.o. status at midnight 8 cardiology evaluation be cautious, accu checks w/ ISS. #10. DVT prophylaxis: SCDs, continue heparin drip as noted. #11. CODE status: Patient does not have healthcare power of mergers and acquisitions attorney nor living will in place. Discussed CODE status at length including difference between FULL code, DNR-CCA and DNR-CC status. Following discussions about the differences in these status, requested Full Code status. Discussed current COVID status and amenable if necessary to treatment with antiviral regimen. Advanced Care Planning Face to Face Time: 16 minutes. Charges/Coding Visit Charges Inpatient E&M: 64580 Init Hosp L3 Procedures Hospitalists Procedures: 22776 Advncd Care Plan 30 Min
[2022-01-19] MEDS: HEPARIN/D5w 25,000 UNITS 25,000 UNITS/250 ML IV.SOLN. 10 UNITS CONT INF (21:52)
[2022-01-19 21:54] LABS: Eosinophil 1 % (0-5); Lymphocyte 33 % (19-41); Monocyte 3 % (0-10); Neutrophil-Segmented 63 % (47-70); Total Cells Counted 100 (MANUAL DIFF)
[2022-01-19 21:55] LABS: Anisocytosis 1+
[2022-01-19] MEDS: Potassium Chloride Oral Tablet 20 MEQ 40 MEQ PO (21:56)
[2022-01-19 22:12] LABS: International Normalized Ratio 1.1; Prothrombin Time (Protime)PT. 13.6 SECONDS (11.7-14.9)
[2022-01-19 22:13] LABS: Partial Thromboplast Time 28.7 Seconds (24.1-36.2)
[2022-01-19 22:35] LABS: BNP,B-Type NATRIURETIC PEPTIDE 172.5 pg/mL (0-100)
[2022-01-19 22:38] LABS: CRP < 2.90 mg/L (0.0-3.0); Ferritin 352 ng/mL (8-252); LDH 218 U/L (84-246); Magnesium 1.8 mg/dL (1.6-2.6)
[2022-01-19 22:45] LABS: Procalcitonin < 0.01 ng/mL (0.00-0.09)
[2022-01-19 22:54] LABS: Reflex Troponin-HS? (from REC) Y
[2022-01-19 23:04] LABS: Partial Thromboplast Time 125.4 Seconds (24.1-36.2)
[2022-01-19 23:07] LABS: Absolute Lymphocyte Count 5.18 X10^3/uL (0.83-4.51); Absolute Neutrophil Count 4.2 X10^3/uL (2.0-7.7); Basophil# 0.03 X10^3/uL; Eosinophil# 0.07 X10^3/uL; Hematocrit 41.1 % (37-47); Lymphocyte # 5.18 X10^3/ul (0.83-4.51); Mean Corp Hgb Conc 34.1 g/dL (32-36); Mean Corpuscular Hgb 29.4 pg (27.0-32.0); Mean Corpuscular Volume 86.2 fL (81-99); Mean Platelet Vol. 11.2 fl (6.2-12.0); Monocyte# 0.49 X10^3/uL; NRBC Flagged by Analyzer 0 % (0-5); Neutrophil # 4.23 X10^3/uL (2.7-7.7); POSITIVE DIFFERENTIAL YES; POSITIVE MORPHOLOGY YES; Platelet Count 118 K/mm3 (150-450); RBC Distribution Width CV 13.9 % (11.6-14.6); RBC Distribution Width SD 43.6 fl (35.1-43.9); Red Blood Count 4.77 M/mm3 (4.2-5.4)
[2022-01-19 23:09] LABS: Differential Indicated SCAN CRITERIA MET
[2022-01-19 23:11] LABS: Platelet Morphology 0.07
[2022-01-19 23:12] LABS: Scan Smear per Review Criteria MANUAL DIFF
[2022-01-19 23:26] LABS: D-Dimer Quantitative (DVT/PE) 0.74 FEU/ug/m (0.27-0.49)
--- NOTE | 2022-01-19 23:28 | EKG12_ITS ---
Test Reason : cp admit Blood Pressure : / mmHG Vent. Rate : 075 BPM Atrial Rate : 075 BPM P-R Int : 190 ms QRS Dur : 084 ms QT Int : 404 ms P-R-T Axes : 057 011 071 degrees QTc Int : 451 ms Normal sinus rhythm Normal ECG When compared with ECG of 19-AUG-2018 05:35, No significant change was found Confirmed by BOB DELONG, TIKI ([id number]), newspaper photo editor BROWN KIRKLAND ([id number]) on 01/23/2022 9:46:27 AM Referred By: Confirmed By:RONNIE ROJAS MD
--- NOTE | 2022-01-19 23:28 | ECHOD_ITS ---
Reason For Study: NSTEMI Procedure This was a 2D Doppler, Color Flow transthoracic echocardiogram. Exam performed portable in patient room. The exam was abbreviated due to the COVID 19 protocol. Left Ventricle Normal LV size. The estimated ejection fraction is 65-70 %. No regional wall motion abnormalities noted. Right Ventricle Normal RV size. Normal systolic function. Atria Normal left atrium. Normal right atrium. No doppler evidence for ASD. Mitral Valve There is no mitral valve stenosis. Trivial mitral valve insufficiency. Tricuspid Valve There is no tricuspid stenosis. Unable to estimate RV systolic pressure due to inadequate jet, pulmonary artery pressure probably normal. Aortic Valve Trisinus/trileaflet aortic valve. Aortic sclerosis, no stenosis. There is no aortic stenosis. No aortic valve insufficiency. Pulmonic Valve There is no pulmonic valvular stenosis. No pulmonic valve insufficiency. Great Vessels Normal aortic root. Pericardium/Pleural No pericardial effusion. MMode/2D Measurements & Calculations LVIDd: 4.5 cm IVSd: 1.1 cm Ao root diam: 3.6 cm LVIDs: 2.9 cm LVPWd: 1.1 cm LA dimension: 3.7 cm FS: 35.9 % Doppler Measurements & Calculations PA V2 max: 85.7 cm/sec ECHO/Echo Complete Interpretation Summary The estimated ejection fraction is 65-70 %. Trivial mitral valve insufficiency. Ordering Physician: Negra Cheung Performed By: Baldemar Cardona RCS
[2022-01-19 23:59] LABS: Troponin-I HS 5025 pg/mL (3.0-54.0)
[2022-01-20] VITALS (13 sets, daily range): BP systolic 117–139; BP diastolic 56–77; PULSE 68–82; RESP 16–18; TEMP 36.8–37.7; O2SAT 93–96
[2022-01-20] MEDS: 0.9% Normal Saline 1,000 ML 100 ML IV (00:07)
[2022-01-20] MEDS: Atorvastatin Calcium 80 MG Tablet PO ×2 (00:08→21:10)
--- NOTE | 2022-01-20 00:11 | CT_ITS ---
STUDY: CTA CHEST REASON FOR EXAM: Female, 56 years old patient with chest pain. Suspect pulmonary embolus. RADIATION DOSAGE (If Supplied By Facility): CTDIvol = ( 11.37 ) mGy, DLP = ( 426.84 ) mGycm TECHNIQUE: The examination was performed with the intravenous administration of 100 mL of Isovue-370. Post-processing of the angiographic images was performed, with multiplanar reformation and 3D reconstruction. Individualized dose optimization techniques were used for this CT. COMPARISON: None. FINDINGS: Cardiac monitoring leads are present. Normal enhancement of the main pulmonary artery and right and left pulmonary arteries. Normal enhancement of the bilateral peripheral pulmonary arteries. There is no demonstrated pulmonary embolism. There is mild atherosclerotic calcification of the aortic arch with tortuosity. There is no demonstrated aortic dissection. Normal heart and pericardium. There are calcifications of the coronary arteries. Normal mediastinum. Normal hilar regions. Normal visualized trachea and bronchi. The lungs are well expanded. There are curvilinear opacities in the lingula that may represent pulmonary fibrosis or subsegmental atelectasis. Normal pleura. Normal chest wall structures. Normal osseous structures. Normal visualized upper abdomen. CT/CTA Chest W/WO Contrast IMPRESSION: No CTA demonstrated pulmonary embolism or arterial dissection. Electronically Signed: Lucinda Jean-Baptiste MD at 2:03 EDT ,
[2022-01-20] MEDS: Ipratropium/Albuterol Sulfate 3 ML AMPUL.NEB INHALATION (00:24)
[2022-01-20 00:31] LABS: Bedside Glucose 153 mg/dL (74-106)
[2022-01-20 03:20] LABS: Absolute Neutrophil Count 4.8 X10^3/uL (2.0-7.7); Basophil# 0.02 X10^3/uL; Basophil% 0.2 % (0-1); Eosinophil# 0.06 X10^3/uL; Eosinophils% 0.6 % (0-5); Hematocrit 39.4 % (37-47); Hemoglobin 13.4 g/dL (12.0-15.0); Lymphocyte % 45.1 % (19-41); Mean Corpuscular Hgb 29.3 pg (27.0-32.0); Mean Corpuscular Volume 86.2 fL (81-99); Mean Platelet Vol. 11.2 fl (6.2-12.0); Monocyte# 0.43 X10^3/uL; Monocyte% 4.4 % (0-10); NRBC Flagged by Analyzer 0 % (0-5); Neutrophil # 4.81 X10^3/uL (2.7-7.7); Neutrophil % 49.4 % (47-70); POSITIVE MORPHOLOGY YES; Platelet Count 100 K/mm3 (150-450); RBC Distribution Width CV 13.7 % (11.6-14.6); RBC Distribution Width SD 43.1 fl (35.1-43.9); Red Blood Count 4.57 M/mm3 (4.2-5.4); White Blood Count 9.8 K/mm3 (4.4-11.0)
[2022-01-20 03:35] LABS: Partial Thromboplast Time 48.2 Seconds (24.1-36.2)
[2022-01-20 03:52] LABS: ALB/GLOB Ratio 0.9 RATIO (0.9-2.4); AST(SGOT) 31 U/L (15-37); Alanine Aminotransfer ALT/SGPT 27 U/L (13-56); Alkaline Phosphatase 59 U/L (45-117); Anion Gap 5 (5-15); BUN 8 mg/dL (7-18); BUN/Creat Ratio 12.7 RATIO (10-20); Calcium,Total 8.1 mg/dL (8.5-10.1); Chloride 110 mmol/L (98-107); Cholesterol 162 mg/dL (200); Creatinine, Serum 0.63 mg/dL (0.55-1.02); EST Glomerular Filtration Rate 104 mL/min (>60); Est Glom Filt Rate - Afr Amer 125 mL/min (>60); Estimated Creatinine Clearance 111.44 ml/min; Globulin 3.2 g/dL (2.2-4.2); Glucose 188 mg/dL (74-106); High Density Lipoprotein 25 mg/dL; Potassium 3.5 mmol/L (3.5-5.1); Protein, Total 6.2 g/dL (6.4-8.2); Sodium Level 139 mmol/L (136-145); Triglycerides 494 mg/dL
[2022-01-20 03:53] LABS: Troponin-I HS 3951 pg/mL (3.0-54.0)
[2022-01-20 04:22] LABS: Differential Indicated SCAN CRITERIA MET
[2022-01-20 04:31] LABS: Differential Comment SCANNED
[2022-01-20] MEDS: Levothyroxine 100 MCG Tablet 300 MCG PO (05:41)
[2022-01-20 06:51] LABS: Bedside Glucose 187 mg/dL (74-106)
[2022-01-20] MEDS: Metoprolol Tartrate 25 MG Tablet PO ×2 (08:25→21:11)
[2022-01-20] MEDS: Aspirin E.C. 81 MG Tablet PO (08:25)
[2022-01-20] MEDS: Clopidogrel Bisulfate 75 MG Tablet PO (08:25)
[2022-01-20] MEDS: hydroCHLOROthiazide 25 MG Tablet PO (08:25)
[2022-01-20 08:26] LABS: Thyroid Stim Hormone (TSH) 0.05 uIU/mL (0.358-3.74)
[2022-01-20 09:45] LABS: Hemoglobin A1c 7.3 % (3.8-5.6)
[2022-01-20 10:23] LABS: Partial Thromboplast Time 47.4 Seconds (24.1-36.2)
--- NOTE | 2022-01-20 10:23 | CASEMGMT ---
RN CM LADLE WATCHER IRAM placed call to pt's room for initial transition planning/care coordination assessment. RN IRAM introduced self and role at [facility].? Pt voices understanding and consents to assessment at this time.? Pt is A/O at this time and answers all questions appropriately.?? Care providers, pharmacy, and demographics verified/updated at this time. PCP: Ivory Cui Specialists: none Preferred Pharmacy: [facility] or [facility] Insurance: none. Self-pay Prescription Benefit:? none Living Will/HPOA:? Pt does not currently have LW/HCPOA. Pt made aware that she can contact SW as an out-pt and make appt in the future if she decides she would like to talk with someone about this or would like to utilize [facility] social work for advanced directive completion.???Pt made aware she has [employer] [facility] [employer] card with information and contact number in [facility] folder. Pt expresses understanding.? LNOK: 2 sons. Mother, Tequila Living Arrangements: Lives w/friend in 2-story home w/3 steps to enter. Denies difficulty w/stairs. Independent. Transportation:?Pt states drives self and states no transportation concerns at this time.? DME: Has a functioning glucometer w/supplies. Does not have home O2 or pulse ox. Reviewed list of DME providers consistent w/pt's geographic region and medical needs. Pt states she does not have a preference and is agreeable to [employer]. HHC/SNF: No hx of either. Pt wishes to return home and states has no concerns with going home at time of discharge.? CM to follow for home oxygen needs and any further discharge planning/needs.? Pt voices no further concerns/needs at this time.? Advised pt to ask for CM if any further questions/concerns/needs arise.? Voices understanding. PLAN:?Home? Nagi TILLMAN RN, CM
[2022-01-20] MEDS: Heparin Injection (Vial) 5,000 UNIT/ML VIAL IV (10:50)
--- NOTE | 2022-01-20 13:31 | PCM.CONS.C ---
Assessment & Plan Assessment/Plan (1) Non-ST elevation [place] (NSTEMI): PLAN: Patient's troponin is already trending down. 2D echo does not reveal significant wall motion abnormalities. Patient has COVID-19 infection as well. At this time it will be reasonable to treat her non-STEMI medically if she continues to do well clinically. Coronary angiography could be considered in about 1 week. (2) COVID-19: HPI Consult Data Date of Consult: 01/20/22 HPI Narrative Reason for Consultation: NSTEMI HPI Narrative: EMERITA COOLEY, is a 56 F who presents with chest pain. Patient was found to have elevated troponin that peaked at 5025 and is coming down. Patient has been on heparin drip overnight. She has history of coronary artery disease status post PCI with a last 1 apparently in October 2019 at [facility]. Patient also was having upper respiratory symptoms on 01/17/2022 and her home COVID test was positive. Overnight she has done well and currently does not have significant chest pain. 2D echo revealed no significant regional wall motion abnormalities. [facility] Medical History (Updated 01/20/22 @ 01:[address] Usama Davidson DO) Atherosclerotic heart disease of [place] coronary artery without angina pectoris Cholecystectomy planned DM w/o complication type II Essential hypertension Hypothyroidism Other and unspecified hyperlipidemia Home Medications hydrochlorothiazide 25 mg tablet 25 mg PO DAILY 02/28/13 [History Last Taken 08/18/18] clopidogrel 75 mg tablet 75 mg PO DAILY 05/22/18 [History Last Taken 08/18/18] atorvastatin 80 mg tablet 80 mg PO QHS 08/18/18 [History Last Taken 08/18/18] metoprolol tartrate 25 mg tablet 25 mg PO BID ##0 08/19/18 [Rx Last Taken 08/18/18] nitroglycerin 0.4 mg sublingual tablet 0.4 mg sublingual Q5M PRN Cardiac/Chest Pain #30 tabs 08/19/18 [Rx Last Taken Unknown] aspirin 81 mg tablet,delayed release 81 mg PO DAILY 10/16/19 [History Last Taken Unknown] cholecalciferol (vitamin D3) 25 mcg (1,000 unit) tablet 4,000 unit PO DAILY 10/16/19 [History Last Taken Unknown] levothyroxine 200 mcg capsule 200 mcg PO DAILY #30 caps 10/16/19 [Rx Last Taken Unknown] metformin 1,000 mg tablet 1,000 mg PO BID 10/16/19 [History Last Taken Unknown] levothyroxine 300 mcg tablet 300 mcg PO DAILY 01/19/22 [History Last Taken Unknown] Allergy/AdvReac Type Severity Reaction Status Date / Time codeine Allergy Hives Verified 10/16/19 09:56 hydromorphone HCl Allergy Chest Verified 10/16/19 09:56 [From Dilaudid] tightness lisinopril Allergy Other Verified 10/16/19 09:56 tree and shrub pollen Allergy NEEDS Verified 12/20/21 16:21 FOLLOW-UP Family History Father Cancer Hodgkins Heart disease Mother Hypertension Surgical History History of partial hysterectomy S/P appendectomy Stented coronary artery (~2015) Social History (Updated 01/19/22 @ 23:[address] Negra Cheung MD) household members: none Smoking Status: Current every day smoker tobacco type: cigarettes Smoking packs per day: 0.5 Smoking cigarettes per day: 10.0 alcohol intake: current alcohol intake frequency: holidays/special occasions only substance use type: does not use what type of physical activity do you participate in: other Physical Exam Const alert and oriented x3 HEENT normocephalic Eyes no scleral icterus Cardio regular rate and regular rhythm Psych mental status grossly normal Risk Stratification Risk Stratification Applicable: No Charges/Coding Visit Charges Inpatient E&M: 96517 Init Hosp L2 Objective Data Vital Signs: Vital Signs Temp Pulse Resp BP Pulse Ox O2 Del Method 98.3 F 68 16 118/56 L 93 Room Air 01/20/22 08:16 01/20/22 10:58 01/20/22 08:16 01/20/22 08:16 01/20/22 08:18 01/20/22 08:18 Oxygen Delivery Method Room Air Weight: 181 lb 7.047 oz Body Mass Index (BMI) 25.2 Intake & Output: Intake and Output for Last 24 Hours 01/18/22 01/19/22 01/20/22 23:59 23:59 23:59 Intake Total 1156.63 / 1156.63 Balance 1156.63 / 1156.63 Lab / Micro Data Result Diagrams: 01/20/22 03:05 01/20/22 03:05 Labs: Laboratory Results - last 24 hr 01/19/22 20:40: WBC 10.0, RBC 4.77, Hgb 14.0, Hct 41.1, MCV 86.2, MCH 29.4, MCHC 34.1, RDW Std Deviation 43.6, RDW Coeff of Rubens 13.9, Plt Count 118 L, MPV 11.2, Immature Gran % (Auto) ARMORED CAR DRIVER, Neut % (Auto) ARMORED CAR DRIVER, Lymph % (Auto) ARMORED CAR DRIVER, [place] % (Auto) ARMORED CAR DRIVER, Eos % (Auto) ARMORED CAR DRIVER, Baso % (Auto) ARMORED CAR DRIVER, Absolute Neuts (auto) 4.2, Absolute Lymphs (auto) 5.18 H, Total Counted 100, Neutrophils % (Manual) 63, Lymphocytes % (Manual) 33, Monocytes % (Manual) 3, Eosinophils % (Manual) 1, Nucleated RBC % 0, Plt Morphology Comment 0.07, Anisocytosis 1+ 01/19/22 20:40: PT 12.8, INR 1.0, APTT 29.0 01/19/22 20:40: Sodium 143, Potassium 3.4 L, Chloride 109 H, Carbon Dioxide 28.0, Anion Gap 6, BUN 9, Creatinine 0.70, Estim Creat Clear Calc 100.30, Est GFR (MDRD) Af Amer 112, Est GFR (MDRD) Non-Af 92, BUN/Creatinine Ratio 12.9, Glucose 172 H, Calcium 9.0, Troponin I High Sens 4390 H* 01/19/22 20:40: Magnesium 1.8, Ferritin 352 H, Lactate Dehydrogenase 218, C-React Prot Ext Range < 2.90 01/19/22 20:40: B-Natriuretic Peptide 172.5 H 01/19/22 21:48: PT 13.6, INR 1.1, APTT 28.7 01/19/22 22:09: Procalcitonin < 0.01 01/19/22 22:43: APTT 125.4 H*, D-Dimer Quant (PE/DVT) 0.74 H* 01/19/22 23:10: Troponin I High Sens 5025 H* 01/20/22 00:03: POC Glucose 153 H 01/20/22 03:05: WBC 9.8, RBC 4.57, Hgb 13.4, Hct 39.4, MCV 86.2, MCH 29.3, MCHC 34.0, RDW Std Deviation 43.1, RDW Coeff of Rubens 13.7, Plt Count 100 L, MPV 11.2, Immature Gran % (Auto) 0.300, Neut % (Auto) 49.4, Lymph % (Auto) 45.1 H, [place] % (Auto) 4.4, Eos % (Auto) 0.6, Baso % (Auto) 0.2, Absolute Neuts (auto) 4.8, Absolute Lymphs (auto) 4.40, Nucleated RBC % 0, Differential Comment SCANNED 01/20/22 03:05: Sodium 139, Potassium 3.5, Chloride 110 H, Carbon Dioxide 24.0, Anion Gap 5, BUN 8, Creatinine 0.63, Estim Creat Clear Calc 111.44, Est GFR (MDRD) Af Amer 125, Est GFR (MDRD) Non-Af 104, BUN/Creatinine Ratio 12.7, Glucose 188 H, Calcium 8.1 L, Total Bilirubin 0.30, AST 31, ALT 27, Alkaline Phosphatase 59, Total Protein 6.2 L, Albumin 3.0 L, Globulin 3.2, Albumin/Globulin Ratio 0.9, Triglycerides 494 H, Cholesterol 162, LDL Cholesterol TNP, VLDL Cholesterol TNP, HDL Cholesterol 25 L 01/20/22 03:05: Troponin I High Sens 3951 H* 01/20/22 03:05: APTT 48.2 H 01/20/22 03:05: Hemoglobin A1c 7.3 H 01/20/22 03:05: TSH 0.05 L 01/20/22 05:39: POC Glucose 187 H 01/20/22 09:50: APTT 47.4 H Micro: Microbiology 01/20/22 00:40 Mucosa - Nasopharyngeal Respiratory Panel (PCR) - Final 01/20/22 00:07 Urine, Clean Catch Legionella Antigen - Final 01/20/22 00:07 Urine, Clean Catch Streptococcus pneumoniae Antigen (M - Final 01/19/22 21:32 Nasal Secretion SARS-CoV-2 Antigen (Rapid) - Final SARS-CoV-2 (COVID 19) Cardiology Labs/Tests 01/19/22 20:40: WBC 10.0, RBC 4.77, Hgb 14.0, Hct 41.1, MCV 86.2, MCH 29.4, MCHC 34.1, Plt Count 118 L, MPV 11.2, Immature Gran % (Auto) ARMORED CAR DRIVER, Neut % (Auto) ARMORED CAR DRIVER, Lymph % (Auto) ARMORED CAR DRIVER, [place] % (Auto) ARMORED CAR DRIVER, Eos % (Auto) ARMORED CAR DRIVER, Baso % (Auto) ARMORED CAR DRIVER, Absolute Neuts (auto) 4.2, Total Counted 100, Neutrophils % (Manual) 63, Lymphocytes % (Manual) 33, Monocytes % (Manual) 3, Eosinophils % (Manual) 1, Nucleated RBC % 0 01/19/22 20:40: PT 12.8, INR 1.0, APTT 29.0 01/19/22 20:40: Sodium 143, Potassium 3.4 L, Chloride 109 H, Carbon Dioxide 28.0, Anion Gap 6, BUN 9, Creatinine 0.70, Est GFR (MDRD) Af Amer 112, Est GFR (MDRD) Non-Af 92, BUN/Creatinine Ratio 12.9, Glucose 172 H, Calcium 9.0 01/19/22 20:40: Magnesium 1.8, Ferritin 352 H 01/19/22 20:40: B-Natriuretic Peptide 172.5 H 01/19/22 21:48: PT 13.6, INR 1.1, APTT 28.7 01/19/22 22:43: APTT 125.4 H*, D-Dimer Quant (PE/DVT) 0.74 H* 01/20/22 03:05: WBC 9.8, RBC 4.57, Hgb 13.4, Hct 39.4, MCV 86.2, MCH 29.3, MCHC 34.0, Plt Count 100 L, MPV 11.2, Immature Gran % (Auto) 0.300, Neut % (Auto) 49.4, Lymph % (Auto) 45.1 H, [place] % (Auto) 4.4, Eos % (Auto) 0.6, Baso % (Auto) 0.2, Absolute Neuts (auto) 4.8, Nucleated RBC % 0 01/20/22 03:05: Sodium 139, Potassium 3.5, Chloride 110 H, Carbon Dioxide 24.0, Anion Gap 5, BUN 8, Creatinine 0.63, Est GFR (MDRD) Af Amer 125, Est GFR (MDRD) Non-Af 104, BUN/Creatinine Ratio 12.7, Glucose 188 H, Calcium 8.1 L, Total Bilirubin 0.30, Triglycerides 494 H, Cholesterol 162, LDL Cholesterol TNP, VLDL Cholesterol TNP, HDL Cholesterol 25 L 01/20/22 03:05: APTT 48.2 H 01/20/22 03:05: Hemoglobin A1c 7.3 H 01/20/22 09:50: APTT 47.4 H Rhythm: EKG: ECHO: Stress Test: Cardiac Cath: PCI: CT Surgery: Holter monitor: EPS: PPM: CXR: Chest CT Scan: Radiography Diagnostic Testing: Radiology Impression Chest X-Ray 01/19/22 20:55 IMPRESSION: Normal x-ray examination of the chest. Electronically Signed: Janice Khan MD at 21:12 EDT , Echocardiogram 01/19/22 23:28 Interpretation Summary The estimated ejection fraction is 65-70 %. Trivial mitral valve insufficiency. Ordering Physician: Negra Cheung Performed By: Baldemar Cardona RCS Chest CTA 01/20/22 00:11 IMPRESSION: No CTA demonstrated pulmonary embolism or arterial dissection. Electronically Signed: Lucinda Jean-Baptiste MD at 2:03 EDT ,
--- NOTE | 2022-01-20 15:06 | PN.HOSP_ITS ---
Subjective Subjective Patient admitted for chest pain. Currently is asymptomatic and chest pain-free. Has a marked history of coronary disease. Cardiology consult is pending. Remains on room air with regards to her COVID and fairly asymptomatic otherwise. Objective Data Objective Data Vital Signs: Vital Signs Temp Pulse Resp BP Pulse Ox O2 Del Method 98.3 F 68 16 118/56 L 93 Room Air 01/20/22 08:16 01/20/22 10:58 01/20/22 08:16 01/20/22 08:16 01/20/22 08:18 01/20/22 08:18 Oxygen Delivery Method Room Air Weight: 82.3 kg Body Mass Index (BMI) 25.2 Intake & Output: Intake and Output for Last 24 Hours 01/18/22 01/19/22 01/20/22 23:59 23:59 23:59 Intake Total 1156.63 / 1156.63 Balance 1156.63 / 1156.63 Lab / Micro Data Result Diagrams: 01/20/22 03:05 01/20/22 03:05 Labs: Laboratory Results - last 24 hr 01/19/22 20:40: WBC 10.0, RBC 4.77, Hgb 14.0, Hct 41.1, MCV 86.2, MCH 29.4, MCHC 34.1, RDW Std Deviation 43.6, RDW Coeff of Rubens 13.9, Plt Count 118 L, MPV 11.2, Immature Gran % (Auto) THERAPIST OCCUPATIONAL, Neut % (Auto) THERAPIST OCCUPATIONAL, Lymph % (Auto) THERAPIST OCCUPATIONAL, [place] % (Auto) THERAPIST OCCUPATIONAL, Eos % (Auto) THERAPIST OCCUPATIONAL, Baso % (Auto) THERAPIST OCCUPATIONAL, Absolute Neuts (auto) 4.2, Absolute Lymphs (auto) 5.18 H, Total Counted 100, Neutrophils % (Manual) 63, Lymphocytes % (Manual) 33, Monocytes % (Manual) 3, Eosinophils % (Manual) 1, Nucleated RBC % 0, Plt Morphology Comment 0.07, Anisocytosis 1+ 01/19/22 20:40: PT 12.8, INR 1.0, APTT 29.0 01/19/22 20:40: Sodium 143, Potassium 3.4 L, Chloride 109 H, Carbon Dioxide 28.0, Anion Gap 6, BUN 9, Creatinine 0.70, Estim Creat Clear Calc 100.30, Est GFR (MDRD) Af Amer 112, Est GFR (MDRD) Non-Af 92, BUN/Creatinine Ratio 12.9, Glucose 172 H, Calcium 9.0, Troponin I High Sens 4390 H* 01/19/22 20:40: Magnesium 1.8, Ferritin 352 H, Lactate Dehydrogenase 218, C- React Prot Ext Range < 2.90 01/19/22 20:40: B-Natriuretic Peptide 172.5 H 01/19/22 21:48: PT 13.6, INR 1.1, APTT 28.7 01/19/22 22:09: Procalcitonin < 0.01 01/19/22 22:43: APTT 125.4 H*, D-Dimer Quant (PE/DVT) 0.74 H* 01/19/22 23:10: Troponin I High Sens 5025 H* 01/20/22 00:03: POC Glucose 153 H 01/20/22 03:05: WBC 9.8, RBC 4.57, Hgb 13.4, Hct 39.4, MCV 86.2, MCH 29.3, MCHC 34.0, RDW Std Deviation 43.1, RDW Coeff of Rubens 13.7, Plt Count 100 L, MPV 11.2, Immature Gran % (Auto) 0.300, Neut % (Auto) 49.4, Lymph % (Auto) 45.1 H, [place] % (Auto) 4.4, Eos % (Auto) 0.6, Baso % (Auto) 0.2, Absolute Neuts (auto) 4.8, Absolute Lymphs (auto) 4.40, Nucleated RBC % 0, Differential Comment SCANNED 01/20/22 03:05: Sodium 139, Potassium 3.5, Chloride 110 H, Carbon Dioxide 24.0, Anion Gap 5, BUN 8, Creatinine 0.63, Estim Creat Clear Calc 111.44, Est GFR (MDRD) Af Amer 125, Est GFR (MDRD) Non-Af 104, BUN/Creatinine Ratio 12.7, Glucose 188 H, Calcium 8.1 L, Total Bilirubin 0.30, AST 31, ALT 27, Alkaline Phosphatase 59, Total Protein 6.2 L, Albumin 3.0 L, Globulin 3.2, Albumin/Globulin Ratio 0.9, Triglycerides 494 H, Cholesterol 162, LDL Cholesterol TNP, VLDL Cholesterol TNP, HDL Cholesterol 25 L 01/20/22 03:05: Troponin I High Sens 3951 H* 01/20/22 03:05: APTT 48.2 H 01/20/22 03:05: Hemoglobin A1c 7.3 H 01/20/22 03:05: TSH 0.05 L 01/20/22 05:39: POC Glucose 187 H 01/20/22 09:50: APTT 47.4 H Micro: Microbiology 01/20/22 00:40 Mucosa - Nasopharyngeal Respiratory Panel (PCR) - Final 01/20/22 00:07 Urine, Clean Catch Legionella Antigen - Final 01/20/22 00:07 Urine, Clean Catch Streptococcus pneumoniae Antigen (M - Final 01/19/22 21:32 Nasal Secretion SARS-CoV-2 Antigen (Rapid) - Final SARS-CoV-2 (COVID 19) Radiography Diagnostic Testing: Radiology Impression Chest X-Ray 01/19/22 20:55 IMPRESSION: Normal x-ray examination of the chest. Electronically Signed: Janice Khan MD at 21:12 EDT , Echocardiogram 01/19/22 23:28 Interpretation Summary The estimated ejection fraction is 65-70 %. Trivial mitral valve insufficiency. Ordering Physician: Negra Cheung Performed By: Baldemar Cardona, CAM Chest CTA 01/20/22 00:11 IMPRESSION: No CTA demonstrated pulmonary embolism or arterial dissection. Electronically Signed: Lucinda Jean-Baptiste MD at 2:03 EDT , Physical Exam Const alert, oriented x3, no apparent distress, average body habitus and well nourished Constitutional Narrative: Middle-aged white female sitting up in bed on the phone upon my arrival but hangs up upon my arrival, appears comfortable nontoxic HEENT head/scalp atraumatic, moist oral mucous membranes and oropharynx normal HEENT Narrative: Mallampati 2, dentition is fair, no thrush Resp normal respiratory effort, no retractions, no use of accessory muscles and clear to auscultation bilaterally Resp Narrative: Diffusely diminished but clear Auscultation: Negative for crackles, rales, rhonchi or wheezes Cardio regular rate, regular rhythm, S1 normal heart sound, S2 normal heart sound, no murmurs, no rub, no gallops, no clicks and no JVD GI normal to inspection, nondistended, normoactive bowel sounds, soft to palpation and non-tender Extremity no clubbing, cyanosis or edema Extremity Narrative: 2+ pedal pulses Neuro oriented x3, CN's II-XII intact bilaterally, moves all extremities and no focal motor deficits Speech: speech normal Psych affect normal Assessment & Plan Assessment/Plan (1) Chest pain: (2) Non-ST elevation [place] (NSTEMI): (3) COVID-19: (4) Thrombocytopenia: (5) Abnormal results of thyroid function studies: PLAN: Plan NSTEMI -Currently chest pain-free -Markedly elevated cardiac enzymes -Per cardiology documentation echo shows normal EF with no wall motion abnormalities -Troponin is trending down -Plan will be to continue medical therapy with aspirin/Plavix/statin none/metoprolol and follow-up with patient in approximately 1 week when she is over with her acute COVID infection for coronary angiography -Will allow patient to eat with cardiac carb controlled diet -Discontinue heparin drip -Monitor for any further chest pain -Appreciate cardiology input Acute COVID-19 infection -Patient is fairly asymptomatic -Currently on room air -Continue to monitor clinically if she remains stable will likely discharge home tomorrow -Discontinue Decadron Abnormal thyroid function studies with history of hypothyroidism -Patient is on levothyroxine of what looks to be 500 mcg daily--> will have to clarify dosing -TSH is low -Free T4 is pending--> may need to dose adjust levothyroxine -Have patient follow-up with endocrinology after discharge if free T4 is abnormally low -Could be euthyroid sick with NSTEMI and acute COVID-19 infection Thrombocytopenia -Trending down -Suspect related to acute COVID-19 infection as she has been normal previously -Continue to monitor with CBC in a.m. Hypokalemia -Resolved CAD -History of PCI x4 previously -Continue home medications as noted above Hypertension -Continue metoprolol/hydrochlorothiazide -As needed hydralazine available for systolic greater than 160 Hyperlipidemia -Patient's maxed out on a statin -FLP shows a markedly elevated triglyceride level likely related to her uncontrolled diabetes -May need to consider Tricor but will have patient follow-up with endocrinology after discharge DM-2 -Uncontrolled with hemoglobin A1c of 7.3 -Hold metformin -Sliding scale -Accu-Cheks -Cardiac carb controlled diet -Recommended outpatient endocrinology follow-up after discharge as the patient would benefit from tight control given her coronary history Tobacco abuse -Strongly encouraged tobacco cessation -Nicotine replacement if desired DVT prophylaxis -SCDs -Heparin drip discontinued -If unable to discharge tomorrow we will start Jennax CODE STATUS -Full code Charges/Coding Visit Charges Inpatient E&M: 40929 Subs Hosp L2
[2022-01-20 15:43] LABS: T4 Free Direct 2.14 ng/dL (0.76-1.46)
[2022-01-20 16:05] LABS: Bedside Glucose 147 mg/dL (74-106)
--- NOTE | 2022-01-20 16:25 | CASEMGMT ---
SW spoke with patient and asked if she would like a Medicaid application. Patient said it would be pointless as she makes too much. Sera Sandoval MSW KRISS
[2022-01-20] MEDS: 0.9% Saline Lock 10 ML Syringe IV (21:11)
[2022-01-20 22:10] LABS: Bedside Glucose 138 mg/dL (74-106)
[2022-01-21 03:00] VITALS: BP 101/60; PULSE 70; RESP 16; TEMP 37.8; O2SAT 94
[2022-01-21] MEDS: Acetaminophen 325 MG Tablet 650 MG PO ×2 (03:08→10:15)
[2022-01-21 03:53] VITALS: PULSE 65
[2022-01-21] MEDS: Levothyroxine 100 MCG Tablet 200 MCG PO (06:30)
[2022-01-21] MEDS: Insulin Lispro 100 UNIT/ML INSULN.PEN SC (06:30)
[2022-01-21 06:37] VITALS: PULSE 67
[2022-01-21 07:00] LABS: Bedside Glucose 157 mg/dL (74-106)
[2022-01-21 07:19] LABS: Absolute Lymphocyte Count 4.33 X10^3/uL (0.83-4.51); Absolute Neutrophil Count 4.7 X10^3/uL (2.0-7.7); Basophil# 0.02 X10^3/uL; Basophil% 0.2 % (0-1); Eosinophil# 0.05 X10^3/uL; Eosinophils% 0.5 % (0-5); Hematocrit 40.7 % (37-47); Hemoglobin 13.9 g/dL (12.0-15.0); Lymphocyte # 4.33 X10^3/ul (0.83-4.51); Lymphocyte % 44.2 % (19-41); Mean Corp Hgb Conc 34.2 g/dL (32-36); Mean Corpuscular Hgb 29.7 pg (27.0-32.0); Mean Platelet Vol. 11.5 fl (6.2-12.0); Monocyte# 0.59 X10^3/uL; NRBC Flagged by Analyzer 0 % (0-5); Neutrophil # 4.74 X10^3/uL (2.7-7.7); Neutrophil % 48.5 % (47-70); Platelet Count 112 K/mm3 (150-450); RBC Distribution Width CV 13.9 % (11.6-14.6); RBC Distribution Width SD 44.2 fl (35.1-43.9); Red Blood Count 4.68 M/mm3 (4.2-5.4); White Blood Count 9.8 K/mm3 (4.4-11.0)
--- NOTE | 2022-01-21 10:11 | DS.PCM_ITS ---
Providers Date of Admission: 01/19/22 Date of Discharge: 01/21/22 Primary Care Physician: [facility] Consultations 01/19/22 23:28 Consult: Cardiology Routine Consulting Provider: Ashwin Tovar Reason for Consult: CP, NSTEMI in setting of COVID EMERGENT Consult: No MD Notified: Yes Date Notified: 01/19/22 Time Notified: 22:00 Method of Notification: ED Physician Initiated Reason For Visit: NSTEMI, COVID Diagnosis Discharge Diagnosis (1) Chest pain: Status: Acute Code(s): R07.9 - Chest pain, unspecified (2) Non-ST elevation [place] (NSTEMI): Status: Acute Code(s): I21.4 - Non-ST elevation (NSTEMI) myocardial infarction (3) COVID-19: Status: Acute Code(s): U07.1 - COVID-19 (4) Thrombocytopenia: Status: Acute Code(s): D69.6 - Thrombocytopenia, unspecified (5) Abnormal results of thyroid function studies: Status: Acute Code(s): R94.6 - Abnormal results of thyroid function studies Plan NSTEMI -Currently chest pain-free -Markedly elevated cardiac enzymes -Per cardiology documentation echo shows normal EF with no wall motion abnormalities -Troponin is trending down -Plan will be to continue medical therapy with aspirin/Plavix/statin none/metoprolol and follow-up with patient in approximately 1 week when she is over with her acute COVID infection for coronary angiography -Will allow patient to eat with cardiac carb controlled diet -Discontinue heparin drip -Monitor for any further chest pain -Appreciate cardiology input Acute COVID-19 infection -Patient is fairly asymptomatic -Currently on room air -Continue to monitor clinically if she remains stable will likely discharge home tomorrow -Discontinue Decadron Abnormal thyroid function studies with history of hypothyroidism -Patient is on levothyroxine of what looks to be 500 mcg daily--> will have to clarify dosing -TSH is low -Free T4 is pending--> may need to dose adjust levothyroxine -Have patient follow-up with endocrinology after discharge if free T4 is abnormally low -Could be euthyroid sick with NSTEMI and acute COVID-19 infection Thrombocytopenia -Trending down -Suspect related to acute COVID-19 infection as she has been normal previously -Continue to monitor with CBC in a.m. Hypokalemia -Resolved CAD -History of PCI x4 previously -Continue home medications as noted above Hypertension -Continue metoprolol/hydrochlorothiazide -As needed hydralazine available for systolic greater than 160 Hyperlipidemia -Patient's maxed out on a statin -FLP shows a markedly elevated triglyceride level likely related to her uncontrolled diabetes -May need to consider Tricor but will have patient follow-up with endocrinology after discharge DM-2 -Uncontrolled with hemoglobin A1c of 7.3 -Hold metformin -Sliding scale -Accu-Cheks -Cardiac carb controlled diet -Recommended outpatient endocrinology follow-up after discharge as the patient would benefit from tight control given her coronary history Tobacco abuse -Strongly encouraged tobacco cessation -Nicotine replacement if desired DVT prophylaxis -SCDs -Heparin drip discontinued -If unable to discharge tomorrow we will start Lovenox CODE STATUS -Full code Medications at Discharge Home Medications hydrochlorothiazide 25 mg tablet 25 mg PO DAILY 02/28/13 clopidogrel 75 mg tablet 75 mg PO DAILY 05/22/18 atorvastatin 80 mg tablet 80 mg PO QHS 08/18/18 metoprolol tartrate 25 mg tablet 25 mg PO BID ##0 08/19/18 nitroglycerin 0.4 mg sublingual tablet 0.4 mg sublingual Q5M PRN Cardiac/Chest Pain #30 tabs 08/19/18 aspirin 81 mg tablet,delayed release 81 mg PO DAILY 10/16/19 cholecalciferol (vitamin D3) 25 mcg (1,000 unit) tablet 4,000 unit PO DAILY 10/16/19 metformin 1,000 mg tablet 1,000 mg PO BID 10/16/19 levothyroxine 200 mcg capsule 200 mcg PO DAILY #30 caps 01/21/22 Hospital Course Operations None Procedures 2-D Echocardiogram, EKG and - (CTA chest) Summary of Care Provided Minutes Spent on Discharge: 37 Hospital Course: Ms. Ferguson is a 56-year-old white female presents emergency department [facility] on 01/19/2022 complaining of chest pain. Upon presentation she reported as pressure/squeezing and rated at 4-5 out of 10 in severity. She had a tingling sensation down her left upper extremity starting an hour prior to arrival while she was sitting outside smoking a cigarette. She notes she is compliant with her aspirin and Plavix and complained of recent sinus congestion and a sore throat starting 2 days prior for which she took a home COVID test. COVID test was positive at that time. On admission she reported a mild frontal headache but no fevers, myalgias, dyspnea, new cough or nausea, vomiting, or diarrhea. Work-up in the ED included T99.2, heart rate 78, BP 140/87, respiratory rate 14, 94 to 95% on room air, chest x-ray with no acute cardiopulmonary findings, CBC pending upon requested evaluation of patient, unremarkable coags, BMP with potassium 3.4, chloride 109, glucose 172, troponin initial 4390, rapid COVID antigen pending upon requested evaluation of patient, EKG with SR with no acute evidence of ischemia. In the ED patient administered oral potassium, heparin bolus and drip. ED discussed case with Cardiology Dr. Tovar who given COVID + status requested ECHO be obtained, heparin bolus and drip with planned evaluation and decision for catheterization versus medical management until COVID resolved. She was admitted to the medical floor and her cardiac enzymes were cycled. Her initial high-sensitivity troponin was 3951 with follow-up at 5025 and her third troponin was 4390. An echocardiogram was performed and showed an EF of 65 to 70% with trivial mitral valve insufficiency but otherwise was normal with no wall motion abnormality. A CTA of her chest was performed on admission and showed no acute findings including pulmonary embolism or arterial dissection. She was evaluated by cardiology and they felt that she was safe to discharge home given the fact that her chest pain had resolved, her echo shows no wall motion abnormalities, and her troponin had trended down so quickly. They would like her to follow-up within the next 1 to 2 weeks after quarantine has been completed for outpatient evaluation with noninvasive versus invasive cardiac testing to be decided upon at that time. Patient has hypothyroidism at baseline from a history of thyroid cancer for which she takes levothyroxine 200 mcg alternating with 300 mcg. A TSH was obtained and found to be low at 0.05. Free T4 was followed up and was 2.14. I suspect she is overmedicated with regards to her thyroid medications and we changed her dosing from 300 alternating with 200 to just 200 daily and advised her to follow-up within the next 6 weeks for a follow-up TSH to reassess her thyroid function. I did write a prescription for Synthroid 200 mcg and asked her to follow-up with the [facility] within the next 6 weeks. She is also to call on Sunday to make an appoint with cardiology to be seen within the next 2 weeks for further evaluation. She was able to be discharged home in stable condition and did not require any oxygen throughout her entire hospitalization. Oxygen saturations at rest on room air were 94% and 97% with ambulation. She was given a pulse oximetry to monitor oxygen levels at home given her COVID-19 infection. We did strongly recommend tobacco cessation. Discharge diagnoses: NSTEMI Acute COVID-19 infection History of hypothyroidism with abnormal thyroid function studies Thrombocytopenia Hypokalemia CAD Hypertension Hyperlipidemia DM-2 Tobacco abuse Physical Exam Const alert, oriented x3, no apparent distress, average body habitus and well nourished Constitutional Narrative: Middle-aged white female sitting up in bed watching television, appears comfortable, nontoxic General Appearance: cooperative, comfortable, well kempt and well developed Orientation / Consciousness: awake Exam Limitations: no limitations HEENT normocephalic, head/scalp atraumatic, hearing grossly normal bilaterally, moist oral mucous membranes and oropharynx normal HEENT Narrative: Mallampati 3, no thrush, tongue is pierced Eyes PERRL, EOMs intact bilaterally and conjunctivae normal Eyes Narrative: No scleral icterus Neck no lymphadenopathy, supple and no JVD Neck Narrative: Trachea midline, no thyroid enlargement Resp normal respiratory effort, no retractions, no use of accessory muscles and clear to auscultation bilaterally Resp Narrative: Diffusely diminished but clear Auscultation: Negative for crackles, rales, rhonchi or wheezes Cardio regular rate, regular rhythm, S1 normal heart sound, S2 normal heart sound, no murmurs, no rub, no gallops, no clicks and no JVD GI normal to inspection, nondistended, normoactive bowel sounds, soft to palpation and non-tender Extremity no clubbing, cyanosis or edema Extremity Narrative: 2+ pedal pulses Skin no rashes or lesions noted, no wounds, skin turgor normal and no jaundice Neuro oriented x3, CN's II-XII intact bilaterally, moves all extremities, no focal motor deficits and no sensory deficits noted Sensorium / Orientation: awake, alert, oriented to person, oriented to place and oriented to time Speech: speech normal Motor Exam: strength 5/5 throughout Psych affect normal Psych Narrative: Very pleasant and appropriately interactive Weight / BMI Weight Weight: 82.3 kg Body Mass Index (BMI) 25.2 ABG / Lab / Microbiology Data Result Diagrams: 01/21/22 06:38 01/20/22 03:05 Laboratory: Laboratory Results - last 24 hr 01/20/22 03:05: Free T4 2.14 H 01/20/22 09:50: APTT 47.4 H 01/20/22 15:36: POC Glucose 147 H 01/20/22 21:07: POC Glucose 138 H 01/21/22 06:21: POC Glucose 157 H 01/21/22 06:38: WBC 9.8, RBC 4.68, Hgb 13.9, Hct 40.7, MCV 87.0, MCH 29.7, MCHC 34.2, RDW Std Deviation 44.2 H, RDW Coeff of Rubens 13.9, Plt Count 112 L, MPV 11.5, Immature Gran % (Auto) 0.600, Neut % (Auto) 48.5, Lymph % (Auto) 44.2 H, [place] % (Auto) 6.0, Eos % (Auto) 0.5, Baso % (Auto) 0.2, Absolute Neuts (auto) 4.7, Absolute Lymphs (auto) 4.33, Nucleated RBC % 0 Microbiology: Microbiology 01/19/22 21:32 Nasal Secretion SARS-CoV-2 Antigen (Rapid) - Final SARS-CoV-2 (COVID 19) 01/20/22 00:40 Mucosa - Nasopharyngeal Respiratory Panel (PCR) - Final 01/20/22 00:07 Urine, Clean Catch Legionella Antigen - Final 01/20/22 00:07 Urine, Clean Catch Streptococcus pneumoniae Antigen (M - Final Radiography Diagnostic Testing: Radiology Impression Echocardiogram 01/19/22 23:28 Interpretation Summary The estimated ejection fraction is 65-70 %. Trivial mitral valve insufficiency. Ordering Physician: Negra Cheung Performed By: Baldemar Cardona RCS D/C Instructions Discharge Diet: Low fat / Low cholesterol and 1800 Calorie Control Diet Discharge Activity: Return to Normal Activity Return to work on: 01/23/22 Meaningful Use Info Meaningful Use Diagnoses (Choose all that apply): None applicable Discharge Plan Admission Admit Date/Time: 01/19/22 21:58 Primary Reason for Your Visit: Chest pain Attending Provider: Joan Baltazar [facility] Providers: Ashwin Tovar ; Negra Cheung Instructions Additional Instructions / Restrictions: 1. Please follow-up at the [facility] within the next 3 to 6 weeks for follow-up thyroid-stimulating hormone study to reevaluate your thyroid 2. Please follow-up with cardiology within the next 2 weeks for hospital visit with diagnosed NSTEMI 4 cardiac catheterization versus noninvasive testing 3. Quarantine until 01/22/2022 and please mask around others for 5 days following that time. Discharge Orders/Prescriptions Prescriptions: Continued metformin 1,000 mg tablet 1,000 mg PO BID aspirin 81 mg tablet,delayed release (DR/EC) 81 mg PO DAILY cholecalciferol (vitamin D3) 25 mcg (1,000 unit) tablet 4,000 unit PO DAILY hydrochlorothiazide 25 MG tablet 25 mg PO DAILY clopidogrel 75 MG tablet 75 mg PO DAILY atorvastatin 80 MG tablet 80 mg PO QHS nitroglycerin 0.4 MG tablet 0.4 mg sublingual Q5M PRN (Reason: Cardiac/Chest Pain) Qty: 30 0RF metoprolol tartrate 25 MG tablet 25 mg PO BID Qty: 0 0RF levothyroxine 200 mcg capsule 200 mcg PO DAILY Qty: 30 1RF Discontinued levothyroxine 300 mcg tablet 300 mcg PO DAILY Label Comments: TAKE 1 TABLET BY MOUTH EVERY OTHER DAY Referrals / Follow Up: Luis Armando Brewer MD [Med Staff - Active Staff] - Within 2 Weeks (hospital f/u for NSTEMI-->outpt cardiac workup) [facility] [Primary Care Provider] - Within 1 Month (will need repeat thyroid testing within 6 weeks) Disposition Disposition (needs filled in before D/C Order can be placed): Home, Self Care Charges/Coding Visit Charges Inpatient E&M: 95055 Disch Hosp
[2022-01-21 10:13] VITALS: BP 109/62; PULSE 72; RESP 16; TEMP 36.9; O2SAT 95
[2022-01-21] MEDS: Clopidogrel Bisulfate 75 MG Tablet PO (10:15)
[2022-01-21 10:16] VITALS: BP 109/62; PULSE 72
[2022-01-21] MEDS: hydroCHLOROthiazide 25 MG Tablet PO (10:16)
[2022-01-21] MEDS: Aspirin E.C. 81 MG Tablet PO (10:16)
[2022-01-21] MEDS: Metoprolol Tartrate 25 MG Tablet PO (10:16)
[2022-01-21 10:31] VITALS: O2SAT 94; O2SAT 97
--- NOTE | 2022-01-21 10:34 | CASEMGMT ---
Pt has been on RA and Dr. Baltazar states no need for oxygen testing. Pt to be provided with [facility] pulse ox for discharge. Raymundo DAWSON CM
== END 2022-01-21 11:06 | disposition home or self-care (01) | DRG 280 ==
LOC: ED 21:32 → PCU 23:02
PROVIDERS: Admitting Provider Family Medicine; Emergency Provider Emergency Medicine; Visit Provider Internal Medicine
DX: I21.4 Non-ST elevation (NSTEMI) myocardial infarction (principal); U07.1 COVID-19; D69.6 Thrombocytopenia, unspecified; E11.9 Type 2 diabetes mellitus without complications; E78.5 Hyperlipidemia, unspecified; F17.210 Nicotine dependence, cigarettes, uncomplicated; I25.10 Atherosclerotic heart disease of native coronary artery without angina pectoris; E03.9 Hypothyroidism, unspecified; I10 Essential (primary) hypertension; E87.6 Hypokalemia; Z79.82 Long term (current) use of aspirin; Z79.02 Long term (current) use of antithrombotics/antiplatelets; Z95.5 Presence of coronary angioplasty implant and graft; Z82.49 Family history of ischemic heart disease and other diseases of the circulatory system; R94.6 Abnormal results of thyroid function studies
CPT/HCPCS: 36415; 71045; 71275; 80048; 80053; 80061; 82728; 82962; 83036; 83615; 83735; 83880; 84145; 84439; 84443; 84484; 85025; 85379; 85610; 85730; 86140; 87449; 87633; 87811; 93005; 93306; 94640; 99285; 99406; J7030; Q9967; A4216

== ENCOUNTER 2022-11-20 09:36 | Emergency (ER) | payer SELFPAY ==
[2022-11-20 09:36] VITALS: BP 124/77; PULSE 89; RESP 16; TEMP 36.3; O2SAT 98; BMI 27.3
[2022-11-20 09:51] VITALS: BP 119/79; PULSE 76; RESP 16; TEMP 36.7; O2SAT 95
--- NOTE | 2022-11-20 09:52 | EDS_ITS ---
HPI History of Present Illness Chief Complaint: Dental Informant: patient Onset/Context/Timing Onset: Days Context: Gradual Onset Timing: Continuous Current Severity: Moderate Maximum Severity: Moderate Associated Symptoms Assocated Symptom - Dental: Negative for fever, jaw swelling or face swelling Narrative Narrative: 57-year-old female history of coronary disease with 4 stents. She is currently on no blood thinner. Broke her right upper incisor and believes that she has an abscess now with swelling and drainage of purulent material and small amount of blood. Complaining of the pain. No fever. No jaw swelling. Currently does not have a dentist or dental insurance and is trying to get in with 1. Prior similar symptoms: No Recent Illness/Hospitalization: No PFSH PFSH Medical History Atherosclerotic heart disease of [place] coronary artery without angina pectoris Cholecystectomy planned Diabetes DM w/o complication type II Essential hypertension Hypertension Hypothyroidism Other and unspecified hyperlipidemia Smoking Home Medications hydrochlorothiazide 25 mg tablet 25 mg PO DAILY 02/28/13 [History Last Taken 08/18/18] clopidogrel 75 mg tablet 75 mg PO DAILY 05/22/18 [History Last Taken 08/18/18] atorvastatin 80 mg tablet 80 mg PO QHS 08/18/18 [History Last Taken 08/18/18] metoprolol tartrate 25 mg tablet 25 mg PO BID ##0 08/19/18 [Rx Last Taken 08/18/18] nitroglycerin 0.4 mg sublingual tablet 0.4 mg sublingual Q5M PRN Cardiac/Chest Pain #30 tabs 08/19/18 [Rx Last Taken Unknown] aspirin 81 mg tablet,delayed release 81 mg PO DAILY 10/16/19 [History Last Taken Unknown] cholecalciferol (vitamin D3) 25 mcg (1,000 unit) tablet 4,000 unit PO DAILY 10/16/19 [History Last Taken Unknown] metformin 1,000 mg tablet 1,000 mg PO BID 10/16/19 [History Last Taken Unknown] levothyroxine 200 mcg capsule 200 mcg PO DAILY #30 caps 01/21/22 [Rx Last Taken Unknown] penicillin V potassium 500 mg tablet 500 mg PO 4X/DAY #40 tabs 11/20/22 [Rx Last Taken Unknown] Allergy/AdvReac Type Severity Reaction Status Date / Time codeine Allergy Hives Verified 10/16/19 09:56 hydromorphone HCl Allergy Chest Verified 10/16/19 09:56 [From Dilaudid] tightness lisinopril Allergy Other Verified 10/16/19 09:56 tree and shrub pollen Allergy NEEDS Verified 12/20/21 16:21 FOLLOW-UP Family History Father Cancer Hodgkins Heart disease Mother Hypertension Surgical History (Updated 11/20/22 @ 09:[address] Donnie Calvillo MD) History of partial hysterectomy S/P appendectomy Stented coronary artery (~2015) Social History household members: none Smoking Status: Current every day smoker tobacco type: cigarettes alcohol intake: current alcohol intake frequency: holidays/special occasions only substance use type: does not use what type of physical activity do you participate in: other ROS ROS ED ROS Narrative Dental pain. Review of Systems ROS Unobtainable: Denies due to encephalopathy Constitutional Constitutional ED: Denies chills or fever(s) Eyes Eyes: Denies blurry vision ENT ENT ED: Denies ear pain Cardiovascular Cardiovascular: Denies chest pain Respiratory/Chest Respiratory/Chest: Denies cough or dyspnea Gastrointestinal Gastrointestinal: Denies abdominal pain Genitourinary Genitourinary ED: Denies dysuria Musculoskeletal Musculoskeletal: Denies arthralgias Integumentary Denies Abrasions Neurologic Neurologic: Denies headache(s) Psychiatric Psychiatric: Denies anxiety Endocrine Endocrinology: Denies cold intolerance Hematologic/Lymphatic Hematologic/Lymphatic: Denies easy bleeding Allergic/Immunologic Allergic/Immunologic ED: Denies mouth swelling, tongue swelling or urticaria EXAM Physical Exam Narrative Exam Narrative: 37-year-old female no acute distress. Vital signs stable afebrile. HEENT exam right upper incisor is broken off to the gumline. There is swelling of the gum consistent with an early abscess. It is already draining. Her bottom dentition otherwise is in good condition. Posterior pharynx is normal. She is having no trouble breathing or swallowing. There is no facial swelling or lip swelling. Neck nontender no lymphadenopathy. Lungs are clear. Heart regular rhythm no murmur. Abdomen soft. Otherwise exam unremarkable. Const Vital Signs: 11/20/22 09:36 Temperature 97.4 F L Temperature Source Temporal Pulse Rate 89 Respiratory Rate 16 Blood Pressure 124/77 H Blood Pressure Mean 92 Pulse Ox 98 Oxygen Delivery Method Room Air Positive well nourished and well developed; Negative for cachectic, contractures or unkempt General Appearance ED: well developed and NAD; Negative for unkempt, cachectic, contractures or pallor Nutritional Appearance: Negative for cachectic HEENT Denies other HEENT Narrative: Right upper incisor broken off at the gumline. Swelling of the gum above it. Nothing to drain at this time. No fluctuance. Negative for trauma, tenderness or other Face and Sinus: Negative for sinuses nontender Mouth ED: Yes lips normal, Yes tongue normal, Yes salivary gland normal, No mouth trauma, Yes oral and palatal mucosa abnormal and No salivary gland abnormal Mouth: lips normal, tongue normal, salivary gland normal, No mouth trauma, oral and palatal mucosa abnormal and No salivary gland abnormal Teeth and Gingiva: abnormal tooth and associated gingiva Throat: posterior oropharynx normal Eyes PERRL and EOMs intact bilaterally General Eye ED: Negative for pale conjunctiva Visual Acuity: Negative for other Neck no lymphadenopathy, supple and no JVD General: normal visual inspection Lymph Lymphatic: no lymphadenopathy noted; Negative for lymphadenopathy Chest Wall inspection of chest normal and palpation of chest normal Chest: Negative for other Resp normal respiratory effort, no retractions and clear to auscultation bilaterally Effort and Inspection: Negative for other Cardio regular rate, regular rhythm, S1 normal heart sound, S2 normal heart sound and no murmurs Jugular Venous Distention: Negative for other GI normal to inspection, nondistended, normoactive bowel sounds, non-tender, non- distended and no masses Inspection: Negative for other Bladder / Kidney Exam: No other Back/Spine no CVA tenderness General Back: Negative for CVA tenderness Cervical Spine: Negative for other Extremity normal to inspection and no joint enlargement General Extremety ED: Negative for edema General Extremity: Negative for edema Neuro oriented x3, CN's II-XII intact bilaterally, moves all extremities and no focal motor deficits Sensorium / Orientation: alert, oriented to person, oriented to place and oriented to time; Negative for orientation impaired Motor Exam: strength 5/5 throughout Psych mental status grossly normal Appearance: Negative for unkempt Attitude: No agitated Mood & Affect: Negative for depressed Skin no rashes or lesions noted and no wounds General Skin Exam: Negative for pallor MDM MDM MDM Narrative Medical decision making narrative: Patient is a fractured tooth with dental gum infection possibly abscess. Be started on Pen-Vee K 500 4 times daily for 10 days. Follow-up with a dentist soon as possible and I gave her some area dental clinics to contact. Tylenol Motrin for pain. She will be given 1 pain pill here to use at home. History & Record Review Discussion w/independent historian: Patient Discharge Plan Triage Chief Complaint: Dental ED Provider: Donnie Calvillo Dx/Rx/DC Orders Clinical Impression: Dental abscess, Stented coronary artery, Pain, dental Instructions: Dental Abscess, ED Dental Pain Prescriptions: New penicillin V potassium 500 mg tablet 500 mg PO 4X/DAY Qty: 40 0RF No Action metformin 1,000 mg tablet 1,000 mg PO BID aspirin 81 mg tablet,delayed release (DR/EC) 81 mg PO DAILY cholecalciferol (vitamin D3) 25 mcg (1,000 unit) tablet 4,000 unit PO DAILY hydrochlorothiazide 25 MG tablet 25 mg PO DAILY clopidogrel 75 MG tablet 75 mg PO DAILY atorvastatin 80 MG tablet 80 mg PO QHS nitroglycerin 0.4 MG tablet 0.4 mg sublingual Q5M PRN (Reason: Cardiac/Chest Pain) Qty: 30 0RF metoprolol tartrate 25 MG tablet 25 mg PO BID Qty: 0 0RF levothyroxine 200 mcg capsule 200 mcg PO DAILY Qty: 30 1RF Primary Care Provider: [facility] Referrals: [facility] [Primary Care Provider] - As soon as possible Activity Restrictions/Additional Instructions: Motrin and Tylenol for pain. 1 pain pill to be used at home. Penicillin VK the antibiotic 1 pill 4 times a day for 10 days. Call and follow-up with a local dentist. Try the [facility]. Also the [facility] in [place] has a dental clinic as does [facility] in [place]. Warm salt water rinses for your mouth. Disposition Disposition: Home, Self Care
[2022-11-20] MEDS: HYDROcodone Bitartrate/Apap 5/325 Tablet PO (10:15)
[2022-11-20] MEDS: Penicillin Vk 250 MG Tablet 500 MG PO (10:16)
== END 2022-11-20 10:25 | disposition home or self-care (01) ==
LOC: ED 10:05
PROVIDERS: Emergency Provider Emergency Medicine; Visit Provider Emergency Medicine
DX: K08.89 Other specified disorders of teeth and supporting structures (principal); E11.638 Type 2 diabetes mellitus with other oral complications; I25.10 Atherosclerotic heart disease of native coronary artery without angina pectoris; Z95.5 Presence of coronary angioplasty implant and graft; I10 Essential (primary) hypertension; F17.210 Nicotine dependence, cigarettes, uncomplicated; E78.5 Hyperlipidemia, unspecified; Z79.899 Other long term (current) drug therapy; Z79.02 Long term (current) use of antithrombotics/antiplatelets; Z79.82 Long term (current) use of aspirin; Z79.84 Long term (current) use of oral hypoglycemic drugs; E03.9 Hypothyroidism, unspecified; Z90.710 Acquired absence of both cervix and uterus; Z90.49 Acquired absence of other specified parts of digestive tract; K04.7 Periapical abscess without sinus
CPT/HCPCS: 99283

== ENCOUNTER 2022-12-25 09:00 | Inpatient (IN) | payer SELFPAY ==
[2022-12-25] VITALS (10 sets, daily range): BP systolic 108–159; BP diastolic 75–93; PULSE 57–74; RESP 15–18; TEMP 36.5–36.6; O2SAT 92–98; BMI 27.5; BMI 28.4
--- NOTE | 2022-12-25 09:11 | EKG12_ITS ---
Test Reason : CP Blood Pressure : / mmHG Vent. Rate : 066 BPM Atrial Rate : 066 BPM P-R Int : 212 ms QRS Dur : 100 ms QT Int : 414 ms P-R-T Axes : 031 075 072 degrees QTc Int : 434 ms Sinus rhythm with 1st degree A-V block Nonspecific ST and T wave abnormality Abnormal ECG Confirmed by BISI DELONG, KAMI ([id number]), editor news BROWN KIRKLAND ([id number]) on 12/26/2022 10:59:17 AM Referred By: ROCK Confirmed By:KAMI MATHEWS MD
--- NOTE | 2022-12-25 09:11 | ED.VIS.CHEST ---
HPI History of Present Illness Chief Complaint: Chest Pain Detail of Chief Complaint: Chest pain Informant: patient Onset/Context/Timing Current Severity: 12/04 Narrative Narrative: Patient presents to the emergency department complaint of chest pain that started initially about 5 days ago. Patient was in the [place] area at that time and she went to [facility] for evaluation of this pain. Patient states that she was started back on her Plavix but they did not admit her because they did not have room. Patient states the following day she would have chest discomfort with activity or exertion but then seem to get better. This morning she woke up around 5:30 AM and had chest discomfort that she describes as tightness that radiates into the left upper arm. She felt somewhat sweaty and nauseated. Patient does have history of 4 cardiac stents. She has history of diabetes, hypertension, cholesterol and she continues to smoke. Patient has not had a stress test or heart catheter or any type of intervention last several years. Patient denies recent long car rides or airplane travel or recent surgery. Patient currently rates her pain a 7 out of 10. PFSH PFSH Medical History Atherosclerotic heart disease of [place] coronary artery without angina pectoris Cholecystectomy planned Diabetes DM w/o complication type II Essential hypertension Hypertension Hypothyroidism Other and unspecified hyperlipidemia Smoking Home Medications hydrochlorothiazide 25 mg tablet 25 mg PO DAILY 02/28/13 [History Last Taken 12/25/22] atorvastatin 80 mg tablet 80 mg PO QHS 08/18/18 [History Last Taken 08/18/18] nitroglycerin 0.4 mg sublingual tablet 0.4 mg sublingual Q5M PRN Cardiac/Chest Pain #30 tabs 08/19/18 [Rx Last Taken Unknown] aspirin 81 mg tablet,delayed release 81 mg PO DAILY 10/16/19 [History Last Taken 12/25/22] cholecalciferol (vitamin D3) 25 mcg (1,000 unit) tablet 4,000 unit PO DAILY 10/16/19 [History Last Taken Unknown] metformin 1,000 mg tablet 1,000 mg PO BID 10/16/19 [History Last Taken Unknown] clopidogrel 75 mg tablet 75 mg PO DAILY 12/25/22 [History Last Taken 12/25/22] levothyroxine 200 mcg capsule 200 mcg PO .EVERY OTHER DAY 12/25/22 [History Last Taken Unknown] levothyroxine 300 mcg tablet 300 mcg PO .EVERY OTHER DAY 12/25/22 [History Last Taken Unknown] metoprolol tartrate 25 mg tablet 25 mg PO Q12H 12/25/22 [History Last Taken Unknown] Allergy/AdvReac Type Severity Reaction Status Date / Time codeine Allergy Hives Verified 12/25/22 09:01 hydromorphone HCl Allergy Chest Verified 12/25/22 09:01 [From Dilaudid] tightness lisinopril Allergy Other Verified 12/25/22 09:01 tree and shrub pollen Allergy NEEDS Verified 12/25/22 09:01 FOLLOW-UP Family History Father Cancer Hodgkins Heart disease Mother Hypertension Surgical History History of partial hysterectomy S/P appendectomy Stented coronary artery (~2015) Social History household members: none Smoking Status: Current every day smoker tobacco type: cigarettes alcohol intake: current alcohol intake frequency: holidays/special occasions only substance use type: does not use what type of physical activity do you participate in: other ROS ROS ED Review of Systems ROS Unobtainable: other Constitutional Constitutional ED: Reports lethargy; Denies chills, fever(s), sweats or weight loss Eyes Eyes: Denies blurry vision, change in vision or diplopia ENT ENT ED: Denies rhinorrhea or sore throat Cardiovascular Cardiovascular: Reports chest pain; Denies orthopnea or racing heartbeat Respiratory/Chest Respiratory/Chest: Reports dyspnea and dyspnea on exertion; Denies cough, orthopnea or sputum Gastrointestinal Gastrointestinal: Reports nausea; Denies abdominal pain, diarrhea or vomiting Genitourinary Genitourinary ED: Denies dysuria, hematuria or urinary frequency Musculoskeletal Musculoskeletal: Denies arthralgias, back pain, myalgias or neck pain Integumentary Denies abscess, Abrasions or rash Neurologic Neurologic: Denies headache(s) or weakness Psychiatric Psychiatric: Denies anxiety, depression or suicidal thoughts Endocrine Endocrinology: Denies polydipsia, polyphagia or polyuria Hematologic/Lymphatic Hematologic/Lymphatic: Denies easy bleeding, easy bruising or lymphadenopathy Allergic/Immunologic Allergic/Immunologic ED: Denies mouth swelling, tongue swelling or urticaria EXAM Physical Exam Const Vital Signs: 12/25/22 09:02 12/25/22 09:20 12/25/22 09:27 Temperature 97.9 F Temperature Source Temporal Pulse Rate 67 64 Respiratory Rate 15 Blood Pressure 155/93 H 159/91 H Blood Pressure Mean 113 Pulse Ox 98 97 Oxygen Delivery Method Room Air Room Air 12/25/22 09:30 Temperature Temperature Source Pulse Rate 69 Respiratory Rate 15 Blood Pressure 108/76 Blood Pressure Mean 86 Pulse Ox 92 Oxygen Delivery Method Room Air Positive well nourished and well developed General Appearance ED: well developed and NAD HEENT Reports TM's clear and moist mucous membranes normocephalic and atraumatic; Negative for trauma or tenderness Tympanic Membrane ED: Yes TM's clear Eyes PERRL and EOMs intact bilaterally General Eye ED: Negative for pale conjunctiva or scleral icterus Neck no lymphadenopathy, supple and no JVD General: Negative for tenderness Chest Wall inspection of chest normal and palpation of chest normal Chest: Negative for tenderness Resp normal respiratory effort and clear to auscultation bilaterally Effort and Inspection: Negative for respiratory distress or pain with movement Auscultation: Negative for rhonchi, wheezes or diminished lung sounds Cardio regular rate, regular rhythm, S1 normal heart sound, S2 normal heart sound and no murmurs Peripheral Pulses: pulses 2+ throughout GI normal to inspection, nondistended, normoactive bowel sounds, soft to palpation, non-tender, non-distended and no masses Back/Spine no CVA tenderness and no thoracic nor lumbar tenderness Extremity normal to inspection General Extremety ED: Negative for edema General Extremity: Negative for edema Neuro oriented x3, CN's II-XII intact bilaterally, no sensory deficits noted and gait normal Sensorium / Orientation: awake, alert, oriented to person, oriented to place and oriented to time Motor Exam: strength 5/5 throughout and strength abnormal Psych mental status grossly normal Skin no rashes or lesions noted and no wounds Heart Score History: Highly Suspicious ECG: Nonspecific Repolarization Age: >45 - <65 years Risk Factors: >/= 3 Risk Factors or History of CAD Troponin: </= Normal Limit Score: 6 MDM MDM MDM Narrative Medical decision making narrative: Patient presents with chest pain x5 days intermittently. Pain more continuous since this morning at 5:30 AM. Patient with known coronary artery disease history and current history concerning for acute coronary syndrome. IV line established on arrival. 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 EKG obtained showed a sinus rhythm with a rate of [address] changes when compared with prior EKG from January 20, 2022 there seems to be more significant T wave inversions in V1 and V2 with some subtle ST depression anterior laterally. Patient is already taken aspirin and Plavix to this morning. She will be given nitroglycerin sublingual. Lab work-up will be obtained. Patient does have an elevated white count of 20,000 which she states was elevated when she was seen in [place] as well. Patient states that a month ago she had an abscess of her right upper tooth and she still having some occasional discomfort but no fevers or other illness. Chemistries unremarkable. Troponin was normal at 34. Patient did receive nitroglycerin in the department and did help improve her pain. Patient's heart score is a 6 and will recommend admission for cardiac rule out. Lab Data Attestation: I reviewed the patient's lab results. Labs: Laboratory Results - last 24 hr 12/25/22 09:05 WBC 20.7 H RBC 5.08 Hgb 15.1 H Hct 45.8 MCV 90.2 MCH 29.7 MCHC 33.0 RDW Std Deviation 47.9 H RDW Coeff of Rubens 14.6 Plt Count 229 MPV 11.8 Immature Gran % (Auto) 0.500 Neut % (Auto) 41.9 L Lymph % (Auto) 52.5 H [place] % (Auto) 4.2 Eos % (Auto) 0.4 Baso % (Auto) 0.5 Absolute Neuts (auto) 8.7 H Absolute Lymphs (auto) 10.88 H Nucleated RBC % 0 Differential Comment SCANNED D-Dimer Quant (PE/DVT) 0.54 H* Sodium 133 L Potassium 3.7 Chloride 101 Carbon Dioxide 27.0 Anion Gap 5 BUN 19 H Creatinine 0.96 Estim Creat Clear Calc 69.92 Est GFR (MDRD) Af Amer 77 Est GFR (MDRD) Non-Af 64 BUN/Creatinine Ratio 19.8 Glucose 281 H Calcium 8.7 Troponin I High Sens 34 Radiography Diagnostic Testing: Clinical Impression(s) from Imaging Studies Chest X-Ray 12/25/22 09:35 IMPRESSION: Stable mild increased markings at the left lung base suggestive of atelectasis and/or scarring. Electronically Signed: Rex Denny MD at 10:00 EDT , 1 view chest x-ray obtained interpreted by myself as no evidence of infiltrate or pneumothorax or acute disease process. Radiology in agreement. EKG Initial EKG: Attestation: I personally reviewed and interpreted this EKG as follows: Comments: Sinus rhythm with a rate of [address] changes Discharge Plan Triage Chief Complaint: Chest Pain ED Provider: Muriel Crane Dx/Rx/DC Orders Clinical Impression: Leukocytosis, History of CAD (coronary artery disease), Chest pain Prescriptions: No Action metformin 1,000 mg tablet 1,000 mg PO BID aspirin 81 mg tablet,delayed release (DR/EC) 81 mg PO DAILY cholecalciferol (vitamin D3) 25 mcg (1,000 unit) tablet 4,000 unit PO DAILY hydrochlorothiazide 25 MG tablet 25 mg PO DAILY atorvastatin 80 MG tablet 80 mg PO QHS nitroglycerin 0.4 MG tablet 0.4 mg sublingual Q5M PRN (Reason: Cardiac/Chest Pain) Qty: 30 0RF clopidogrel 75 mg tablet 75 mg PO DAILY Patient Comments: TAKE 1 TABLET BY MOUTH ONCE DAILY metoprolol tartrate 25 mg tablet 25 mg PO Q12H Patient Comments: TAKE 1 TABLET BY MOUTH TWICE DAILY levothyroxine 300 mcg tablet 300 mcg PO .EVERY OTHER DAY Patient Comments: TAKE 1 TABLET BY MOUTH EVERY OTHER DAY levothyroxine 200 mcg capsule 200 mcg PO .EVERY OTHER DAY Primary Care Provider: [facility] Ivory Jasso Referrals: [facility] Ivory Jasso [Primary Care Provider] - Disposition Disposition: Acute Care Hospital [facility]
[2022-12-25 09:20] LABS: Absolute Lymphocyte Count 10.88 X10^3/uL (0.83-4.51); Absolute Neutrophil Count 8.7 X10^3/uL (2.0-7.7); Basophil# 0.11 X10^3/uL; Basophil% 0.5 % (0-1); Eosinophil# 0.09 X10^3/uL; Eosinophils% 0.4 % (0-5); Hematocrit 45.8 % (37-47); Hemoglobin 15.1 g/dL (12.0-15.0); Lymphocyte # 10.88 X10^3/ul (0.83-4.51); Lymphocyte % 52.5 % (19-41); Mean Corpuscular Hgb 29.7 pg (27.0-32.0); Mean Corpuscular Volume 90.2 fL (81-99); Mean Platelet Vol. 11.8 fl (6.2-12.0); Monocyte# 0.87 X10^3/uL; Monocyte% 4.2 % (0-10); NRBC Flagged by Analyzer 0 % (0-5); Neutrophil # 8.66 X10^3/uL (2.7-7.7); Neutrophil % 41.9 % (47-70); POSITIVE DIFFERENTIAL YES; Platelet Count 229 K/mm3 (150-450); RBC Distribution Width CV 14.6 % (11.6-14.6); RBC Distribution Width SD 47.9 fl (35.1-43.9); Red Blood Count 5.08 M/mm3 (4.2-5.4); White Blood Count 20.7 K/mm3 (4.4-11.0)
[2022-12-25] MEDS: 0.9% Normal Saline 1,000 ML 150 ML IV ×3 (09:26→18:23)
[2022-12-25] MEDS: Nitroglycerin SL (ED/IMG/CATH) 0.4 MG TABLET SL (09:27)
[2022-12-25 09:31] LABS: Differential Indicated SCAN CRITERIA MET
--- NOTE | 2022-12-25 09:35 | RAD_ITS ---
STUDY: X-RAY CHEST REASON FOR EXAM: Female, 57 years old. Chest pain TECHNIQUE: Single AP portable view of the chest. COMPARISON: Comparison is made with prior study dated January 19, 2022. FINDINGS: EKG electrodes are seen. Stable mild increased markings at the left lung base suggestive of left basilar atelectasis and/or scarring. There is no demonstrated pleural abnormality. Normal size heart. Normal mediastinum and regis. Normal visualized pulmonary arteries. There is atherosclerotic tortuosity of the aortic arch and descending thoracic aorta. There are diffuse degenerative changes of the visualized thoracic spine. Normal visualized ribs, clavicles, and shoulders. There is no demonstrated abnormality of the visualized soft tissue structures of the upper abdomen. RAD/Chest 1 View (Portable) IMPRESSION: Stable mild increased markings at the left lung base suggestive of atelectasis and/or scarring. Electronically Signed: Rex Denny MD at 10:00 EDT ,
[2022-12-25 09:39] LABS: Anion Gap 5 (5-15); BUN 19 mg/dL (7-18); BUN/Creat Ratio 19.8 RATIO (10-20); Calcium,Total 8.7 mg/dL (8.5-10.1); Chloride 101 mmol/L (98-107); Creatinine, Serum 0.96 mg/dL (0.55-1.02); EST Glomerular Filtration Rate 64 mL/min (>60); Est Glom Filt Rate - Afr Amer 77 mL/min (>60); Estimated Creatinine Clearance 69.92 ml/min; Glucose 281 mg/dL (74-106); Potassium 3.7 mmol/L (3.5-5.1); Sodium Level 133 mmol/L (136-145); Troponin-I HS (w/2H Reflex) 34 pg/mL (3.0-54.0)
[2022-12-25 09:47] LABS: D-Dimer Quantitative (DVT/PE) 0.54 FEU/ug/m (0.27-0.49)
[2022-12-25 09:57] LABS: Differential Comment SCANNED
--- NOTE | 2022-12-25 10:48 | NURSING ---
DR GARCIA WILKERSON
--- NOTE | 2022-12-25 11:01 | NURSING ---
PCU OBS ZELAYA CHEST PAIN
[2022-12-25 11:17] LABS: Reflex Troponin-HS? (from REC) Y
--- NOTE | 2022-12-25 11:25 | HP.PCM.HOS_ITS ---
HPI - General General Date of Admission: 12/25/22 Date of Service: 12/25/22 Chief Complaint: CP HPI Narrative EMERITA COOLEY, is a 57 F with a history of coronary artery disease disease with 4 stents, thyroid cancer status post radiation now on replacement, skin cancer, tobacco use, diabetes, depression and anxiety who presented to [facility] 12/25/2022 with chest pain. She reports initially last Sunday she was having chest pain and she presented to [facility] where she was started on Plavix and discharged home. She felt fine for several days until this morning at 5:30 AM when she began to have chest pain on exertion with associated shortness of breath, fatigue, sweating and felt she is alternating between sweating and chills. She presented to the ED and had nonspecific ST changes on EKG and troponin of 30 on initial check. Pain was improved by nitroglycerin. Given present complaints in addition to her history hospitalist consulted for admission for chest pain rule out. Patient confirmed the episode of chest pain on Sunday and then this morning as above. Still has faint chest pain but significantly improved after the nitroglycerin but still does not feel well overall. She reports she has no insurance and has not seen a developer [employer]ver [employer]holst[employer] recently, last stent was in 2019. At time of exam denies any shortness of breath, has a slight chronic cough she smokes half a pack per day, has chronic neuropathy, did note 40 pound weight gain recently once her Synthroid was changed. It was also noted she had a white blood cell count of 20.7. Denies any present fevers or chills or other infectious signs or symptoms. Did have an abscessed tooth on the upper right that was treated with 14 days of penicillin she reports is no longer swollen or bothering her. No other infectious signs or symptoms reported. [facility] Medical History Atherosclerotic heart disease of [place] coronary artery without angina pectoris Cholecystectomy planned Diabetes DM w/o complication type II Essential hypertension Hypertension Hypothyroidism Other and unspecified hyperlipidemia Smoking Home Medications hydrochlorothiazide 25 mg tablet 25 mg PO DAILY 02/28/13 [History Last Taken 12/25/22] atorvastatin 80 mg tablet 80 mg PO QHS 08/18/18 [History Last Taken 12/24/22] nitroglycerin 0.4 mg sublingual tablet 0.4 mg sublingual Q5M PRN Cardiac/Chest Pain #30 tabs 08/19/18 [Rx Last Taken 12/20/22] aspirin 81 mg tablet,delayed release 81 mg PO DAILY 10/16/19 [History Last Taken 12/25/22] cholecalciferol (vitamin D3) 25 mcg (1,000 unit) tablet 4,000 unit PO DAILY 10/16/19 [History Last Taken 12/24/22] metformin 1,000 mg tablet 1,000 mg PO BID 10/16/19 [History Last Taken 12/25/22] acetaminophen 500 mg tablet 1,000 mg PO Q8H PRN PRN pain 12/25/22 [History Last Taken 12/18/22] clopidogrel 75 mg tablet 75 mg PO DAILY 12/25/22 [History Last Taken 12/25/22] levothyroxine 200 mcg tablet 200 mcg PO DAILY THYROID 12/25/22 [History Last Taken 12/25/22] levothyroxine 300 mcg tablet 300 mcg PO .EVERY OTHER DAY 12/25/22 [History Last Taken Unknown] metoprolol tartrate 25 mg tablet 25 mg PO Q12H 12/25/22 [History Last Taken ] Allergy/AdvReac Type Severity Reaction Status Date / Time codeine Allergy Hives Verified 12/25/22 09:01 hydromorphone HCl Allergy Chest Verified 12/25/22 09:01 [From Dilaudid] tightness lisinopril Allergy Other Verified 12/25/22 09:01 tree and shrub pollen Allergy NEEDS Verified 12/25/22 09:01 FOLLOW-UP Family History Father Cancer Hodgkins Heart disease Mother Hypertension Surgical History History of partial hysterectomy S/P appendectomy Stented coronary artery (~2015) Social History household members: none Smoking Status: Current every day smoker tobacco type: cigarettes alcohol intake: current alcohol intake frequency: holidays/special occasions only substance use type: does not use what type of physical activity do you participate in: other ROS ROS Narrative General: Denies fever/chills HENT: Denies headache, denies stuffy nose, denies sore throat EYES: Denies changes in vision Resp: Chronic cough, denies shortness of breath Cardiac: Had left-sided chest pain, improved with nitro GI: Denies abdominal pain, denies changes in bowel, denies nausea/vomiting : Denies changes in urination Extremity: Denies swelling MSK: Denies weakness Neuro: Chronic neuropathy Heme: Denies any bleeding or bruising Skin: Denies rashes Psychiatric: No complaints voiced Vital Signs Vital Signs Vital Signs: 12/25/22 09:02 12/25/22 09:20 12/25/22 09:27 Temperature 97.9 F Temperature Source Temporal Pulse Rate 67 64 Respiratory Rate 15 Blood Pressure 155/93 H 159/91 H Blood Pressure Mean 113 Pulse Ox 98 97 Oxygen Delivery Method Room Air Room Air 12/25/22 09:30 12/25/22 10:29 Temperature Temperature Source Pulse Rate 69 63 Respiratory Rate 15 16 Blood Pressure 108/76 113/79 Blood Pressure Mean 86 90 Pulse Ox 92 96 Oxygen Delivery Method Room Air Room Air Weight Weight: 87.09 kg Body Mass Index (BMI) 27.5 Physical Exam Narrative General: Alert, oriented, no apparent distress HEENT: Atraumatic, normocephalic, has an upper right tooth that is broken off towards the root without any active drainage, no erythema Eyes: Anicteric, normal conjunctiva, extraocular movements grossly intact Neck: Supple Respiratory: Clear to auscultation bilaterally, normal respiratory effort Cardiovascular: Regular rate and rhythm GI: Soft, nontender, nondistended Extremities: No edema Musculoskeletal: Moving all extremities Neuro: No overt focal neurological deficits Skin: No rashes appreciated Psych: Cooperative Results Lab / Micro Data 12/25/22 09:05 12/25/22 09:05 Labs: Laboratory Results - last 24 hr 12/25/22 09:05: WBC 20.7 H, RBC 5.08, Hgb 15.1 H, Hct 45.8, MCV 90.2, MCH 29.7, MCHC 33.0, RDW Std Deviation 47.9 H, RDW Coeff of [place] 14.6, Plt Count 229, MPV 11.8, Immature Gran % (Auto) 0.500, Neut % (Auto) 41.9 L, Lymph % (Auto) 52.5 H, [place] % (Auto) 4.2, Eos % (Auto) 0.4, Baso % (Auto) 0.5, Absolute Neuts (auto) 8. 7 H, Absolute Lymphs (auto) 10.88 H, Nucleated RBC % 0, Differential Comment SCANNED, D-Dimer Quant (PE/DVT) 0.54 H*, Sodium 133 L, Potassium 3.7, Chloride 101, Carbon Dioxide 27.0, Anion Gap 5, BUN 19 H, Creatinine 0.96, Estim Creat Clear Calc 69.92, Est GFR (MDRD) Af Amer 77, Est GFR (MDRD) Non-Af 64, BUN/Creatinine Ratio 19.8, Glucose 281 H, Calcium 8.7, Troponin I High Sens 34 Radiology Impression Chest X-Ray 12/25/22 09:35 IMPRESSION: Stable mild increased markings at the left lung base suggestive of atelectasis and/or scarring. Electronically Signed: Rex Denny MD at 10:00 EDT Reading Location ID and State: [address] [place] [address] , Service support , Assessment & Plan Assessment/Plan (1) Chest pain: QUALIFIERS: Chest pain type: chest pain due to myocardial ischemia Qualified Code(s): I20.9 - Angina pectoris, unspecified (2) Atherosclerotic heart disease of [place] coronary artery without angina pectoris: PLAN: Plan #Chest pain -Given pain that is improved with nitroglycerin and rest and worsened on exertion with a heart score of 6 and a NIKKI score of 3 with nonspecific EKG changes and history of coronary artery disease suspect this is unstable angina -Aspirin, statin, will start on heparin drip -Consult cardiology -Continue to trend troponins #History of thyroid cancer status post radiation on replacement -Check TSH and free T4, continue Synthroid #Leukocytosis -Suspect reactive, no present infectious signs or symptoms, will trend #Type 2 diabetes mellitus -Glucose checks and sliding scale insulin #Tobacco use -Advise cessation -Patient refused nicotine replacement #DVT ppx: Heparin drip Loni Abdi MD Time spent in the patient's overall evaluation,decision-making process, review of diagnostic data, adjustment of management, discussion with other providers, nursing nursing and ancillary staff involved in patient's care documentation, 56 minutes
--- NOTE | 2022-12-25 11:32 | ED.RN ---
pt did not get nitro paste applied prior to PCU. called RN on PCU to inform.
[2022-12-25 11:46] LABS: Troponin-I HS 41 pg/mL (3.0-54.0)
--- NOTE | 2022-12-25 11:54 | ECHOD_ITS ---
Reason For Study: Chest pain Procedure This was a 2D Doppler, Color Flow transthoracic echocardiogram. Exam performed portable in patient room. Left Ventricle Normal LV size. The estimated ejection fraction is 60 %. Normal diastology for age. No regional wall motion abnormalities noted. Right Ventricle Normal RV size. Normal systolic function. Atria Normal left atrium. Normal right atrium. No doppler evidence for ASD. Mitral Valve There is no mitral valve stenosis. Mild-Moderate (1-2+) mitral valve insufficiency. Tricuspid Valve There is no tricuspid stenosis. Trivial tricuspid valve insufficiency. Unable to estimate RV systolic pressure due to insufficient tricuspid regurgitant envelope. Aortic Valve Aortic sclerosis, no stenosis. There is no aortic stenosis. No aortic valve insufficiency. Pulmonic Valve There is no pulmonic valvular stenosis. No pulmonic valve insufficiency. Great Vessels Normal aortic root. Pericardium/Pleural Trivial pericardial effusion. MMode/2D Measurements & Calculations LVIDd: 4.0 cm IVSd: 1.2 cm Ao root diam: 4.0 cm LVIDs: 2.5 cm LVPWd: 1.0 cm RVDd: 3.0 cm FS: 38.0 % LAV(MOD-bp): 40.7 ml LVAd ap4: 30.2 cm2 LVAd ap2: 26.3 cm2 LAV(MOD-bp) Indexed: 19.6 ml/m2 LVLd ap4: 8.8 cm LVLd ap2: 8.7 cm LAV(MOD-sp2): 43.7 ml EDV(MOD-sp4): 87.3 ml EDV(MOD-sp2): 66.2 ml LAV(MOD-sp4): 36.1 ml EDV(sp4-el): 87.9 ml EDV(sp2-el): 67.6 ml LVAs ap4: 17.0 cm2 LVAs ap2: 14.6 cm2 LVLs ap4: 7.8 cm LVLs ap2: 7.6 cm ESV(MOD-sp4): 31.7 ml ESV(MOD-sp2): 24.2 ml ESV(sp4-el): 31.2 ml ESV(sp2-el): 23.5 ml EF(MOD-sp4): 63.7 % EF(MOD-sp2): 63.5 % EF(sp4-el): 64.5 % SV(MOD-sp4): 55.6 ml SV(MOD-sp2): 42.0 ml SV(sp4-el): 56.7 ml LA dimension(2D): 4.0 cm LA A4 area: 14.2 cm2 RA A4 area: 12.5 cm2 TAPSE: 1.7 cm Time Measurements MV dec time: 0.21 sec Doppler Measurements & Calculations MV E max deven: 74.7 cm/sec Lat Peak E' Deven: 7.4 cm/sec Med Peak E' Deven: 5.2 cm/sec MV A max deven: 67.7 cm/sec E/E' lat: 10.1 E/E' med: 14.3 MV E/A: 1.1 MV dec slope: 362.1 cm/sec2 Ao V2 max: 117.9 cm/sec LV V1 max: 81.1 cm/sec Ao max P.6 mmHg LV V1 max P.6 mmHg LV V1 mean P.6 mmHg LV V1 mean: 59.6 cm/sec LV V1 VTI: 19.1 cm PA V2 max: 63.6 cm/sec ECHO/Echo Complete Interpretation Summary The estimated ejection fraction is 60 %. Mild-Moderate (1-2+) mitral valve insufficiency. Trivial pericardial effusion. Ordering Physician: Loni Abdi Performed By: Mery Vazquez RDCS
[2022-12-25 12:41] LABS: Prothrombin Time (Protime)PT. 12.8 SECONDS (11.7-14.9)
[2022-12-25 12:42] LABS: Partial Thromboplast Time 31.5 Seconds (24.1-36.2)
[2022-12-25] MEDS: HEPARIN/D5w 25,000 UNITS 25,000 UNITS/250 ML IV.SOLN. 10 UNITS CONT INF (13:04)
[2022-12-25] MEDS: Heparin Injection (Vial) 5,000 UNIT/ML VIAL 4000 UNIT IV (13:05)
--- NOTE | 2022-12-25 13:59 | EKG12_ITS ---
Test Reason : CP/ADMIT Blood Pressure : / mmHG Vent. Rate : 058 BPM Atrial Rate : 058 BPM P-R Int : 218 ms QRS Dur : 088 ms QT Int : 430 ms P-R-T Axes : 035 070 075 degrees QTc Int : 422 ms Sinus bradycardia with 1st degree A-V block Nonspecific T wave abnormality Abnormal ECG When compared with ECG of 25-DEC-2022 08:59, MANUAL COMPARISON REQUIRED, DATA IS UNCONFIRMED Confirmed by BOB DELONG, TIKI ([id number]), non linear editor BROWN KIRKLAND ([id number]) on 12/28/2022 9:02:19 AM Referred By: GARCIA Confirmed By:RONNIE ROJAS MD
[2022-12-25] MEDS: Nitroglycerin Oint 1 INCH PACKET TD (14:01)
--- NOTE | 2022-12-25 15:07 | CT_ITS ---
STUDY: CTA Chest WO/W Contrast Injection 12/25/2022 4:49 PM REASON FOR EXAM: Female, 57 years old. r/o PE TECHNIQUE: The examination was performed with the intravenous administration of IV 100mL Isovue-370 contrast material. Post-processing of the angiographic images was performed, with axial imaging and 3D reconstruction. MIPS images were obtained. Individualized dose optimization techniques were used for this CT. COMPARISON: None. FINDINGS: There are degenerative changes of the shoulders. There is no pneumothorax. There is no demonstrated pleural abnormality. There are calcifications of the coronary arteries. Normal mediastinum. Normal hilar regions. Normal pulmonary arteries. There is atherosclerotic calcification of the aortic arch with tortuosity and elongation of the aortic arch and descending thoracic aorta. There are multi-level degenerative changes of the thoracic spine. There are no acute findings of the upper abdomen. CT/CTA Chest W/WO Contrast IMPRESSION: No demonstrated pulmonary embolism or arterial dissection. There are calcifications of the coronary arteries. Electronically Signed: Geovanny Gore MD at 16:51 EDT ,
--- NOTE | 2022-12-25 15:15 | PCM.CONS.C ---
Assessment & Plan Assessment/Plan (1) Chest pain: QUALIFIERS: Chest pain type: unspecified Qualified Code(s): R07.9 - Chest pain, unspecified PLAN: This is concerning for unstable angina. It is reasonable to proceed with coronary angiography. Patient's D-dimer is elevated. Please check CT of the chest to rule out PE. Patient understands the risks and benefits and wishes to proceed. HPI Consult Data Date of Consult: 12/25/22 HPI Narrative Reason for Consultation: Chest pain HPI Narrative: EMERITA COOLEY, is a 57 F who presents with chest pain. Patient has history of coronary artery disease status post stents. About 1 year back she had COVID pneumonia and was found to have elevated troponin and was treated medically for this. PFSH Medical History Atherosclerotic heart disease of [place] coronary artery without angina pectoris Cholecystectomy planned Diabetes DM w/o complication type II Essential hypertension Hypertension Hypothyroidism Other and unspecified hyperlipidemia Smoking Home Medications hydrochlorothiazide 25 mg tablet 25 mg PO DAILY 02/28/13 [History Last Taken 12/25/22] atorvastatin 80 mg tablet 80 mg PO QHS 08/18/18 [History Last Taken 12/24/22] nitroglycerin 0.4 mg sublingual tablet 0.4 mg sublingual Q5M PRN Cardiac/Chest Pain #30 tabs 08/19/18 [Rx Last Taken 12/20/22] aspirin 81 mg tablet,delayed release 81 mg PO DAILY 10/16/19 [History Last Taken 12/25/22] cholecalciferol (vitamin D3) 25 mcg (1,000 unit) tablet 4,000 unit PO DAILY 10/16/19 [History Last Taken 12/24/22] metformin 1,000 mg tablet 1,000 mg PO BID 10/16/19 [History Last Taken 12/25/22] acetaminophen 500 mg tablet 1,000 mg PO Q8H PRN PRN pain 12/25/22 [History Last Taken 12/18/22] clopidogrel 75 mg tablet 75 mg PO DAILY 12/25/22 [History Last Taken 12/25/22] levothyroxine 200 mcg tablet 200 mcg PO DAILY THYROID 12/25/22 [History Last Taken 12/25/22] levothyroxine 300 mcg tablet 300 mcg PO .EVERY OTHER DAY 12/25/22 [History Last Taken Unknown] metoprolol tartrate 25 mg tablet 25 mg PO Q12H 12/25/22 [History Last Taken 12/25/22] Allergy/AdvReac Type Severity Reaction Status Date / Time codeine Allergy Hives Verified 12/25/22 09:01 hydromorphone HCl Allergy Chest Verified 12/25/22 09:01 [From Dilaudid] tightness lisinopril Allergy Other Verified 12/25/22 09:01 tree and shrub pollen Allergy NEEDS Verified 12/25/22 09:01 FOLLOW-UP Family History Father Cancer Hodgkins Heart disease Mother Hypertension Surgical History History of partial hysterectomy S/P appendectomy Stented coronary artery (~2015) Social History household members: none Smoking Status: Current every day smoker tobacco type: cigarettes alcohol intake: current alcohol intake frequency: holidays/special occasions only substance use type: does not use what type of physical activity do you participate in: other Physical Exam Const alert and oriented x3 HEENT normocephalic Eyes no scleral icterus Resp normal respiratory effort Cardio regular rate Psych mental status grossly normal Risk Stratification Risk Stratification Applicable: No Charges/Coding Visit Charges Inpatient E&M: 87756 Init Hosp L2 Objective Data Vital Signs: Vital Signs Temp Pulse Resp BP Pulse Ox O2 Del Method 97.7 F L 57 L 15 122/78 H 97 Room Air 12/25/22 12:09 12/25/22 12:09 12/25/22 12:09 12/25/22 12:09 12/25/22 12:09 12/25/22 12:09 Oxygen Delivery Method Room Air Weight: 197 lb 15.602 oz Body Mass Index (BMI) 28.4 Intake & Output: Intake and Output for Last 24 Hours 12/23/22 12/24/22 12/25/22 23:59 23:59 23:59 Intake Total 425 / 425 Balance 425 / 425 Lab / Micro Data 12/25/22 09:05 12/25/22 09:05 Labs: Laboratory Results - last 24 hr 12/25/22 09:05: WBC 20.7 H, RBC 5.08, Hgb 15.1 H, Hct 45.8, MCV 90.2, MCH 29.7, MCHC 33.0, RDW Std Deviation 47.9 H, RDW Coeff of Rubens 14.6, Plt Count 229, MPV 11.8, Immature Gran % (Auto) 0.500, Neut % (Auto) 41.9 L, Lymph % (Auto) 52.5 H, [facility] % (Auto) 4.2, Eos % (Auto) 0.4, Baso % (Auto) 0.5, Absolute Neuts (auto) 8.7 H, Absolute Lymphs (auto) 10.88 H, Nucleated RBC % 0, Differential Comment SCANNED, PT 12.8, INR 1.0, APTT 31.5, D-Dimer Quant (PE/DVT) 0.54 H*, Sodium 133 L, Potassium 3.7, Chloride 101, Carbon Dioxide 27.0, Anion Gap 5, BUN 19 H, Creatinine 0.96, Estim Creat Clear Calc 69.92, Est GFR (MDRD) Af Amer 77, Est GFR (MDRD) Non-Af 64, BUN/Creatinine Ratio 19.8, Glucose 281 H, Calcium 8.7, Troponin I High Sens 34 12/25/22 11:25: Troponin I High Sens 41 Cardiology Labs/Tests 12/25/22 09:05: WBC 20.7 H, RBC 5.08, Hgb 15.1 H, Hct 45.8, MCV 90.2, MCH 29.7, MCHC 33.0, Plt Count 229, MPV 11.8, Immature Gran % (Auto) 0.500, Neut % (Auto) 41.9 L, Lymph % (Auto) 52.5 H, [facility] % (Auto) 4.2, Eos % (Auto) 0.4, Baso % (Auto) 0.5, Absolute Neuts (auto) 8.7 H, Nucleated RBC % 0, PT 12.8, INR 1.0, APTT 31.5, D-Dimer Quant (PE/DVT) 0.54 H*, Sodium 133 L, Potassium 3.7, Chloride 101, Carbon Dioxide 27.0, Anion Gap 5, BUN 19 H, Creatinine 0.96, Est GFR (MDRD) Af Amer 77, Est GFR (MDRD) Non-Af 64, BUN/Creatinine Ratio 19.8, Glucose 281 H, Calcium 8.7 Rhythm: EKG: ECHO: Stress Test: Cardiac Cath: PCI: CT Surgery: Holter monitor: EPS: PPM: CXR: Chest CT Scan: Radiography Diagnostic Testing: Radiology Impression Chest X-Ray 12/25/22 09:35 IMPRESSION: Stable mild increased markings at the left lung base suggestive of atelectasis and/or scarring. Electronically Signed: Rex Denny MD at 10:00 EDT ,
--- NOTE | 2022-12-25 15:25 | CHAPLAIN ---
Type of Pastoral Visit _x__ Initial Visit ___ Follow-up Visit ___ On-call Visit ___ General Patient Visit ___ Spiritual Assessment ___ Family Conference ___ Bereavement ___ Rapid Response ___ Code Blue ___ Other (describe below) Pastoral Care Referral From _x__ Patient ___ Family ___ Nurse ___ Physician ___ Machine Or Machinery Mechanic ___ Vine Fruit Farming Supervisor ___ Other (describe below) Sacrament/Intervention _x__ Active listening ___ Anointing ___ Taoism ___ Bereavement ___ Communion ___ Amada exploration ___ ___ Life review _x__ Prayer ___ Reconciliation ___ Sacrament of Sick _x__ Supportive presence ___ Wedding ___ Other (describe below) Pastoral Comments patient reviews some health history; son is with her; pt states that she accepts this health situation due to past history and family genetics; pt is awaiting answers on what is coming next; pt states that she welcomes a prayer but has no other needs at this moment;
[2022-12-25 16:32] LABS: Bedside Glucose 142 mg/dL (74-106)
[2022-12-25 19:36] LABS: Partial Thromboplast Time 42.7 Seconds (24.1-36.2)
[2022-12-25] MEDS: Acetaminophen 325 MG Tablet 650 MG PO (21:10)
[2022-12-25 22:21] LABS: Bedside Glucose 215 mg/dL (74-106)
[2022-12-25] MEDS: Metoprolol Tartrate 25 MG Tablet PO (22:55)
[2022-12-25] MEDS: Atorvastatin Calcium 40 MG Tablet 80 MG PO (23:35)
[2022-12-25] MEDS: Insulin Lispro 100 UNIT/ML INSULN.PEN SC (23:36)
[2022-12-26] VITALS (13 sets, daily range): BP systolic 119–154; BP diastolic 76–88; PULSE 57–74; RESP 14–18; TEMP 36.6–36.9; O2SAT 93–98
[2022-12-26] MEDS: 0.9% Normal Saline 1,000 ML 150 ML IV ×2 (00:46→07:58)
[2022-12-26 06:06] LABS: Hematocrit 39.1 % (37-47); Hemoglobin 12.8 g/dL (12.0-15.0); Mean Corp Hgb Conc 32.7 g/dL (32-36); Mean Corpuscular Hgb 29.2 pg (27.0-32.0); Mean Corpuscular Volume 89.3 fL (81-99); Mean Platelet Vol. 11.9 fl (6.2-12.0); Platelet Count 170 K/mm3 (150-450); RBC Distribution Width CV 14.6 % (11.6-14.6); RBC Distribution Width SD 47.3 fl (35.1-43.9); Red Blood Count 4.38 M/mm3 (4.2-5.4); White Blood Count 12.7 K/mm3 (4.4-11.0)
[2022-12-26] MEDS: Levothyroxine 100 MCG Tablet 200 MCG PO (06:16)
[2022-12-26] MEDS: Insulin Lispro 100 UNIT/ML INSULN.PEN SC ×3 (06:17→21:21)
[2022-12-26 06:28] LABS: Bedside Glucose 215 mg/dL (74-106)
[2022-12-26 06:54] LABS: ALB/GLOB Ratio 0.9 RATIO (0.9-2.4); AST(SGOT) 15 U/L (15-37); Alanine Aminotransfer ALT/SGPT 17 U/L (13-56); Albumin, Serum 3.1 g/dL (3.2-5.0); Alkaline Phosphatase 80 U/L (45-117); Anion Gap 5 (5-15); BUN 12 mg/dL (7-18); BUN/Creat Ratio 14.5 RATIO (10-20); Calcium,Total 8.6 mg/dL (8.5-10.1); Chloride 110 mmol/L (98-107); Cholesterol 283 mg/dL (200); Creatinine, Serum 0.83 mg/dL (0.55-1.02); EST Glomerular Filtration Rate 75 mL/min (>60); Est Glom Filt Rate - Afr Amer 91 mL/min (>60); Estimated Creatinine Clearance 80.87 ml/min; Globulin 3.5 g/dL (2.2-4.2); Glucose 207 mg/dL (74-106); High Density Lipoprotein 24 mg/dL; Magnesium 1.7 mg/dL (1.6-2.6); Potassium 3.4 mmol/L (3.5-5.1); Protein, Total 6.6 g/dL (6.4-8.2); Sodium Level 138 mmol/L (136-145); T4 Free Direct 0.73 ng/dL (0.76-1.46); Triglycerides 495 mg/dL
[2022-12-26 08:11] LABS: Partial Thromboplast Time 39.6 Seconds (24.1-36.2)
[2022-12-26] MEDS: Metoprolol Tartrate 25 MG Tablet PO ×2 (08:12→21:25)
[2022-12-26] MEDS: Aspirin E.C. 81 MG Tablet PO (08:12)
[2022-12-26 08:56] LABS: Hemoglobin A1c 9.5 % (3.8-5.6)
[2022-12-26] MEDS: Potassium Chloride Oral Tablet 20 MEQ 40 MEQ PO (09:25)
[2022-12-26 11:45] LABS: Bedside Glucose 207 mg/dL (74-106)
--- NOTE | 2022-12-26 12:12 | EKG12_ITS ---
Test Reason : PCI Blood Pressure : / mmHG Vent. Rate : 060 BPM Atrial Rate : 060 BPM P-R Int : 214 ms QRS Dur : 090 ms QT Int : 432 ms P-R-T Axes : 037 070 057 degrees QTc Int : 432 ms Sinus rhythm with 1st degree A-V block Otherwise normal ECG When compared with ECG of 25-DEC-2022 14:06, MANUAL COMPARISON REQUIRED, DATA IS UNCONFIRMED Confirmed by BOB DELONG, TIKI ([id number]), videotape editor BROWN KIRKLAND ([id number]) on 12/29/2022 1:39:26 PM Referred By: GARCIA Confirmed By:RONNIE ROJAS MD
--- NOTE | 2022-12-26 12:13 | CL.I_ITS ---
Patient Name: EMERITA COOLEY Study Date: 12/26/2022 Performing: Frederic Tovar MD Ht: 70 inches 177.8 cm : 1965 Wt: 198.2 lbs 89.8 kg Age: 57 Gender: female BSA: 2.08 PROCEDURE(S) PERFORMED DC02-(60913)LHC/COR IC12-(12181/C9600)ROBERTO W/WO PTCA, SINGLE CORONARY ARTERY CLINICAL PROFILE AND CO-MORBIDITIES Indications: ACS <= 24 hrs Heart Failure: None Stress/Imaging Stress/Image Study Performed: No CAD Presentations: Unstable angina. CONCLUSIONS Successful drug-eluting stent placement to mid RCA and proximal RPL RECOMMENDATIONS DESCRIPTION OF PROCEDURE The patient arrived to the procedure lab. The risks and benefits of the procedure as well as a full description of our services here and lack of surgical backup were fully explained to the patient and/or their significant other prior to the catheterization. The Timeout was completed, verifying the correct patient and procedure. The patient's procedural site was prepped and draped in the usual fashion. Local anesthetic was given subcutaneously to right radial region with Lidocaine 2%. Using a modified Seldinger technique, arterial access was obtained via the right radial artery, a 6Fr sheath was inserted.. Left Coronary Artery selective angiography was performed in multiple views using a 5 Fr. JL3.5 catheter. LV to AO pullback pressures were then recorded. Right Coronary Artery selective angiography was then performed in multiple views using a 5 Fr. JR 4 catheterThe images were reviewed and options discussed. A decision was then made to proceed with an Intervention, IVUS or other adjunct procedure. ar1 Guide catheter was inserted and engaged into the LCA. bmw Guide wire was advanced to the RCA. PTCA balloon inflated at 6 atms for 13 secs. PTCA balloon inflated at 8 atms for 13 secs. emerge 2.25 x 12 Balloon catheter was advanced across lesion in the right coronary, mid. PTCA balloon inflated at 12 atms for 29 secs. Angiogram performed post balloon dilatation. resolute 2.25 x 18 Drug Eluting stent was advanced across the lesion in the posterior lateral segment prox Angiogram performed post stent deployment. resolute 3.5 x 15 Drug Eluting stent was advanced across the lesion in the right coronary, mid. Angiogram performed post stent deployment. The arterial sheath was pulled and a TR Band was applied for hemostasis CORONARY ANGIOGRAPHY DOMINANCE: Right Dominant LEFT MAIN: Mild luminal irregularities LEFT ANTERIOR DESCENDING ARTERY: Mild luminal irregularities, Patent stents in the proximal and mid LAD CIRCUMFLEX ARTERY: Chronically occluded in the proximal portion. In-stent restenosis. Faint collateral filling of the obtuse marginal system. RIGHT CORONARY ARTERY: 99% mid stenosis, 90% stenosis in the proximal RPL INTERVENTION INFORMATION LESION SITE: RPL (1st) Lesion Complexity: High/C, chronic total occlusion: No, lesion at bifurcation: Yes, thrombus present: No, lesion length: 15 mm, culprit lesion: Yes, Previously treated lesion: No Pre Stenosis: 90 % Pre intervention NIKKI flow: 3 PROCEDURE: Drug Eluting Stent with pre dilatation. Post Stenosis: 0 % Post intervention NIKKI flow: 3 Lesion Devices: Huff .014 190cm BMW [place] Straight Cordis 6 Fr AR1 100cm Guide Catheter [employer] Solutions 6 Polish GuideLiner Jony Sci EMERGE MR 2.25x12 BALLOON Medtronic Resolute Jud RX ROBERTO 2.25x18 LESION SITE: RCA (Mid) Lesion Complexity: High/C, chronic total occlusion: No, lesion at bifurcation: No, thrombus present: No, lesion length: 14 mm, culprit lesion: Yes, Previously treated lesion: No Pre Stenosis: 99 % Pre intervention NIKKI flow: 3 PROCEDURE: Drug Eluting Stent with pre dilatation. Post Stenosis: 0 % Post intervention NIKKI flow: 3 Lesion Devices: Huff .014 190cm BMW [place] Straight Cordis 6 Fr AR1 100cm Guide Catheter [employer] 6 Polish GuideLiner Jony Sci EMERGE MR 2.25x12 BALLOON Medtronic Resolute Jud RX ROBERTO 3.5x15 COMPLICATIONS No Complications PROCEDURE MEDICATIONS Versed 2 mg IV Oxygen: 2 L/min via nasal cannula Brilinta 180 mg PO @ 12/26/2022 10:24:34 Heparin given IA 12/26/2022 10:14:09 Heparin 4000 unit(s) IV 12/26/2022 10:25:38 Verapamil 2.5mg, Ntg 100mcgs, 3000 units of Heparin given IA 12/26/2022 10:14:09 SUMMARY OF HEMODYNAMIC DATA Time AIR REST ECG 09:55:06 AO 119/76 (93) SA 10:15:42 LV 114/2, 16 10:19:50 LV 139/-2, 15 10:19:56 LVp 125/-3, 10 10:20:05 AOp 137/74 (98) 10:20:10 Signed By Frederic Tovar MD On 12/26/2022 12:12:46 Frederic Tovar MD
--- NOTE | 2022-12-26 12:20 | CRPHASE1_ITS ---
Patient Communication Patient Information Former Patient:: Phase I and Phase II PHII Cardiac Rehab Discussed with Patient:: Yes Guide to Cardiac Rehab Given to Patient:: Yes Cardiac Rehab Facility Choice List Given to Patient:: Yes Communication to Cardiac Rehab Choice Program [facility] CR PHII:: Communication Given to CR Assistant Store Manager Operations:: Ashwin Tovar Refer Phase II Cardiac Rehab:: Yes Sessions:: 36 sessions - 3 days/wk, 12 weeks Cardiac Rehabilitation Info Program Information Cardiac Rehabilitation Program Information: Cardiac Rehab The cardiac rehab team at [facility] consists of highly skilled exercise physiologists, nurses, respiratory therapists and physicians working together with you. Our purpose is to help you have a full recovery and achieve the goals you set for yourself. Over the years many of our patients have returned to activities they assumed they would never do again! We can help restore your confidence and motivation to make lifestyle changes that can have a significant impact on your health and quality of life! We can help answer questions and concerns you may have about exercise, lifestyle, medications, diet, stress and anxiety which are common following a hospitaliz ation. WE monitor ECG and vital signs during exercise and discuss your progress with you and report to your physician(s). Cardiac Rehab is proven to help reduce readmissions, improve functional capacity and lower recurrence of problems with your heart. Our Cardiac Rehab program is Certified by the [place] [employer]io-Vascular and Pulmonary Rehabilitation (AACVPR) and Accredited by the [place] [employer] through our [facility]. You can contact us at . We invite you to call us with your questions or to get started in our program. If you have other questions or concerns be sure to ask your physician/provider during your follow-up visit. WE look forward to seeing you!
--- NOTE | 2022-12-26 12:20 | CRPH1.INSTRU ---
General Education Discussed with Patient CAD and cardiac anatomy and function:: Patient communicates acknowledgment Explanation of diagnoses and procedures:: Patient communicates acknowledgment Sign/Symptoms of [place]:: Patient communicates acknowledgment Antiplatelet therapy: Patient communicates acknowledgment Proper use of NTG-SL: Patient communicates acknowledgment Emergency procedures and activation of EMS: Patient communicates acknowledgment Compliance of all prescribed medications: Patient communicates acknowledgment Smoking Risk Factors Patient Nicotine/Smoking Risk Factors Are:: Cigarettes Recommendations Recommendations Include:: Smoking cessation strategies/Smoking packet and Participation in a smoking cessation program Response Code Nicotine/Smoking Response Code:: Patient communicates acknowledgment Dyslipidemia Risk Factors Patient Dyslipidemia Risk Factors Are:: Total Cholesterol, HDL and LDL Recommendations Recommendations Include:: Lipid profile provided, Reviewed NCEP/ATP guidelines and Therapeutic Lifestyle Change dietary guidelines Response Code Dyslipidemia Response Code:: Patient communicates acknowledgment Overweight/Obesity Risk Factors Patient Overweight/Obesity Risk Factors Are:: Overweight = 26-29 Recommendations Recommendations Include:: Weight loss of 5-10%, Reduced calorie diet and Exercise 5-7 times/week Response Code Overweight/Obesity:: Patient communicates acknowledgment Hypertension Recommendations Recommendations Include:: BP <130/80 if diabetic, DASH dietary guidelines, Decrease/maintain normal body weight and Moderation of ETOH Response Code Hypertension:: Patient communicates acknowledgment Diabetes Risk Factors Patient Diabetes Risk Factors Are:: Elevated blood sugars Date of HgbA1c:: 12/26/22 Recommendations Recommendations Include:: Maintain fasting blood sugars 70-110 md/dL, Maintain HgbA1c of 6% or less, Monitor blood sugar as prescribed, Diabetic dietary guidelines and Decrease/maintain body weight Response Code Diabetes:: Patient communicates acknowledgment Metabolic Syndrome Risk Factors Patient Metabolic Syndrome Risk Factors Are [3 of 5]:: Fasting blood sugar > 100 mg/dL, Waist circumference > 35 [female] or 40 [male], High triglyceride >150, Hypertension and Low HDL <40 [male] or < 50 [female] Recommendations Recommendations Include:: Reinforce compliance to risk factor modifications, Patient is diabetic and Encouraged follow-up with Primary Care Physician Response Code Metabolic Syndrome Response Code:: Patient communicates acknowledgment Sedentary Risk Factors Patient Sedentary Risk Factors Are:: Lack of regular exercise Recommendations Recommendations Include:: Aerobic exercise 5-7 times/week for 20-30 minutes continuously, Benefits of regular exercise, Discussed home walking program and Monitored Outpatient Cardiac Rehab Response Code Sedentary Response Code:: Patient communicates acknowledgment Stress Recommendations Recommendations Include:: Identification of stressors, and assessment of coping skills and Stress management techniques Response Code Stress Response Code:: Patient communicates acknowledgment
[2022-12-26] MEDS: Magnesium Chloride 64 MG Delay Rel.Tablet 128 MG PO (12:44)
--- NOTE | 2022-12-26 12:44 | PCM.PN.HOSP ---
Reason for Visit Reason for Visit: Diagnoses Unstable angina (12/25/22) Angina pectoris, unspecified (12/25/22) Atherosclerotic heart disease of [place] coronary artery without angina pectoris (12/25/22) Chest pain, unspecified (12/25/22) Personal history of other diseases of the circulatory system (12/25/22) Subjective Subjective Patient status post heart cath with 2 stents, no chest pain or shortness of breath, feeling better than she had been Objective Data Objective Data Vital Signs: Vital Signs Temp Pulse Resp BP Pulse Ox O2 Del Method 97.9 F 62 14 138/79 H 95 Room Air 12/26/22 11:10 12/26/22 12:10 12/26/22 12:10 12/26/22 12:10 12/26/22 12:10 12/26/22 12:10 Oxygen Delivery Method Room Air Weight: 89.8 kg Body Mass Index (BMI) 28.4 Intake & Output: Intake and Output for Last 24 Hours 12/24/22 12/25/22 12/26/22 23:59 23:59 23:59 Intake Total 1342.5 / 1342.5 2219.32 / 2219.32 Balance 1342.5 / 1342.5 2219.32 / 2219.32 Lab / Micro Data 12/26/22 05:23 12/26/22 05:23 Labs: Laboratory Results - last 24 hr 12/25/22 16:14: POC Glucose 142 H 12/25/22 19:09: APTT 42.7 H 12/25/22 21:36: POC Glucose 215 H 12/26/22 05:23: WBC 12.7 H, RBC 4.38, Hgb 12.8, Hct 39.1, MCV 89.3, MCH 29.2, MCHC 32.7, RDW Std Deviation 47.3 H, RDW Coeff of Rubens 14.6, Plt Count 170, MPV 11.9, Sodium 138, Potassium 3.4 L, Chloride 110 H, Carbon Dioxide 23.0, Anion Gap 5, BUN 12, Creatinine 0.83, Estim Creat Clear Calc 80.87, Est GFR (MDRD) Af Amer 91, Est GFR (MDRD) Non-Af 75, BUN/Creatinine Ratio 14.5, Glucose 207 H, Hemoglobin A1c 9.5 H, Calcium 8.6, Magnesium 1.7, Total Bilirubin 0.40, AST 15, ALT 17, Alkaline Phosphatase 80, Total Protein 6.6, Albumin 3.1 L, Globulin 3.5, Albumin/Globulin Ratio 0.9, Triglycerides 495 H, Cholesterol 283 H, LDL Cholesterol TNP, VLDL Cholesterol TNP, HDL Cholesterol 24 L, TSH 51.40 H, Free T4 0.73 L 12/26/22 05:52: POC Glucose 215 H 12/26/22 07:52: APTT 39.6 H 12/26/22 11:24: POC Glucose 207 H Radiography Diagnostic Testing: Radiology Impression Chest CTA 12/25/22 15:07 IMPRESSION: No demonstrated pulmonary embolism or arterial dissection. There are calcifications of the coronary arteries. Electronically Signed: Geovanny Gore MD at 16:51 EDT Reading [facility] ID [facility] [place] , Service support , Physical Exam Narrative General: Alert, oriented, no apparent distress HEENT: Atraumatic, normocephalic Eyes: Anicteric, normal conjunctiva, extraocular movements grossly intact Neck: Supple Respiratory: Clear to auscultation bilaterally, normal respiratory effort Cardiovascular: Regular rate and rhythm GI: Soft, nontender, nondistended Extremities: No edema Musculoskeletal: Moving all extremities Neuro: No overt focal neurological deficits Skin: No rashes appreciated Psych: Cooperative Assessment & Plan Assessment/Plan (1) Chest pain: QUALIFIERS: Chest pain type: chest pain due to myocardial ischemia Qualified Code(s): I20.9 - Angina pectoris, unspecified (2) Atherosclerotic heart disease of [place] coronary artery without angina pectoris: PLAN: Plan #Chest pain?determined to be unstable angina with subsequent stent placement -Given pain that is improved with nitroglycerin and rest and worsened on exertion with a heart score of 6 and a NIKKI score of 3 with nonspecific EKG changes and history of coronary artery disease suspect this is unstable angina -Aspirin, statin, will start on heparin drip -Consult cardiology -Continue to trend troponins -12/26: Patient taken to Wireless Store Manager 12/26/2022 and required stent placement x2, placed on Brilinta, continue atorvastatin, beta-james, aspirin, I will be very important that she be compliant with her Synthroid moving forward as well as present medications. We will monitor overnight, if doing well tomorrow possible DC. Yesterday prior to scheduling heart cath it was advised that she get CTA due to D-dimer elevation and CTA was negative #Dyslipidemia/hypertriglyceridemia -Patient had triglycerides of 495 with total cholesterol of 283, unable to calculate LDL, HDL 24. Will be very important that she continues high-dose 80 mg atorvastatin #History of thyroid cancer status post radiation on replacement -Check TSH and free T4, continue Synthroid -12/26: TSH 51.4 and free T40.73, upon further review she has not filled her Synthroid since July, Synthroid has been resumed, will need to follow on an outpatient basis closely #Leukocytosis -Suspect reactive, no present infectious signs or symptoms, will trend -12/26: Improved #Type 2 diabetes mellitus -Glucose checks and sliding scale insulin -12/26: A1c 9.5, will need medication in addition to lifestyle changes and follow-up #Tobacco use -Advise cessation -Patient refused nicotine replacement #DVT ppx: Lovenox subcu Loni Abdi MD Time spent in the patient's overall evaluation,decision-making process, review of diagnostic data, adjustment of management, discussion with other providers, nursing nursing and ancillary staff involved in patient's care [id number] Charges/Coding Visit Charges Inpatient E&M: 08266 Subs Hosp L2
--- NOTE | 2022-12-26 14:15 | CASEMGMT ---
SW met with patient. Introduced self and role at [facility]. SW asked patient if she needs any resources due to not having insurance. Patient declined. Patient said the only thing she did not know about was any new meds they may put her on at d/c. SW let patient know SW can watch out for any d/c medications. Sera Sandoval LANDSCAPER HELPER KRISS
[2022-12-26 17:44] LABS: Bedside Glucose 194 mg/dL (74-106)
[2022-12-26] MEDS: Atorvastatin Calcium 40 MG Tablet 80 MG PO (21:24)
[2022-12-26] MEDS: TICAGRELOR 90 MG TABLET PO (21:26)
[2022-12-26 22:11] LABS: Bedside Glucose 184 mg/dL (74-106)
[2022-12-27 03:30] VITALS: BP 124/79; PULSE 66; RESP 16; TEMP 36.9; O2SAT 94
[2022-12-27] MEDS: Levothyroxine 100 MCG Tablet 200 MCG PO (05:54)
[2022-12-27] MEDS: Insulin Lispro 100 UNIT/ML INSULN.PEN SC ×2 (06:00→12:42)
[2022-12-27 06:19] LABS: Hematocrit 42.1 % (37-47); Hemoglobin 14.1 g/dL (12.0-15.0); Mean Corp Hgb Conc 33.5 g/dL (32-36); Mean Corpuscular Hgb 29.7 pg (27.0-32.0); Mean Corpuscular Volume 88.6 fL (81-99); Mean Platelet Vol. 11.7 fl (6.2-12.0); Platelet Count 176 K/mm3 (150-450); RBC Distribution Width CV 14.6 % (11.6-14.6); Red Blood Count 4.75 M/mm3 (4.2-5.4)
[2022-12-27 06:48] LABS: Bedside Glucose 203 mg/dL (74-106)
[2022-12-27 06:50] LABS: ALB/GLOB Ratio 0.9 RATIO (0.9-2.4); AST(SGOT) 11 U/L (15-37); Alanine Aminotransfer ALT/SGPT 18 U/L (13-56); Albumin, Serum 3.5 g/dL (3.2-5.0); Alkaline Phosphatase 87 U/L (45-117); Anion Gap 3 (5-15); BUN 13 mg/dL (7-18); BUN/Creat Ratio 14.5 RATIO (10-20); Calcium,Total 9.3 mg/dL (8.5-10.1); Chloride 109 mmol/L (98-107); EST Glomerular Filtration Rate 69 mL/min (>60); Est Glom Filt Rate - Afr Amer 83 mL/min (>60); Estimated Creatinine Clearance 74.58 ml/min; Globulin 3.9 g/dL (2.2-4.2); Glucose 194 mg/dL (74-106); Potassium 3.6 mmol/L (3.5-5.1); Protein, Total 7.4 g/dL (6.4-8.2); Sodium Level 137 mmol/L (136-145)
[2022-12-27 08:02] VITALS: O2SAT 95
[2022-12-27 08:14] VITALS: BP 133/78; PULSE 60; RESP 14; TEMP 36.9; O2SAT 96
[2022-12-27] MEDS: Aspirin E.C. 81 MG Tablet PO (08:22)
[2022-12-27 08:23] VITALS: BP 133/78; PULSE 60
[2022-12-27] MEDS: Metoprolol Tartrate 25 MG Tablet PO (08:23)
[2022-12-27] MEDS: TICAGRELOR 90 MG TABLET PO (08:23)
[2022-12-27] MEDS: Enoxaparin 40 MG/0.4 ML Syringe SC (08:23)
--- NOTE | 2022-12-27 10:00 | EKG12_ITS ---
Test Reason : AM EKG Blood Pressure : / mmHG Vent. Rate : 059 BPM Atrial Rate : 059 BPM P-R Int : 212 ms QRS Dur : 090 ms QT Int : 432 ms P-R-T Axes : 024 074 069 degrees QTc Int : 427 ms Sinus bradycardia with 1st degree A-V block Otherwise normal ECG When compared with ECG of 26-DEC-2022 12:12, MANUAL COMPARISON REQUIRED, DATA IS UNCONFIRMED Confirmed by BOB DELONG, TIKI ([id number]), health editor BROWN KIRKLAND ([id number]) on 12/29/2022 1:34:44 PM Referred By: Confirmed By:RONNIE ROJAS MD
--- NOTE | 2022-12-27 10:32 | DS.PCM_ITS ---
Providers Date of Admission: 12/25/22 Date of Discharge: 12/27/22 Primary Care Physician: [facility] Consultations 12/25/22 11:54 Consult: Cardiology Routine Consulting Provider: Ashwin Tovar Reason for Consult: Chest Pain, concern for unstable angina EMERGENT Consult: No MD Notified: Yes Date Notified: 12/25/22 Time Notified: 12:22 Method of Notification: Text Reason For Visit: CHEST PAIN Diagnosis Discharge Diagnosis (1) Chest pain: Status: Acute Code(s): R07.9 - Chest pain, unspecified Qualifiers: Chest pain type: chest pain due to myocardial ischemia Qualified Code(s): I20.9 - Angina pectoris, unspecified (2) Atherosclerotic heart disease of [place] coronary artery without angina pectoris: Status: Chronic Code(s): I25.10 - Atherosclerotic heart disease of [place] coronary artery without angina pectoris Plan #Chest pain?determined to be unstable angina with subsequent stent placement #CAD s/p stenting #Dyslipidemia/hypertriglyceridemia #History of thyroid cancer status post radiation on replacement #Leukocytosis-reactive #Type 2 diabetes mellitus #Tobacco use Medications at Discharge Home Medications nitroglycerin 0.4 mg sublingual tablet 0.4 mg sublingual Q5M PRN Cardiac/Chest Pain #30 tabs 08/19/18 cholecalciferol (vitamin D3) 25 mcg (1,000 unit) tablet 4,000 unit PO DAILY 10/16/19 acetaminophen 500 mg tablet 1,000 mg PO Q8H PRN PRN pain 12/25/22 aspirin 81 mg tablet,delayed release 81 mg PO DAILY 30 days #30 tabs 12/27/22 atorvastatin 80 mg tablet 80 mg PO QHS 30 days #30 tabs 12/27/22 clopidogrel 75 mg tablet 75 mg PO DAILY 30 days #30 tabs 12/27/22 levothyroxine 200 mcg tablet 200 mcg PO DAILY THYROID 30 days #30 tabs 12/27/22 metformin 1,000 mg tablet 1,000 mg PO BID 30 days #60 tabs 12/27/22 metoprolol tartrate 25 mg tablet 25 mg PO Q12H 30 days #60 tabs 12/27/22 Hospital Course Procedures Cardiac catheterization Summary of Care Provided Minutes Spent on Discharge: 33 Hospital Course: EMERITA COOLEY, is a 57 F with a history of coronary artery disease disease with 4 stents, thyroid cancer status post radiation now on replacement, skin cancer, tobacco use, diabetes, depression and anxiety who presented to [facility] 12/25/2022 with chest pain. Her symptoms were consistent with unstable angina and she had EKG with nonspecific ST changes despite initial troponins. Due to suspicious history she was started on full dose anticoagulation and cardiology consulted. She underwent heart cath 12/26/2022 and had a successful ROBERTO placement to mid RCA and proximal RPL. She tolerated procedure well with no acute events overnight and no further chest pain or shortness of breath. Discussed with cardiology regarding her lack of insurance and Brilinta versus Plavix, it was advised 1 month of Brilinta followed by Plavix versus just Plavix. Given patient's difficulty with compliance we will simplify this is much as possible and discharged on Plavix and will send in refills for this medication as well as other home medications that have been prescribed to try to improve compliance. Stressed importance of taking her medications as prescribed especially the aspirin and Plavix and she verbalized her understanding. Discharged home in stable condition with the following discharge instructions: -You will need to follow-up with cardiology upon discharge, please call the office upon discharge to schedule your hospital follow-up appointment (ph [phone]). You will be scheduled with a different provider as Dr. Tovar does not see patients in the office. -It will be incredibly important that you take your heart medications as prescribed. You will need to take aspirin 81 mg, atorvastatin 80 mg, metoprolol tartrate 25 mg twice daily, and Plavix, new scripts have been sent to your preferred pharmacy on file. Additionally please take your levothyroxine 200 mcg daily, you will need to follow-up with a primary care physician for repeat lab work and further adjustment of this medication -Please resume your metformin as you have glucose levels consistent with diabetes -Do only light and easy activities for 2 to 3 days after your stent placement, ask for help with chores and errands while you recover and have someone drive you to your appointments. -Unless your job involves lifting you may return to normal activities within 2 days -Please take your medications as prescribed, do not skip doses -Check your incisions every day for signs of infection which would include redness, swelling, leaking. It is normal to have a small bruise or bump where the catheter was placed but a bruise that is getting larger is not normal. Please tell your healthcare team about this. Please proceed to the emergency department if you have uncontrollable bleeding from the site. -It is important to eat a diet that is low in fat, salt, and cholesterol -You will be set up with cardiac rehab upon discharge, it is important that you follow-up -Okay to shower from the day after your heart catheterization but keep your incision site clean and dry. -Please call your primary care provider's office upon discharge to schedule a hospital follow up within 1 week. -For any concerning signs or symptoms please call 911 or proceed to the nearest emergency department Physical Exam Narrative General: Alert, oriented, no apparent distress HEENT: Atraumatic, normocephalic Eyes: Anicteric, normal conjunctiva, extraocular movements grossly intact Neck: Supple Respiratory: Clear to auscultation bilaterally, normal respiratory effort Cardiovascular: Regular rate and rhythm GI: Soft, nontender, nondistended Extremities: No edema Musculoskeletal: Moving all extremities Neuro: No overt focal neurological deficits Skin: No rashes appreciated Psych: Cooperative Weight / BMI Weight Weight: 89.8 kg Body Mass Index (BMI) 28.4 ABG / Lab / Microbiology Data 12/27/22 05:44 12/27/22 05:44 Laboratory: Laboratory Results - last 24 hr 12/26/22 11:24: POC Glucose 207 H 12/26/22 17:10: POC Glucose 194 H 12/26/22 20:33: POC Glucose 184 H 12/27/22 05:44: WBC 14.0 H, RBC 4.75, Hgb 14.1, Hct 42.1, MCV 88.6, MCH 29.7, MCHC 33.5, RDW Std Deviation 47.0 H, RDW Coeff of Rubens 14.6, Plt Count 176, MPV 11.7, Sodium 137, Potassium 3.6, Chloride 109 H, Carbon Dioxide 25.0, Anion Gap 3 L, BUN 13, Creatinine 0.90, Estim Creat Clear Calc 74.58, Est GFR (MDRD) Af Amer 83, Est GFR (MDRD) Non-Af 69, BUN/Creatinine Ratio 14.5, Glucose 194 H, Calcium 9.3, Total Bilirubin 0.60, AST 11 L, ALT 18, Alkaline Phosphatase 87, Total Protein 7.4, Albumin 3.5, Globulin 3.9, Albumin/Globulin Ratio 0.9 12/27/22 05:51: POC Glucose 203 H Radiography Diagnostic Testing: Radiology Impression Echocardiogram 12/25/22 11:54 Interpretation Summary The estimated ejection fraction is 60 %. Mild-Moderate (1-2+) mitral valve insufficiency. Trivial pericardial effusion. Ordering Physician: Loni Abdi Performed By: Mery Vazquez RDCS D/C Instructions Discharge Diet: - (DASH diet) Meaningful Use Info Meaningful Use Diagnoses (Choose all that apply): AMI AMI/Post PCI/Angioplasty Aspirin given w/in 24hrs of arrival?: Yes ASA at discharge?: Yes Antiplatelet Therapy at Discharge:: Yes Statins at discharge?: Yes El/ARB at discharge?: No Reason El/ARB not ordered:: Allergy Beta Danny at discharge?: Yes Done w/ Acute NM measure.: Yes Documented LVEF (%): 60 Discharge Plan Admission Admit Date/Time: 12/25/22 15:15 Primary Reason for Your Visit: Chest pain Attending Provider: Loni Abdi [facility] Providers: Ashwin Tovar Instructions Patient Instructions: Cardiac Cath Transradial Additional Instructions / Restrictions: DISCHARGE INSTRUCTIONS PLEASE READ *Please take this with you to your next doctors appointment* -You will need to follow-up with cardiology upon discharge, please call the office upon discharge to schedule your hospital follow-up appointment ). You will be scheduled with a different provider as Dr. Tovar does not see patients in the office. -It will be incredibly important that you take your heart medications as prescribed. You will need to take aspirin 81 mg, atorvastatin 80 mg, metoprolol tartrate 25 mg twice daily, and Plavix, new scripts have been sent to your preferred pharmacy on file. Additionally please take your levothyroxine 200 mcg daily, you will need to follow-up with a primary care physician for repeat lab work and further adjustment of this medication -IT IS INCREDIBLY IMPORTANT YOU TAKE THE ASPIRIN AND PLAVIX PRESCRIBED OR YOU COULD HAVE COMPLICATIONS WITH YOUR STENTS -Please resume your metformin as you have glucose levels consistent with diabetes, you will resume this the morning of 12/29/22 -Do only light and easy activities for 2 to 3 days after your stent placement, ask for help with chores and errands while you recover and have someone drive you to your appointments. -Unless your job involves lifting you may return to normal activities within 2 days -Please take your medications as prescribed, do not skip doses -Check your incisions every day for signs of infection which would include redness, swelling, leaking. It is normal to have a small bruise or bump where the catheter was placed but a bruise that is getting larger is not normal. Please tell your healthcare team about this. Please proceed to the emergency department if you have uncontrollable bleeding from the site. -It is important to eat a diet that is low in fat, salt, and cholesterol -You will be set up with cardiac rehab upon discharge, it is important that you follow-up -Okay to shower from the day after your heart catheterization but keep your incision site clean and dry. -Please call your primary care provider's office upon discharge to schedule a hospital follow up within 1 week. -For any concerning signs or symptoms please call 911 or proceed to the nearest emergency department Discharge Orders/Prescriptions Prescriptions: Continued cholecalciferol (vitamin D3) 25 mcg (1,000 unit) tablet 4,000 unit PO DAILY nitroglycerin 0.4 MG tablet 0.4 mg sublingual Q5M PRN (Reason: Cardiac/Chest Pain) Qty: 30 0RF acetaminophen 500 mg tablet 1,000 mg PO Q8H PRN PRN (Reason: pain) Patient Comments: PT STATES TAKES 2 TABS EVERY 8-12 HOURS NEEDED atorvastatin 80 MG tablet 80 mg PO QHS 30 Days Qty: 30 2RF clopidogrel 75 mg tablet 75 mg PO DAILY 30 Days Qty: 30 2RF Patient Comments: TAKE 1 TABLET BY MOUTH ONCE DAILY aspirin 81 mg tablet,delayed release (DR/EC) 81 mg PO DAILY 30 Days Qty: 30 2RF metformin 1,000 mg tablet 1,000 mg PO BID 30 Days Qty: 60 2RF levothyroxine 200 mcg tablet 200 mcg PO DAILY 30 Days Qty: 30 3RF metoprolol tartrate 25 mg tablet 25 mg PO Q12H 30 Days Qty: 60 2RF Discontinued hydrochlorothiazide 25 MG tablet 25 mg PO DAILY levothyroxine 300 mcg tablet 300 mcg PO .EVERY OTHER DAY Patient Comments: TAKE 1 TABLET BY MOUTH EVERY OTHER DAY Referrals / Follow Up: Ashwin Tovar MD [Med Staff - Active Staff] - Within 2 Weeks (You will need to follow-up with cardiology upon discharge, please call the office upon discharge to schedule your hospital follow-up appointment (ph [phone]). You will be scheduled with a different provider as Dr. Tovar does not see patients in the office.) [facility],Ivory Ruiz [Primary Care Provider] - Within 1 Week Disposition Disposition (needs filled in before D/C Order can be placed): Home, Self Care Charges/Coding Visit Charges Inpatient E&M: 30583 Disch Hosp >30min
--- NOTE | 2022-12-27 10:50 | PHA.DC.MR.R ---
Pharmacy [place] Med Reconciliation Pharmacy Service has performed discharge medication reconciliation for this patient. The patient's discharge medication list was reviewed for discrepancies and discrepancies were resolved. Medications at Discharge Home Medications nitroglycerin 0.4 mg sublingual tablet 0.4 mg sublingual Q5M PRN Cardiac/Chest Pain #30 tabs 08/19/18 cholecalciferol (vitamin D3) 25 mcg (1,000 unit) tablet 4,000 unit PO DAILY 10/16/19 acetaminophen 500 mg tablet 1,000 mg PO Q8H PRN PRN pain 12/25/22 aspirin 81 mg tablet,delayed release 81 mg PO DAILY 30 days #30 tabs 12/27/22 atorvastatin 80 mg tablet 80 mg PO QHS 30 days #30 tabs 12/27/22 clopidogrel 75 mg tablet 75 mg PO DAILY 30 days #30 tabs 12/27/22 levothyroxine 200 mcg tablet 200 mcg PO DAILY THYROID 30 days #30 tabs 12/27/22 metformin 1,000 mg tablet 1,000 mg PO BID 30 days #60 tabs 12/27/22 metoprolol tartrate 25 mg tablet 25 mg PO Q12H 30 days #60 tabs 12/27/22
--- NOTE | 2022-12-27 11:00 | CASEMGMT ---
RN IRAM DIRECTOR OF SOCIAL SERVICES IRAM to room for initial transition planning/care coordination assessment. SAMIR WALDEN introduced self and role at [facility].? Pt sitting on edge of bed. Pt voices understanding and consents to assessment at this time.? Pt is A/O at this time and answers all questions appropriately.?? Care providers, pharmacy, and demographics verified/updated at this time. PCP: Ivory Ricefredonia Basilia Specialists: none Preferred Pharmacy: [facility] Insurance: none. Self-pay Prescription Benefit:? none. Discussed Brilinta 30-day savings card and made aware it would be applied @ [facility] pharmacy. Questions answered. Pt voices understanding and states she was already informed she would be taking Plavix again after the 30-day supply runs out. Living Will/HPOA:? Pt does not currently have LW/HCPOA. Pt made aware that she can contact as an out-pt and make appt in the future if she decides she would like to talk with someone about this or would like to utilize [facility] social work for advanced directive completion. Pt expresses understanding.? LNOK: 2 sons. Mother, Tequila Living Arrangements: Lives w/mom and brother in mobile home w/3 steps to enter. Independent w/ADL's and IADL's. Transportation:?Pt states drives self and states no transportation concerns at this time.? DME: Has a functioning glucometer w/supplies and a pulse ox. Pt states she has all medications as needed, but states she does not take her insulin regularly, as she states does not want to run out d/t it can be expensive. She states has even been using her son's insulin that he does not need anymore since it is the same insulin that is prescribed to her. SAMIR WALDEN advised her to not take someone else's medication and to discuss concerns re: cost of her insulin @ [facility]. She voices understanding. She did verify again that she has enough of her own for now. HHC/SNF: No hx of either. Denies need for HHC and no needs identified. Pt wishes to return home and states has no concerns with going home at time of discharge.? CM to follow for any further discharge planning/needs.? Pt voices no further concerns/needs at this time.? Advised pt to ask for CM if any further questions/concerns/needs arise.? Voices understanding. PLAN:?Home? DGiauque BSN RN CM
--- NOTE | 2022-12-27 11:03 | PCM.DC ---
Discharge Instructions Diet Discharge Diet: - (DASH diet) Follow Up Care Test Results: Test results from this visit will be discussed in further detail at your follow-up appointment, if applicable. Discharge Plan Admission Admit Date/Time: 12/25/22 15:15 Primary Reason for Your Visit: Chest pain Attending Provider: Loni Abdi Primary Care Provider: [facility] Ivory Jasso Consulting Providers: Ashwin Tovar Instructions Patient Instructions: Cardiac Cath Transradial Additional Instructions / Restrictions: DISCHARGE INSTRUCTIONS PLEASE READ *Please take this with you to your next doctors appointment* -You will need to follow-up with cardiology upon discharge, please call the office upon discharge to schedule your hospital follow-up appointment ). You will be scheduled with a different provider as Dr. Tovar does not see patients in the office. -It will be incredibly important that you take your heart medications as prescribed. You will need to take aspirin 81 mg, atorvastatin 80 mg, and metoprolol tartrate 25 mg twice daily. -You will be given a savings card for Brilinta for 30 days, after this script has completed you will begin taking the plavix daily. DO NOT TAKE BRILINTA AND PLAVIX TOGETHER, TAKE BRILINTA FOR THE NEXT 30 DAYS FOLLOWED BY PLAVIX DAILY. All scripts have been sent to your preferred pharmacy on file. Additionally please take your levothyroxine 200 mcg daily, you will need to follow-up with a primary care physician for repeat lab work and further adjustment of this medication -IT IS INCREDIBLY IMPORTANT YOU TAKE THE ASPIRIN AND BRILINTA FOLLOWED BY PLAVIX PRESCRIBED OR YOU COULD HAVE COMPLICATIONS WITH YOUR STENTS -Please resume your metformin as you have glucose levels consistent with diabetes, you will resume this the morning of 12/29/22 -Do only light and easy activities for 2 to 3 days after your stent placement, ask for help with chores and errands while you recover and have someone drive you to your appointments. -Unless your job involves lifting you may return to normal activities within 2 days -Please take your medications as prescribed, do not skip doses -Check your incisions every day for signs of infection which would include redness, swelling, leaking. It is normal to have a small bruise or bump where the catheter was placed but a bruise that is getting larger is not normal. Please tell your healthcare team about this. Please proceed to the emergency department if you have uncontrollable bleeding from the site. -It is important to eat a diet that is low in fat, salt, and cholesterol -You will be set up with cardiac rehab upon discharge, it is important that you follow-up -Okay to shower from the day after your heart catheterization but keep your incision site clean and dry. -Please call your primary care provider's office upon discharge to schedule a hospital follow up within 1 week. -For any concerning signs or symptoms please call 911 or proceed to the nearest emergency department Discharge Orders/Prescriptions Prescriptions: New Brilinta 90 mg tablet 90 mg PO BID Qty: 60 0RF Rx Instructions: 30 day savings card then switch to plavix Continued cholecalciferol (vitamin D3) 25 mcg (1,000 unit) tablet 4,000 unit PO DAILY nitroglycerin 0.4 MG tablet 0.4 mg sublingual Q5M PRN (Reason: Cardiac/Chest Pain) Qty: 30 0RF acetaminophen 500 mg tablet 1,000 mg PO Q8H PRN PRN (Reason: pain) Patient Comments: PT STATES TAKES 2 TABS EVERY 8-12 HOURS NEEDED atorvastatin 80 MG tablet 80 mg PO QHS 30 Days Qty: 30 2RF clopidogrel 75 mg tablet 75 mg PO DAILY 30 Days Qty: 30 2RF Patient Comments: TAKE 1 TABLET BY MOUTH ONCE DAILY aspirin 81 mg tablet,delayed release (DR/EC) 81 mg PO DAILY 30 Days Qty: 30 2RF metformin 1,000 mg tablet 1,000 mg PO BID 30 Days Qty: 60 2RF levothyroxine 200 mcg tablet 200 mcg PO DAILY 30 Days Qty: 30 3RF metoprolol tartrate 25 mg tablet 25 mg PO Q12H 30 Days Qty: 60 2RF Discontinued hydrochlorothiazide 25 MG tablet 25 mg PO DAILY levothyroxine 300 mcg tablet 300 mcg PO .EVERY OTHER DAY Patient Comments: TAKE 1 TABLET BY MOUTH EVERY OTHER DAY Referrals / Follow Up: Ashwin Tovar MD [Med Staff - Active Staff] - Within 2 Weeks (You will need to follow-up with cardiology upon discharge, please call the office upon discharge to schedule your hospital follow-up appointment (ph [phone]). You will be scheduled with a different provider as Dr. Tovar does not see patients in the office.) [facility],Ivory Ruiz [Primary Care Provider] - Within 1 Week Disposition Disposition (needs filled in before D/C Order can be placed): Home, Self Care
--- NOTE | 2022-12-27 11:20 | CASEMGMT ---
SW spoke with physician and she is going to prescribe several medications. SW spoke with patient and let her know this information and that [facility] can assist 1 time a year with medications. Patient was appreciative. SW also provided patient with a list of prescription assistance programs. Sera MONTERROSO
[2022-12-27 12:04] LABS: Bedside Glucose 261 mg/dL (74-106)
[2022-12-27 12:19] VITALS: BP 125/67; PULSE 64; RESP 14; TEMP 36.6; O2SAT 95
== END 2022-12-27 11:35 | disposition home or self-care (01) | DRG 247 ==
LOC: ED 10:29 → PCU 11:35
PROVIDERS: Specialist; Admitting Provider Internal Medicine; Emergency Provider Emergency Medicine; Visit Provider Internal Medicine
DX: I25.110 Atherosclerotic heart disease of native coronary artery with unstable angina pectoris (principal); E11.40 Type 2 diabetes mellitus with diabetic neuropathy, unspecified; I10 Essential (primary) hypertension; F17.210 Nicotine dependence, cigarettes, uncomplicated; K04.7 Periapical abscess without sinus; E78.5 Hyperlipidemia, unspecified; Z95.5 Presence of coronary angioplasty implant and graft; Z79.02 Long term (current) use of antithrombotics/antiplatelets; Z79.82 Long term (current) use of aspirin; Z79.891 Long term (current) use of opiate analgesic; Z92.3 Personal history of irradiation; Z79.84 Long term (current) use of oral hypoglycemic drugs; Z85.850 Personal history of malignant neoplasm of thyroid; R05.3 Chronic cough
CPT/HCPCS: 36415; 71045; 71275; 80048; 80053; 80061; 82962; 83036; 83735; 84439; 84443; 84484; 85025; 85027; 85379; 85610; 85730; 92928; 93005; 93306; 93454; 99152; 99153; 99284; 99406; C1887; J7030; Q9967; A4216; C1725; C1769; C1874; C1894; C9600; J1327

== ENCOUNTER 2024-01-06 21:04 | Inpatient (IN) | payer OTHER, SELFPAY ==
[2024-01-06] VITALS (8 sets, daily range): BP systolic 119–138; BP diastolic 80–102; PULSE 62–74; RESP 15–20; TEMP 36.1–36.3; O2SAT 92–97; BMI 27.7; BMI 27.6
--- NOTE | 2024-01-06 21:21 | EKG12_ITS ---
Test Reason : CP Blood Pressure : / mmHG Vent. Rate : 069 BPM Atrial Rate : 069 BPM P-R Int : 208 ms QRS Dur : 088 ms QT Int : 428 ms P-R-T Axes : 019 -56 061 degrees QTc Int : 458 ms Normal sinus rhythm Left anterior fascicular block Inferior infarct , age undetermined ST & T wave abnormality, consider anterior ischemia Abnormal ECG Confirmed by KAMI MATHEWS MD ([id number]), online content editor HOWARD HENAO ([id number]) on 01/07/2024 9:49:17 AM Referred By: ADRIANA Confirmed By:KAMI MATHEWS MD
--- NOTE | 2024-01-06 21:24 | ED.VIS.CHEST ---
HPI History of Present Illness Chief Complaint: Chest Pain Detail of Chief Complaint: 3 episodes of exertional chest pain today and 1 episode 2 to 3 days ago Informant: patient Onset/Context/Timing Onset: Today and Days Activity at onset: light activity and exertion Timing: Intermittent (Duration approximately 15 to 20 minutes) Quality: Positive for - (Feels like a vice on my chest) Location: Substernal and Left Chest Current Severity: Gone Maximum Severity: Moderate Worsened By: Exertion Relieved By: Rest (Is alleviated after 10 minutes of rest) Associated Symptoms: Positive for Nausea, Diaphoresis, Dyspnea and - (Similar to prior [place] in December of last year) Narrative Narrative: Patient presents because of 3 episodes of chest pain describes a vice around my chest with diaphoresis, shortness of breath and nausea. All 3 episodes occurred with activity. First episode occurred when she was lifting and moving a close basket. First episode was a couple of days ago when she lifted her . That did not last as long nor was it as severe. Patient has not had pain since her [place] December of last year. At that time she had stent placed in the RCA and RPL. She had a 90% lesion in the mid right coronary artery and 90% stenosis in the proximal RPL. Patient did not take any nitro because it was . Prior Similar Symptoms: Yes and With Prior [place] Recent Illness/Hospitalization: No CVD Risk Factors: Positive for Hypertension, Diabetes and Hypercholesterolemia PE Risk Factors: Negative for Recent Travel/Surgery, Recent Immobilization, Prior DVT or PE, Cancer or OCP + Smoking + >/=35 TAD Risk Factors: Positive for Hypertension; Negative for Marfan's Syndrome or Family History [facility] Medical History (Updated 01/06/24 @ 22:[address] Nate Heller MD) Heart attack Leukocytosis Cholecystectomy planned Essential hypertension Other and unspecified hyperlipidemia DM w/o complication type II Hypothyroidism Atherosclerotic heart disease of [place] coronary artery without angina pectoris Smoking Hypertension Diabetes Home Medications ?Medication ?Instructions ?Recorded ?Last Taken ?Type nitroglycerin 0.4 mg sublingual 0.4 mg sublingual Q5M PRN 08/19/18 12/20/22 Rx tablet Cardiac/Chest Pain #30 tabs cholecalciferol (vitamin D3) 25 4,000 unit PO DAILY 10/16/19 12/24/22 History mcg (1,000 unit) tablet acetaminophen 500 mg tablet 1,000 mg PO Q8H PRN PRN pain 12/25/22 12/18/22 History aspirin 81 mg tablet,delayed 81 mg PO DAILY 30 days #30 tabs 12/27/22 Unknown Rx release atorvastatin 80 mg tablet 80 mg PO QHS 30 days #30 tabs 12/27/22 Unknown Rx clopidogrel 75 mg tablet 75 mg PO DAILY 30 days #30 tabs 12/27/22 Unknown Rx levothyroxine 200 mcg tablet 200 mcg PO DAILY THYROID 30 days 12/27/22 Unknown Rx #30 tabs metformin 1,000 mg tablet 1,000 mg PO BID 30 days #60 tabs 12/27/22 Unknown Rx metoprolol tartrate 25 mg tablet 25 mg PO Q12H 30 days #60 tabs 12/27/22 Unknown Rx Allergy/AdvReac Type Severity Reaction Status Date / Time codeine Allergy Hives Verified 01/06/24 21:07 hydromorphone HCl (From Allergy Chest Verified 01/06/24 21:07 Dilaudid) tightness lisinopril Allergy Other Verified 01/06/24 21:07 tree and shrub pollen Allergy NEEDS Verified 01/06/24 21:07 FOLLOW-UP Family History Father Cancer Hodgkins Heart disease Mother Hypertension Surgical History History of coronary artery stent placement (12/26/22) History of partial hysterectomy S/P appendectomy Stented coronary artery (~2015) Social History household members: none Smoking Status: Current every day smoker tobacco type: cigarettes alcohol intake: current alcohol intake frequency: holidays/special occasions only substance use type: does not use what type of physical activity do you participate in: other ROS ROS ED Constitutional Constitutional ED: Denies chills, fever(s) or subjective Eyes Eyes: Reports none ENT ENT ED: Denies ear pain or rhinorrhea Cardiovascular Cardiovascular: Reports as per HPI; Denies orthopnea or paroxysmal nocturnal dyspnea Respiratory/Chest Respiratory/Chest: Reports dyspnea and dyspnea on exertion; Denies cough, orthopnea or paroxysmal nocturnal dyspnea Gastrointestinal Gastrointestinal: Reports nausea; Denies abdominal pain, diarrhea or vomiting Musculoskeletal Musculoskeletal: Denies back pain or neck pain Integumentary Denies rash Neurologic Neurologic: Denies headache(s) or paresthesias Hematologic/Lymphatic Hematologic/Lymphatic: Denies easy bleeding or easy bruising EXAM Physical Exam Const Vital Signs: 01/06/24 21:05 01/06/24 21:23 01/06/24 21:35 Temperature 96.9 F L Temperature Source Temporal Pulse Rate 74 71 Respiratory Rate 20 H 16 Respiratory Effort Blood Pressure 133/85 H Blood Pressure Mean 101 Pulse Ox 97 95 Oxygen Delivery Method Room Air Room Air 01/06/24 21:45 01/06/24 21:49 01/06/24 21:53 Temperature 97.4 F L Temperature Source Pulse Rate 66 66 Respiratory Rate 20 H 16 Respiratory Effort Normal Blood Pressure 131/84 H 131/84 H Blood Pressure Mean 97 99 Pulse Ox 92 95 Oxygen Delivery Method 01/06/24 22:00 01/06/24 22:15 Temperature Temperature Source Pulse Rate 65 64 Respiratory Rate 15 16 Respiratory Effort Blood Pressure 120/102 H 138/85 H Blood Pressure Mean 111 101 Pulse Ox 96 93 Oxygen Delivery Method Positive well nourished and well developed General Appearance ED: well developed and NAD; Negative for pallor HEENT Reports moist mucous membranes normocephalic and atraumatic Eyes PERRL and EOMs intact bilaterally General Eye ED: Negative for pale conjunctiva or scleral icterus Neck no lymphadenopathy, supple and no JVD Chest Wall inspection of chest normal and palpation of chest normal Resp normal respiratory effort and clear to auscultation bilaterally Cardio regular rate, regular rhythm, S1 normal heart sound, S2 normal heart sound and no murmurs Peripheral Pulses: pulses 2+ throughout GI normal to inspection, nondistended, normoactive bowel sounds, soft to palpation, non-tender, non-distended and no masses; Negative for hepatosplenomegaly Back/Spine no CVA tenderness and no thoracic nor lumbar tenderness Extremity normal to inspection General Extremety ED: Negative for edema or pulses abnormal General Extremity: Negative for edema or pulses abnormal Neuro oriented x3, CN's II-XII intact bilaterally and no sensory deficits noted Psych mental status grossly normal Skin no rashes or lesions noted and no wounds General Skin Exam: Negative for jaundice or pallor Heart Score History: Highly Suspicious ECG: Nonspecific Repolarization Age: >45 - <65 years Risk Factors: >/= 3 Risk Factors or History of CAD Score: 6 MDM MDM MDM Narrative Medical decision making narrative: Patient has classic exertional angina. Will obtain EKG determine there is any acute ischemic changes. Need to evaluate for ST elevation [place], acute coronary syndrome, noncardiac as well. Workup included EKG, chest x-ray, appropriate blood work. She was given aspirin. Since she has EKG changes that are new since December 27, 2022 she was started on heparin drip. Cardiology was paged as well as hospitalist. Lab Data Attestation: I reviewed the patient's lab results. Lab results narrative: CBC reveals an elevated white count which is consistent with a non-STEMI. PT PTT are normal. Electrolyte panel is marked for mild hypokalemia. Creatinine slight elevated 1.13 with an estimated GFR 53. Troponin is elevated 137. Labs: Laboratory Results - last 24 hr 01/06/24 21:15 WBC 14.7 H RBC 4.97 Hgb 14.6 Hct 43.7 MCV 87.9 MCH 29.4 MCHC 33.4 RDW Std Deviation 45.3 H RDW Coeff of Rubens 14.2 Plt Count 217 MPV 11.3 Immature Gran % (Auto) 0.500 Neut % (Auto) 37.1 L Lymph % (Auto) 56.5 H [place] % (Auto) 4.2 Eos % (Auto) 1.0 Baso % (Auto) 0.7 Absolute Neuts (auto) 5.5 Absolute Lymphs (auto) 8.29 H Nucleated RBC % 0 PT 13.8 INR 1.1 APTT 30.6 Sodium 138 Potassium 3.1 L Chloride 103 Carbon Dioxide 29.0 Anion Gap 6 BUN 18 Creatinine 1.13 H Estim Creat Clear Calc 65.26 Est GFR (MDRD) Af Amer 64 Est GFR (MDRD) Non-Af 53 L BUN/Creatinine Ratio 15.9 Glucose 209 H Calcium 8.8 Troponin I High Sens 137 H* Radiography Chest X-Ray - ED: 1 View and Read by ED Physician (2233. There is atelectasis left lower lobe. Cardiac silhouette is not visualized well on the left. Cardiac size is normal. [place] is normal. There is no evidence of cephalization or heart failure. [place] structures are unremarkable.) EKG Initial EKG: Attestation: I personally reviewed and interpreted this EKG as follows: Interpretation: Sinus Rhythm (First EKG was obtained at 2115. EKG reveals sinus rhythm rate of 69. There is left anterior fascicular block. There are new ST-T wave changes in the anterior leads compared to December 2022. AL interval is 208 ms. QS duration 88 ms. QT durations 4 and 28 ms. [place] is to the left.) Prior: Changed Follow-up EKG: Attestation: I personally reviewed and interpreted this EKG as follows: Interpretation: Sinus Rhythm (EKG with pain. Sinus rhythm rate is 60 with a first-degree AV block. There is now an RR prime in V1 which was not noted in the first EKG. QRS duration 94 ms. QT duration 446 ms. There is no significant difference in the ST-T wave changes in the anterior leads compared to the EKG performed at ) Management Discussion w/another healthcare provider: Hospitalist and Drilling Manager Treatment and Re-Evaluation :: Nurse informed me at 2215 the patient is having 5 out of 5 midsternal tightness. EKG was ordered. Nitroglycerin drip was ordered Critical Care Time Critical Care Time: Yes Critical care time (excluding procedures): 30-74 minutes (34), Including time spent: (History, physical, documentation, independent interpretation of imaging, EKG blood work), Discussing w/Patient &/or Family/Grocery Store Associate, Discussing w/Consultants (Call was placed to cardiology. As of 2220 there is been no callback. Spoke with the hospitalist. Patient states she she would like more information prior to admission.), Arranging Admission or Transfer and - (Because of chest pain at rest we will start patient on nitroglycerin drip. Will obtain EKG prior.) Discharge Plan Triage Chief Complaint: Chest Pain ED Provider: Nate Heller Dx/Rx/DC Orders Clinical Impression: Atherosclerosis of coronary artery with unstable angina pectoris, Hypothyroidism, Abnormal EKG, Acute hypokalemia, Creatinine elevation, Troponin level elevated Prescriptions: No Action cholecalciferol (vitamin D3) 25 mcg (1,000 unit) tablet 4,000 unit PO DAILY nitroglycerin 0.4 MG tablet 0.4 mg sublingual Q5M PRN (Reason: Cardiac/Chest Pain) Qty: 30 0RF acetaminophen 500 mg tablet 1,000 mg PO Q8H PRN PRN (Reason: pain) Patient Comments: PT STATES TAKES 2 TABS EVERY 8-12 HOURS NEEDED atorvastatin 80 MG tablet 80 mg PO QHS 30 Days Qty: 30 2RF clopidogrel 75 mg tablet 75 mg PO DAILY 30 Days Qty: 30 2RF Patient Comments: TAKE 1 TABLET BY MOUTH ONCE DAILY aspirin 81 mg tablet,delayed release (DR/EC) 81 mg PO DAILY 30 Days Qty: 30 2RF metformin 1,000 mg tablet 1,000 mg PO BID 30 Days Qty: 60 2RF levothyroxine 200 mcg tablet 200 mcg PO DAILY 30 Days Qty: 30 3RF metoprolol tartrate 25 mg tablet 25 mg PO Q12H 30 Days Qty: 60 2RF Primary Care Provider: Care Physician,No Primary [facility] - Print Language: Micronesian Disposition Disposition: Acute Care Hospital [facility]
[2024-01-06] MEDS: Heparin Injection (Vial) 5,000 UNIT/ML VIAL 4000 UNIT IV (21:41)
[2024-01-06] MEDS: HEPARIN/D5w 25,000 UNITS 25,000 UNITS/250 ML IV.SOLN. 10 UNITS CONT INF (21:44)
[2024-01-06] MEDS: Aspirin 81 MG TAB.CHEW 324 MG PO (21:47)
--- NOTE | 2024-01-06 22:00 | RAD_ITS ---
STUDY: X-RAY CHEST REASON FOR EXAM: Female, 58 years old. chest pain TECHNIQUE: Single frontal view of the chest. COMPARISON: CT chest December 25, 2022. Chest x-ray same day. FINDINGS: Subsegmental atelectasis or scarring left base. There is no demonstrated pleural abnormality. Normal size heart. Normal mediastinum and regis. Normal visualized pulmonary arteries. Normal visualized aortic arch and descending thoracic aorta. Normal visualized thoracic spine. Normal visualized ribs, clavicles, and shoulders. There is no demonstrated abnormality of the visualized soft tissue structures of the upper abdomen. RAD/Chest 1 View (Portable) IMPRESSION: Scarring left base. No acute disease. Electronically Signed: Alfredo Daigle MD at 22:41 EDT ,
[2024-01-06 22:09] LABS: Absolute Lymphocyte Count 8.29 X10^3/uL (0.83-4.51); Absolute Neutrophil Count 5.5 X10^3/uL (2.0-7.7); Basophil% 0.7 % (0-1); Eosinophil# 0.15 X10^3/uL; Hematocrit 43.7 % (37-47); Hemoglobin 14.6 g/dL (12.0-15.0); Lymphocyte # 8.29 X10^3/ul (0.83-4.51); Lymphocyte % 56.5 % (19-41); Mean Corp Hgb Conc 33.4 g/dL (32-36); Mean Corpuscular Hgb 29.4 pg (27.0-32.0); Mean Corpuscular Volume 87.9 fL (81-99); Mean Platelet Vol. 11.3 fl (6.2-12.0); Monocyte# 0.61 X10^3/uL; Monocyte% 4.2 % (0-10); NRBC Flagged by Analyzer 0 % (0-5); Neutrophil # 5.46 X10^3/uL (2.7-7.7); Neutrophil % 37.1 % (47-70); POSITIVE DIFFERENTIAL YES; POSITIVE MORPHOLOGY YES; Platelet Count 217 K/mm3 (150-450); RBC Distribution Width CV 14.2 % (11.6-14.6); RBC Distribution Width SD 45.3 fl (35.1-43.9); Red Blood Count 4.97 M/mm3 (4.2-5.4); White Blood Count 14.7 K/mm3 (4.4-11.0)
[2024-01-06 22:10] LABS: Differential Indicated SCAN CRITERIA MET
[2024-01-06 22:18] LABS: International Normalized Ratio 1.1; Partial Thromboplast Time 30.6 Seconds (24.1-36.2); Prothrombin Time (Protime)PT. 13.8 SECONDS (11.7-14.9)
[2024-01-06 22:32] LABS: Anion Gap 6 (5-15); BUN 18 mg/dL (7-18); BUN/Creat Ratio 15.9 RATIO (10-20); Calcium,Total 8.8 mg/dL (8.5-10.1); Chloride 103 mmol/L (98-107); Creatinine, Serum 1.13 mg/dL (0.55-1.02); EST Glomerular Filtration Rate 53 mL/min (>60); Est Glom Filt Rate - Afr Amer 64 mL/min (>60); Estimated Creatinine Clearance 65.26 ml/min; Glucose 209 mg/dL (74-106); Potassium 3.1 mmol/L (3.5-5.1); Sodium Level 138 mmol/L (136-145); Troponin-I HS (w/2H Reflex) 137 pg/mL (3.0-54.0)
[2024-01-06 22:36] LABS: Differential Comment SCANNED
[2024-01-06] MEDS: Nitroglycerin Infusion 250 ML 3 MG CONT INF (22:37)
--- NOTE | 2024-01-06 22:39 | HP.PCM.HOS_ITS ---
HPI - General General Date of Admission: 01/06/24 Date of Service: 01/06/24 Chief Complaint: Chest pain HPI Narrative The patient is a 58 y/o F w/ PMHx: CKD stage II based on GFR trending, CAD s/p most recent NSTEMI w/ PCI RCA and RPL 12/2022 with prior PCI to this in 2016 with PCI LAD, LCx, HTN, HLD, Hypothyroidism, Diabetes mellitus type II, Overweight, Tobacco use who presents to the [facility] ED on 01/06/2024 with history of 3 episodes of exertional chest discomfort on day of presentation in addition to at least 1 episode within the last 2 to 3 days occurring with minimal exertion lasting approximately 15 to 20 minutes describing the episode as pressure and viselike sensation around her chest in the substernal and left chest region with associated nausea, dyspnea and diaphoresis which she reports similar to the episode and symptoms she had 01/14/2023 with [place] at that time prompting eventual ED evaluation. She notes that when her chest pain has been occurring the pain she notes was rated at approximately 5-6 out of 10 in severity, currently now down to 2 out of 10 in severity following nitroglycerin initiation and feels as though her chest is less tight. She does report compliance with her cardiac medications. She has unfortunately continued to smoke. Workup in the ED included T96.9, heart rate 74, BP 133/85, respiratory rate 20, 97% on room air, CBC with WBC 14.7, hemoglobin 14.6, platelet 217 with left shift, unremarkable coags, BMP with potassium 3.1, BUN/creatinine 18/1.13, GFR 53, glucose 209, troponin 137, chest x-ray no acute cardiopulmonary finding, EKG with sinus rhythm with new ST-T wave changes in the anterior leads compared to 12/2022 with follow-up EKG with similarly sinus rhythm with first-degree AV block with now RR prime in V1 not noted on prior EKG with no significant difference in the ST-T wave changes in the anterior leads compared to EKG initially performed. In the ED patient ministered full-strength aspirin, heparin bolus and drip as well as nitroglycerin drip initiated. ED discussed case with regional refrigerated cdl truck driver on-call Dr. Tovar. [facility] Medical History CKD (chronic kidney disease), stage II Diabetes mellitus, type 2 Tobacco use Hyperlipidemia Hypothyroidism Atherosclerotic heart disease of [place] coronary artery without angina pectoris Hypertension Home Medications ?Medication ?Instructions ?Recorded ?Last Taken ?Type nitroglycerin 0.4 mg sublingual 0.4 mg sublingual Q5M PRN 08/19/18 12/20/22 Rx tablet Cardiac/Chest Pain #30 tabs cholecalciferol (vitamin D3) 25 4,000 unit PO DAILY 10/16/19 12/24/22 History mcg (1,000 unit) tablet acetaminophen 500 mg tablet 1,000 mg PO Q8H PRN PRN pain 12/25/22 12/18/22 History aspirin 81 mg tablet,delayed 81 mg PO DAILY 30 days #30 tabs 12/27/22 Unknown Rx release atorvastatin 80 mg tablet 80 mg PO QHS 30 days #30 tabs 12/27/22 Unknown Rx clopidogrel 75 mg tablet 75 mg PO DAILY 30 days #30 tabs 12/27/22 Unknown Rx levothyroxine 200 mcg tablet 200 mcg PO DAILY THYROID 30 days 12/27/22 Unknown Rx #30 tabs metformin 1,000 mg tablet 1,000 mg PO BID 30 days #60 tabs 12/27/22 Unknown Rx metoprolol tartrate 25 mg tablet 25 mg PO Q12H 30 days #60 tabs 12/27/22 Unknown Rx Allergy/AdvReac Type Severity Reaction Status Date / Time codeine Allergy Hives Verified 01/06/24 21:07 hydromorphone HCl (From Allergy Chest Verified 01/06/24 21:07 Dilaudid) tightness lisinopril Allergy Other Verified 01/06/24 21:07 tree and shrub pollen Allergy NEEDS Verified 01/06/24 21:07 FOLLOW-UP Family History Father Cancer Hodgkins Heart disease Mother Hypertension Surgical History History of coronary artery stent placement (12/26/22) History of partial hysterectomy S/P appendectomy Stented coronary artery (~2015) Social History (Updated 01/06/24 @ 23:[address] Negra Cheung MD) household members: spouse Smoking Status: Current every day smoker tobacco type: cigarettes Smoking packs per day: 0.5 Smoking cigarettes per day: 10.0 alcohol intake: current alcohol intake frequency: holidays/special occasions only substance use type: does not use what type of physical activity do you participate in: other ROS ROS Narrative Admission Review of Systems: CONSTITUTIONAL: No weight loss, fever, chills, + weakness or fatigue. HEENT: Eyes: No visual loss, blurred vision, double vision or yellow sclerae. Ears, Nose, Throat: No hearing loss, sneezing, congestion, runny nose or sore throat. SKIN: No rash or itching, lesions, wounds. CARDIOVASCULAR: + Chest pain. Palpitations, edema, orthopnea, syncopal events. RESPIRATORY: + Dyspnea. Cough or sputum, wheezing, hemoptysis. GASTROINTESTINAL: + Anorexia, nausea. No vomiting, diarrhea, abdominal pain, melena, BRBPR. GENITOURINARY: No dysuria, frequency, urgency or retention. NEUROLOGICAL: No headache, dizziness, syncope, paralysis, ataxia, numbness or tingling in the extremities, focal weakness, change in bowel or bladder control, seizure. MUSCULOSKELETAL: + muscle, back pain, joint pain or stiffness. HEMATOLOGIC: No anemia. + Easy bleeding/bruising. LYMPHATICS: No enlarged nodes. No history of splenectomy. PSYCHIATRIC: No history of depression or anxiety. ENDOCRINOLOGIC: + reports of sweating, cold or heat intolerance. No polyuria or polydipsia. ALLERGIES: + History of hives. Vital Signs Vital Signs Vital Signs: 01/06/24 21:05 01/06/24 21:23 01/06/24 21:35 Temperature 96.9 F L Temperature Source Temporal Pulse Rate 74 71 Respiratory Rate 20 H 16 Respiratory Effort Blood Pressure 133/85 H Blood Pressure Mean 101 Pulse Ox 97 95 Oxygen Delivery Method Room Air Room Air 01/06/24 21:45 01/06/24 21:49 01/06/24 21:53 Temperature 97.4 F L Temperature Source Pulse Rate 66 66 Respiratory Rate 20 H 16 Respiratory Effort Normal Blood Pressure 131/84 H 131/84 H Blood Pressure Mean 97 99 Pulse Ox 92 95 Oxygen Delivery Method 01/06/24 22:00 01/06/24 22:15 Temperature Temperature Source Pulse Rate 65 64 Respiratory Rate 15 16 Respiratory Effort Blood Pressure 120/102 H 138/85 H Blood Pressure Mean 111 101 Pulse Ox 96 93 Oxygen Delivery Method Weight Weight: 193 lb 5.526 oz Body Mass Index (BMI) 27.7 Physical Exam Narrative Physical Examination: General: Awake, alert, oriented x 3 and cooperative, seated upright in the ED bed, notes chest discomfort and tightness is improving, currently rates it 2 out of 10 in severity. Skin: Normal color, normal turgor, no icterus, no cyanosis. HEENT: AT/NC, EOMI, PERRLA, mildly dry MM, no carotid bruits or JVD noted, mild scleral injection bilaterally. Lungs: Mildly diminished, greater bases, poor effort, no rales, ronchi or wheezing. Heart: Regular rate and rhythm; no gallop, rub audible. Abdomen: Soft, overweight, NTTP, ND, mildly hyperactive BS, no HSM. Extremities: No cyanosis, clubbing, or edema. Neurological: Patient awake, alert, oriented as noted, cognitive function intact; pupils equally reactive to light and accommodation, cranial nerves grossly normal, moving all 4 extremities, no focal deficits, strength moderately to severely globally [place] Delia secondary to acute presentation complaints. Psychiatric: Affect appears fatigued, normal, no acute evidence of depressive or anxiety feelings. Results Lab / Micro Data 01/06/24 21:15 01/06/24 21:15 Labs: Laboratory Results - last 24 hr 01/06/24 21:15: WBC 14.7 H, RBC 4.97, Hgb 14.6, Hct 43.7, MCV 87.9, MCH 29.4, MCHC 33.4, RDW Std Deviation 45.3 H, RDW Coeff of Rubens 14.2, Plt Count 217, MPV 11.3, Immature Gran % (Auto) 0.500, Neut % (Auto) 37.1 L, Lymph % (Auto) 56.5 H, [place] % (Auto) 4.2, Eos % (Auto) 1.0, Baso % (Auto) 0.7, Absolute Neuts (auto) 5.5, Absolute Lymphs (auto) 8.29 H, Nucleated RBC % 0, Differential Comment SCANNED, PT 13.8, INR 1.1, APTT 30.6, Sodium 138, Potassium 3.1 L, Chloride 103, Carbon Dioxide 29.0, Anion Gap 6, BUN 18, Creatinine 1.13 H, Estim Creat Clear Calc 65.26, Est GFR (MDRD) Af Amer 64, Est GFR (MDRD) Non-Af 53 L, BUN/Creatinine Ratio 15.9, Glucose 209 H, Calcium 8.8, Troponin I High Sens 137 H* Assessment & Plan Assessment/Plan (1) Abnormal EKG: (2) Non-ST elevation [place] (NSTEMI): PLAN: Plan The patient is a 58 y/o F w/ PMHx: CKD stage II based on GFR trending, CAD s/p most recent NSTEMI w/ PCI RCA and RPL 12/2022 with prior PCI to this in 2016 with PCI LAD, LCx, HTN, HLD, Hypothyroidism, Diabetes mellitus type II, Overweight, Tobacco use who presents to the [facility] ED on 01/06/2024 with history of 3 episodes of exertional chest discomfort on day of presentation in addition to at least 1 episode within the last 2 to 3 days occurring with minimal exertion lasting approximately 15 to 20 minutes describing the episode as pressure and viselike sensation around her chest in the substernal and left chest region with associated nausea, dyspnea and diaphoresis which she reports similar to the episode and symptoms she had 01/14/2023 with [place] at that time prompting eventual ED evaluation. #1. Chest Pain with EKG changes w/ Acute NSTEMI: EKG with sinus rhythm with new ST-T wave changes in the anterior leads compared to 12/2022 with follow-up EKG with similarly sinus rhythm with first-degree AV block with now RR prime in V1 not noted on prior EKG with no significant difference in the ST-T wave changes in the anterior leads compared to EKG initially performed, CXR w/ no acute cardiopulmonary finding. Trop elevated, 137. Will admit to ICU given usage of nitroglycerin drip, maintain on a monitored bed, continue serial cardiac enzymes and EKGs. Obtain magnesium level upon admission. Continue heparin drip initiated in the ED. Continue medical management w/ asa, BB, statin w/ AM FLP. ECHO requested. Cardiology consulted, plan for cardiac catheterization. Maintain NPO after midnight on judicious IV fluids. ASA, NG. #2. Hypokalemia: Admission K+ 3.1, magnesium level requested, supplementation given, repeat level in AM. #3. Chronic Kidney Disease Stage II based on prior GFR trending however current GFR consistent with type III, unclear if acute renal insufficiency or worsening renal disease: Admission BUN/Cr 18/1.13, GFR 53, previous GFR from trending however has been more consistent with type II CKD, baseline renal function previously more so 0.7-0.9, this is however remote and last noted lab check 12/27/2022 with creatinine 0.90 at that time, repeat BMP in AM to further elucidate. #4. CAD: Status post NSTEMI, s/p most recent NSTEMI w/ PCI RCA and RPL 12/2022 with prior PCI to this in 2016 with PCI LAD, LCx, will continue aspirin, Plavix, statin, metoprolol, not on NUVIA inhibitor/ARB per current list with noted allergy unclear exact etiology to lisinopril. #5. Diabetes mellitus type II with hyperglycemia: Hold oral home regimen, continue home insulin regimen, ADA diet with n.p.o. status after midnight for cardiac catheterization consideration, HgBA1c will be requested, nutrition consulted for nutrition and teaching, accu checks w/ ISS. #6. Hypertension: Continue home regimen including metoprolol, NG drip as noted, PRN hydralazine. #7. Hyperlipidemia: Continue home statin regimen. AM FLP. #8. Hypothyroidism: We will continue patient on levothyroxine regimen. #9. Tobacco Abuse: Encouraged cessation, inpatient consultation per RT, NR if desired. #10. Overweight: Weight loss and lifestyle changes encouraged. #11. DVT prophylaxis: Will maintain on heparin drip. #12. CODE status: Patient HCPOA and living will are not in place but she notes her would be her medical decision-maker if necessary. Discussed CODE status at length including difference between FULL code, DNR-CCA and DNR-CC status. Following discussions about the differences in these status, requested Full Code status. Advanced Care Planning Face to Face Time: 16 minutes. Charges/Coding Visit Charges Inpatient E&M: 19641 Init Hosp L3 Procedures Hospitalists Procedures: 50728 Advncd Care Plan 30 Min
--- NOTE | 2024-01-06 22:50 | EKG12_ITS ---
Test Reason : CP Blood Pressure : / mmHG Vent. Rate : 060 BPM Atrial Rate : 060 BPM P-R Int : 212 ms QRS Dur : 094 ms QT Int : 446 ms P-R-T Axes : 016 -11 068 degrees QTc Int : 446 ms Sinus rhythm with 1st degree A-V block RSR' or QR pattern in V1 suggests right ventricular conduction delay Inferior infarct , age undetermined ST & T wave abnormality, consider anterior ischemia Abnormal ECG Confirmed by BISI DELONG, KAMI ([id number]), newspaper editor managing HOWARD HENAO ([id number]) on 01/07/2024 9:50:14 AM Referred By: ADRIANA Confirmed By:KAMI MATHEWS MD
[2024-01-06 23:21] LABS: Magnesium 1.9 mg/dL (1.6-2.6)
[2024-01-06] MEDS: 0.9% Normal Saline (1000mL) 1,000 ML 100 ML IV (23:57)
[2024-01-07] VITALS (49 sets, daily range): BP systolic 91–144; BP diastolic 65–86; PULSE 52–68; RESP 12–21; TEMP 36.1–36.5; O2SAT 90–96
[2024-01-07 00:01] LABS: Reflex Troponin-HS? (from REC) Y
[2024-01-07] MEDS: Potassium Chloride Oral Tablet 20 MEQ 40 MEQ PO (00:09)
[2024-01-07 00:45] LABS: Troponin-I HS 138 pg/mL (3.0-54.0)
[2024-01-07 05:43] LABS: Absolute Lymphocyte Count 7.73 X10^3/uL (0.83-4.51); Absolute Neutrophil Count 4.8 X10^3/uL (2.0-7.7); Basophil# 0.07 X10^3/uL; Basophil% 0.5 % (0-1); Eosinophil# 0.19 X10^3/uL; Eosinophils% 1.4 % (0-5); Hematocrit 38.8 % (37-47); Hemoglobin 12.9 g/dL (12.0-15.0); Lymphocyte # 7.73 X10^3/ul (0.83-4.51); Lymphocyte % 57.9 % (19-41); Mean Corp Hgb Conc 33.2 g/dL (32-36); Mean Corpuscular Hgb 29.7 pg (27.0-32.0); Mean Corpuscular Volume 89.4 fL (81-99); Mean Platelet Vol. 10.7 fl (6.2-12.0); Monocyte# 0.53 X10^3/uL; NRBC Flagged by Analyzer 0 % (0-5); Neutrophil # 4.76 X10^3/uL (2.7-7.7); Neutrophil % 35.8 % (47-70); POSITIVE DIFFERENTIAL YES; POSITIVE MORPHOLOGY YES; Platelet Count 173 K/mm3 (150-450); RBC Distribution Width CV 14.3 % (11.6-14.6); RBC Distribution Width SD 45.9 fl (35.1-43.9); Red Blood Count 4.34 M/mm3 (4.2-5.4); White Blood Count 13.3 K/mm3 (4.4-11.0)
[2024-01-07 05:53] LABS: Partial Thromboplast Time 50.6 Seconds (24.1-36.2)
--- NOTE | 2024-01-07 05:55 | ECHOD_ITS ---
Reason For Study: NSTEMI Procedure This was a 2D Doppler, Color Flow transthoracic echocardiogram. Exam performed portable in ICU/CCU. Left Ventricle Normal LV size. Mild concentric left ventricular hypertrophy. Left ventricular systolic function is normal. The left ventricular ejection fraction is 60 %. Stage 1 diastolic dysfunction. No regional wall motion abnormalities noted. Right Ventricle Normal RV size. Normal systolic function. Atria Normal left atrium. Normal right atrium. Mitral Valve Normal mitral valve. Tricuspid Valve Normal tricuspid valve. Aortic Valve Normal aortic valve. Pulmonic Valve Normal pulmonic valve. Great Vessels Normal aortic root. Pericardium/Pleural No pericardial effusion. MMode/2D Measurements & Calculations LVIDd: 4.1 cm IVSd: 1.2 cm Ao root diam: 3.4 cm LVIDs: 2.7 cm LVPWd: 1.3 cm RVDd: 3.1 cm FS: 33.7 % LAV(MOD-bp): 32.6 ml LVAd ap4: 26.0 cm2 SV(MOD-sp4): 39.6 ml LAV(MOD-bp) Indexed: 15.9 ml/m2 LVLd ap4: 8.7 cm LAV(MOD-sp2): 32.0 ml EDV(MOD-sp4): 63.7 ml LAV(MOD-sp4): 29.1 ml EDV(sp4-el): 65.4 ml LVAs ap4: 14.4 cm2 LVLs ap4: 7.3 cm ESV(MOD-sp4): 24.1 ml ESV(sp4-el): 24.2 ml EF(MOD-sp4): 62.2 % EF(sp4-el): 63.0 % SV(sp4-el): 41.2 ml LA A4 area: 14.0 cm2 LA dimension(2D): 2.8 cm RA A4 area: 12.4 cm2 TAPSE: 2.4 cm Time Measurements MV dec time: 0.32 sec Doppler Measurements & Calculations MV E max deven: 55.8 cm/sec Lat Peak E' Deven: 8.0 cm/sec Med Peak E' Deven: 7.7 cm/sec MV A max deven: 65.8 cm/sec E/E' lat: 7.0 E/E' med: 7.2 MV E/A: 0.85 Ao V2 max: 123.5 cm/sec LV V1 max: 95.3 cm/sec PA V2 max: 77.6 cm/sec Ao max P.1 mmHg LV V1 max P.6 mmHg ECHO/Echo Complete Interpretation Summary Normal LV size. Left ventricular systolic function is normal. The left ventricular ejection fraction is 60 %. Mild concentric left ventricular hypertrophy. Stage 1 diastolic dysfunction. Ordering Physician: Negra Cheung Performed By: [place], Jenni, RDCS
[2024-01-07 06:11] LABS: AST(SGOT) 12 U/L (15-37); Alanine Aminotransfer ALT/SGPT 12 U/L (13-56); Albumin, Serum 3.1 g/dL (3.2-5.0); Alkaline Phosphatase 58 U/L (45-117); Anion Gap 4 (5-15); BUN 14 mg/dL (7-18); BUN/Creat Ratio 15.6 RATIO (10-20); Calcium,Total 8.1 mg/dL (8.5-10.1); Chloride 108 mmol/L (98-107); Cholesterol 288 mg/dL (200); EST Glomerular Filtration Rate 68 mL/min (>60); Est Glom Filt Rate - Afr Amer 83 mL/min (>60); Estimated Creatinine Clearance 81.85 ml/min; Globulin 3.2 g/dL (2.2-4.2); Glucose 200 mg/dL (74-106); High Density Lipoprotein 28 mg/dL; Potassium 3.7 mmol/L (3.5-5.1); Protein, Total 6.3 g/dL (6.4-8.2); Sodium Level 138 mmol/L (136-145); Triglycerides 401 mg/dL
[2024-01-07 06:41] LABS: Differential Indicated SCAN CRITERIA MET
[2024-01-07 06:53] LABS: Differential Comment SCANNED
--- NOTE | 2024-01-07 07:49 | CON.PCM.CA_ITS ---
Assessment & Plan Assessment/Plan (1) Non-ST elevation [place] (NSTEMI): PLAN: Patient presents with a non-ST elevation myocardial infarction. Has had previous stents in the LAD as well as the right coronary artery. The plan will be to undergo a cardiac cath today to assess her coronary anatomy and depending on the findings further recommendations will be made. * Risk benefits alternatives explained to the patient who agrees to proceed. * * Addendum: Cardiac catheterization demonstrated the following completed at 9:50 AM. Distal 90% left main stenosis. Left anterior descending artery previously stented and severely diseased with moderate in-stent stenosis. Left circumflex artery which is subtotally occluded with right to left collaterals. Dominant right coronary artery with previously patent stent in the proximal RCA with about 30 to 40% in-stent stenosis, and 2 posterolateral vessels with 1 previously stented with mild in-stent stenosis. The posterior descending artery has a high-grade ostial stenosis noted. Preserved left ventricular systolic function. Based on the above angiographic findings I will recommend transfer to a tertiary care facility for coronary artery bypass surgery. HPI Consult Data Date of Consult: 01/07/24 HPI Narrative HPI Narrative: EMERITA OSPINA, is a 58 F who presents to the emergency room with chest discomfort. She describes this as a heaviness radiating to her left arm as well. She has a history of known coronary artery disease status post PCI of the LAD and circumflex in 2015. She also has a history of hypertension hyperlipidemia hypothyroidism and diabetes mellitus. In December 2022 she presented with chest discomfort, COVID and was evaluated and discharged and came back for PCI of the right proximal coronary artery as well as the posterolateral vessel. The circumflex artery was noted to be totally occluded and the left anterior descending artery had moderate disease in the previously stented vessel. She presented this this time with chest discomfort as well was seen in the emergency room blood pressures were noted to be normal EKG demonstrated normal sinus rhythm with a first-degree AV block and no acute changes. She was started on intravenous heparin, aspirin, nitroglycerin and admitted to the telemetry ICU unit. This morning she appears to have minimal chest discomfort. There was mild cardiac elevation only and in no EKG changes. [facility] Medical History (Updated 01/07/24 @ 08:[address] Tacho Person MD) CKD (chronic kidney disease), stage II Diabetes mellitus, type 2 Tobacco use Hyperlipidemia Hypothyroidism Atherosclerotic heart disease of [place] coronary artery without angina pectoris Hypertension Home Medications ?Medication ?Instructions ?Recorded ?Last Taken ?Type nitroglycerin 0.4 mg sublingual 0.4 mg sublingual Q5M PRN 08/19/18 12/20/22 Rx tablet Cardiac/Chest Pain #30 tabs cholecalciferol (vitamin D3) 25 4,000 unit PO DAILY 10/16/19 12/24/22 History mcg (1,000 unit) tablet acetaminophen 500 mg tablet 1,000 mg PO Q8H PRN PRN pain 12/25/22 12/18/22 History aspirin 81 mg tablet,delayed 81 mg PO DAILY 30 days #30 tabs 12/27/22 Unknown Rx release atorvastatin 80 mg tablet 80 mg PO QHS 30 days #30 tabs 12/27/22 Unknown Rx clopidogrel 75 mg tablet 75 mg PO DAILY 30 days #30 tabs 12/27/22 Unknown Rx levothyroxine 200 mcg tablet 200 mcg PO DAILY THYROID 30 days 12/27/22 Unknown Rx #30 tabs metformin 1,000 mg tablet 1,000 mg PO BID 30 days #60 tabs 12/27/22 Unknown Rx metoprolol tartrate 25 mg tablet 25 mg PO Q12H 30 days #60 tabs 12/27/22 Unknown Rx Allergy/AdvReac Type Severity Reaction Status Date / Time codeine Allergy Hives Verified 01/06/24 21:07 hydromorphone HCl (From Allergy Chest Verified 01/06/24 21:07 Dilaudid) tightness lisinopril Allergy Other Verified 01/06/24 21:07 tree and shrub pollen Allergy NEEDS Verified 01/06/24 21:07 FOLLOW-UP Family History Father Cancer Hodgkins Heart disease Mother Hypertension Surgical History History of coronary artery stent placement (12/26/22) History of partial hysterectomy S/P appendectomy Stented coronary artery (~2015) Social History household members: spouse Smoking Status: Current every day smoker tobacco type: cigarettes Smoking packs per day: 0.5 Smoking cigarettes per day: 10.0 alcohol intake: current alcohol intake frequency: holidays/special occasions only substance use type: does not use what type of physical activity do you participate in: other ROS Constitutional Constitutional: Denies fever(s) or weight loss Eyes Eyes: Reports systems reviewed and no addt'l complaints, except as documented ENT HEENT: Reports systems reviewed and no addt'l complaints, except as documented Cardiovascular Cardiovascular: Denies chest pain at rest, chest pain with activity, dyspnea at rest, dyspnea on exertion, edema, palpitations or paroxysmal nocturnal dyspnea Respiratory/Chest Respiratory/Chest: Denies dyspnea on exertion, productive cough, shortness of breath at rest or shortness of breath with exertion Gastrointestinal Gastrointestinal: Denies change in bowel habits, nausea, vomiting or weight changes Genitourinary Genitourinary: Denies difficulty urinating Musculoskeletal Musculoskeletal: Denies joint stiffness or muscle weakness Integumentary Integumentary: Denies lesions Neurologic Neurologic: Denies dizziness or syncope Psychiatric Psychiatric: Denies anxiety Endocrine Endocrinology: Denies excessive sweating or fatigue Hematologic/Lymphatic Hematologic/Lymphatic: Denies anemia Allergic/Immunologic Allergic/Immunologic: Denies seasonal rhinorrhea Physical Exam Const alert, oriented x3 and no apparent distress General Appearance: cooperative HEENT hearing grossly normal bilaterally Head and Scalp: atraumatic Eyes EOMs intact bilaterally Neck General: normal visual inspection Chest inspection of chest normal and palpation of chest normal Resp normal respiratory effort Auscultation: clear to auscultation bilaterally Cardio regular rate, regular rhythm, S1 normal heart sound and S2 normal heart sound Jugular Venous Distention: JVD GI normal to inspection, nondistended, normoactive bowel sounds Extremity normal capillary refill and no pedal edema Peripheral Pulses: Yes pulses 2+ throughout and femoral pulses present Skin no rashes or lesions noted Neuro oriented x3 and CN's II-XII intact bilaterally Psych Appearance: grossly normal and appropriate Risk Stratification Risk Stratification Applicable: Yes Age >/= 65: No >/= 3 CAD Risk Factors (HTN, HLD, DM, family hx of CAD, or current smoker): Yes Aspirin Use in the Past 7 Days: Yes Severe Angina (>/= episodes in 24 hours): No EKG ST Changes >/= 0.5mm: No Positive Cardiac Marker: Yes NIKKI Risk Stratification Score: 3 NIKKI % Risk: 13% Risk Objective Data Vital Signs: Vital Signs Temp Pulse Resp BP Pulse Ox O2 Del Method O2 Flow Rate 96.9 F L 61 16 109/66 94 Room Air 2 01/06/24 23:45 01/07/24 06:54 01/07/24 04:00 01/07/24 07:00 01/07/24 04:00 01/07/24 05:39 01/07/24 04:00 Oxygen Flow Rate (L/min) 2 Oxygen Delivery Method Room Air Weight: 192 lb 14.472 oz Body Mass Index (BMI) 27.6 Intake & Output: Intake and Output for Last 24 Hours 01/05/24 01/06/24 01/07/24 23:59 23:59 23:59 Intake Total 23.57 / .32 185.58 / 185.58 Balance 23.57 / .32 185.58 / 185.58 Lab / Micro Data 01/07/24 05:33 01/07/24 05:33 Labs: Laboratory Results - last 24 hr 01/06/24 21:15: WBC 14.7 H, RBC 4.97, Hgb 14.6, Hct 43.7, MCV 87.9, MCH 29.4, MCHC 33.4, RDW Std Deviation 45.3 H, RDW Coeff of Rubens 14.2, Plt Count 217, MPV 11.3, Immature Gran % (Auto) 0.500, Neut % (Auto) 37.1 L, Lymph % (Auto) 56.5 H, [place] % (Auto) 4.2, Eos % (Auto) 1.0, Baso % (Auto) 0.7, Absolute Neuts (auto) 5.5, Absolute Lymphs (auto) 8.29 H, Nucleated RBC % 0, Differential Comment SCANNED, PT 13.8, INR 1.1, APTT 30.6, Sodium 138, Potassium 3.1 L, Chloride 103, Carbon Dioxide 29.0, Anion Gap 6, BUN 18, Creatinine 1.13 H, Estim Creat Clear Calc 65.26, Est GFR (MDRD) Af Amer 64, Est GFR (MDRD) Non-Af 53 L, BUN/Creatinine Ratio 15.9, Glucose 209 H, Calcium 8.8, Magnesium 1.9, Troponin I High Sens 137 H* 01/07/24 00:01: Troponin I High Sens 138 H* 01/07/24 05:33: WBC 13.3 H, RBC 4.34, Hgb 12.9, Hct 38.8, MCV 89.4, MCH 29.7, MCHC 33.2, RDW Std Deviation 45.9 H, RDW Coeff of Rub[place] 14.3, Plt Count 173, MPV 10.7, Immature Gran % (Auto) 0.400, Neut % (Auto) 35.8 L, Lymph % (Auto) 57.9 H, [place] % (Auto) 4.0, Eos % (Auto) 1.4, Baso % (Auto) 0.5, Absolute Neuts (auto) 4.8, Absolute Lymphs (auto) 7.73 H, Nucleated RBC % 0, Differential Comment SCANNED, APTT 50.6 H, Sodium 138, Potassium 3.7, Chloride 108 H, Carbon Dioxide 26.0, Anion Gap 4 L, BUN 14, Creatinine 0.90, Estim Creat Clear Calc 81.85, Est GFR (MDRD) Af Amer 83, Est GFR (MDRD) Non-Af 68, BUN/Creatinine Ratio 15.6, G lucose 200 H, Calcium 8.1 L, Total Bilirubin 0.30, AST 12 L, ALT 12 L, Alkaline Phosphatase 58, Total Protein 6.3 L, Albumin 3.1 L, Globulin 3.2, Albumin/Globulin Ratio 1.0, Triglycerides 401 H, Cholesterol 288 H, LDL Cholesterol TNP, VLDL Cholesterol TNP, HDL Cholesterol 28 L Cardiology Labs/Tests 01/06/24 21:15: WBC 14.7 H, RBC 4.97, Hgb 14.6, Hct 43.7, MCV 87.9, MCH 29.4, MCHC 33.4, Plt Count 217, MPV 11.3, Immature Gran % (Auto) 0.500, Neut % (Auto) 37.1 L, Lymph % (Auto) 56.5 H, [place] % (Auto) 4.2, Eos % (Auto) 1.0, Baso % (Auto) 0.7, Absolute Neuts (auto) 5.5, Nucleated RBC % 0, PT 13.8, INR 1.1, APTT 30.6, Sodium 138, Potassium 3.1 L, Chloride 103, Carbon Dioxide 29.0, Anion Gap 6, BUN 18, Creatinine 1.13 H, Est GFR (MDRD) Af Amer 64, Est GFR (MDRD) Non-Af 53 L, BUN/Creatinine Ratio 15.9, Glucose 209 H, Calcium 8.8, Magnesium 1.9 01/07/24 05:33: WBC 13.3 H, RBC 4.34, Hgb 12.9, Hct 38.8, MCV 89.4, MCH 29.7, MCHC 33.2, Plt Count 173, MPV 10.7, Immature Gran % (Auto) 0.400, Neut % (Auto) 35.8 L, Lymph % (Auto) 57.9 H, [place] % (Auto) 4.0, Eos % (Auto) 1.4, Baso % (Auto) 0.5, Absolute Neuts (auto) 4.8, Nucleated RBC % 0, APTT 50.6 H, Sodium 138, Potassium 3.7, Chloride 108 H, Carbon Dioxide 26.0, Anion Gap 4 L, BUN 14, Creatinine 0.90, Est GFR (MDRD) Af Amer 83, Est GFR (MDRD) Non-Af 68, BUN/Creatinine Ratio 15.6, Glucose 200 H, Calcium 8.1 L, Total Bilirubin 0.30, T riglycerides 401 H, Cholesterol 288 H, LDL Cholesterol TNP, VLDL Cholesterol TNP, HDL Cholesterol 28 L Rhythm: EKG: ECHO: Stress Test: Cardiac Cath: PCI: CT Surgery: Holter monitor: EPS: PPM: CXR: Chest CT Scan: Radiography Diagnostic Testing: Radiology Impression Chest X-Ray 01/06/24 22:00 IMPRESSION: Scarring left base. No acute disease. Electronically Signed: Alfredo Daigle MD at 22:41 EDT ,
[2024-01-07] MEDS: Aspirin E.C. 81 MG Tablet PO (07:53)
[2024-01-07] MEDS: Clopidogrel Bisulfate 75 MG Tablet PO (07:53)
[2024-01-07 08:14] LABS: Troponin-I HS 76 pg/mL (3.0-54.0)
[2024-01-07 08:15] LABS: Bedside Glucose 212 mg/dL (74-106)
[2024-01-07] MEDS: 0.9% Normal Saline (1000mL) 1,000 ML 15 ML IV (09:02)
--- NOTE | 2024-01-07 09:09 | NURSING ---
Patient off floor to collaborative teacher at this time
--- NOTE | 2024-01-07 09:11 | PCM.PN.HOSP ---
Subjective Subjective Doing well, no major issues overnight, has minimal chest pain currently Objective Data Objective Data Vital Signs: Vital Signs Temp Pulse Resp BP Pulse Ox O2 Del Method O2 Flow Rate 97.7 F L 58 L 17 121/73 H 94 Room Air 2 01/07/24 08:00 01/07/24 09:00 01/07/24 09:00 01/07/24 09:00 01/07/24 09:00 01/07/24 09:00 01/07/24 04:00 Oxygen Flow Rate (L/min) 2 Oxygen Delivery Method Room Air Weight: 192 lb 14.472 oz Body Mass Index (BMI) 27.6 Intake & Output: Intake and Output for Last 24 Hours 01/06/24 01/07/24 01/08/24 03:59 03:59 03:59 Intake Total 33.32 / 36.32 201.26 / 201.26 Balance 33.32 / 36.32 201.26 / 201.26 Lab / Micro Data 01/07/24 05:33 01/07/24 05:33 Labs: Laboratory Results - last 24 hr 01/06/24 21:15: WBC 14.7 H, RBC 4.97, Hgb 14.6, Hct 43.7, MCV 87.9, MCH 29.4, MCHC 33.4, RDW Std Deviation 45.3 H, RDW Coeff of Rubens 14.2, Plt Count 217, MPV 11.3, Immature Gran % (Auto) 0.500, Neut % (Auto) 37.1 L, Lymph % (Auto) 56.5 H, [place] % (Auto) 4.2, Eos % (Auto) 1.0, Baso % (Auto) 0.7, Absolute Neuts (auto) 5.5, Absolute Lymphs (auto) 8.29 H, Nucleated RBC % 0, Differential Comment SCANNED, PT 13.8, INR 1.1, APTT 30.6, Sodium 138, Potassium 3.1 L, Chloride 103, Carbon Dioxide 29.0, Anion Gap 6, BUN 18, Creatinine 1.13 H, Estim Creat Clear Calc 65.26, Est GFR (MDRD) Af Amer 64, Est GFR (MDRD) Non-Af 53 L, BUN/Creatinine Ratio 15.9, Glucose 209 H, Calcium 8.8, Magnesium 1.9, Troponin I High Sens 137 H* 01/07/24 00:01: Troponin I High Sens 138 H* 01/07/24 05:33: WBC 13.3 H, RBC 4.34, Hgb 12.9, Hct 38.8, MCV 89.4, MCH 29.7, MCHC 33.2, RDW Std Deviation 45.9 H, RDW Coeff of Rubens 14.3, Plt Count 173, MPV 10.7, Immature Gran % (Auto) 0.400, Neut % (Auto) 35.8 L, Lymph % (Auto) 57.9 H, [place] % (Auto) 4.0, Eos % (Auto) 1.4, Baso % (Auto) 0.5, Absolute Neuts (auto) 4.8, Absolute Lymphs (auto) 7.73 H, Nucleated RBC % 0, Differential Comment SCANNED, APTT 50.6 H, Sodium 138, Potassium 3.7, Chloride 108 H, Carbon Dioxide 26.0, Anion Gap 4 L, BUN 14, Creatinine 0.90, Estim Creat Clear Calc 81.85, Est GFR (MDRD) Af Amer 83, Est GFR (MDRD) Non-Af 68, BUN/Creatinine Ratio 15.6, Glucose 200 H, Calcium 8.1 L, Total Bilirubin 0.30, AST 12 L, ALT 12 L, Alkaline Phosphatase 58, Total Protein 6.3 L, Albumin 3.1 L, Globulin 3.2, Albumin/Globulin Ratio 1.0, Triglycerides 401 H, Cholesterol 288 H, LDL Cholesterol TNP, VLDL Cholesterol TNP, HDL Cholesterol 28 L 01/07/24 07:45: Troponin I High Sens 76 H 01/07/24 07:51: POC Glucose 212 H Radiography Diagnostic Testing: Radiology Impression Chest X-Ray 01/06/24 22:00 IMPRESSION: Scarring left base. No acute disease. Electronically Signed: Alfredo Daigle MD at 22:41 EDT , Physical Exam Narrative General: Alert, Oriented x3, Cooperative, No apparent distress HEENT: Atraumatic, PERRLA, EOMI, Normocephalic Oral: Moist Mucosa Neck: Supple, No JVD Lungs: Diminished, Normal air movement, No rhonchi, No wheeze, No rales Cardiovascular: Regular rate, Regular Rhythm, Normal S1, Normal S2, No murmurs Abdomen: Soft, Non Tender, Non-Distended, No Hepato-splenomegaly Extremities: No edema, Capillary Refill Less than 3 Seconds Skin: No rashes, No breakdown Musculoskeletal: No Tenderness to Palpation of Joints or Extremities Neurological: No focal neurological deficits, Motor Exam 5/5 strength throughout, Sensory exam intact to light touch and pain Psych/Mental Status: Normal Affect, Appropriate Assessment & Plan Assessment/Plan (1) Abnormal EKG: (2) Non-ST elevation [place] (NSTEMI): PLAN: Plan 1. Non-STEMI/CAD status post stents/essential HTN/HLD ? Appreciate cardiology's assistance, plan for heart cath today ? Echo pending ? Continue with blood pressure medications ? Will monitor make adjustments as necessary ? She is already had multiple stents will continue with aspirin and Plavix as well as her current statin medication ? Encouraged tobacco cessation 2. DM2 ? Will hold her home medications ? Sliding scale insulin ? Accu-Cheks ACHS ? Will monitor make adjustments as necessary ? A1c is pending 3. Hypothyroidism ? Stable ? Continue with Synthroid DVT: Heparin drip Charges/Coding Visit Charges Inpatient E&M: 57669 Subs Hosp L2
[2024-01-07 09:38] LABS: Hemoglobin A1c 7.1 % (3.8-5.6)
--- NOTE | 2024-01-07 09:49 | CASEMGMT ---
Tertiary facilities in-network with patient's insurance: [facility], [facility] , [facility], [facility]
--- NOTE | 2024-01-07 09:51 | CASEMGMT ---
Insurance review for hospitals In-network with insurance if transfer is recommended is as follows: [facility], [facility], [place], [facility], [facility], [facility], [facility], [place], [facility] ([facility]), and . Fidelina Reeves, Discharge Planning Asst.
[2024-01-07] MEDS: Insulin Lispro 100 UNIT/ML INSULN.PEN SC ×3 (11:14→21:02)
[2024-01-07 11:29] LABS: Bedside Glucose 165 mg/dL (74-106)
--- NOTE | 2024-01-07 12:36 | CASEMGMT ---
Pt plans to transfer to [facility].
--- NOTE | 2024-01-07 17:13 | PCA ---
Called transfer line to check on a bed at 1710. Nurse said that they did not have a bed yet, and wasn't sure when they would. Maybe later tonight.
--- NOTE | 2024-01-07 17:17 | PCA ---
Called transfer line at 1710 and the transfer nurse said that stephanie garcia is on diversion. That she does not have a bed yet , but that she thinks that if not tonight tomorrow.
[2024-01-07 17:53] LABS: Bedside Glucose 203 mg/dL (74-106)
[2024-01-07] MEDS: Atorvastatin Calcium 80 MG Tablet PO (21:02)
[2024-01-07 23:36] LABS: Bedside Glucose 161 mg/dL (74-106)
--- NOTE | 2024-01-08 07:43 | PCM.DC.SUM ---
Providers Date of Admission: 01/06/24 Date of Discharge: 01/07/24 Primary Care Physician: Elsa Primary Care Phys Consultations 01/06/24 23:32 Consult: Cardiology Routine Consulting Provider: Ashwin Tovar Reason for Consult: Chest Pain, NSTEMI, EKG changes EMERGENT Consult: No MD Notified: Yes Date Notified: 01/06/24 Time Notified: 22:45 Method of Notification: ED Physician Initiated Reason For Visit: CHEST PAIN, NSTEMI, EKG CHANGES Diagnosis Discharge Diagnosis (1) Non-ST elevation OH (NSTEMI): Status: Acute Code(s): I21.4 - Non-ST elevation (NSTEMI) myocardial infarction Medications at Discharge Home Medications nitroglycerin 0.4 mg sublingual tablet 0.4 mg sublingual Q5M PRN Cardiac/Chest Pain #30 tabs 08/19/18 cholecalciferol (vitamin D3) 25 mcg (1,000 unit) tablet 4,000 unit PO DAILY 10/16/19 acetaminophen 500 mg tablet 1,000 mg PO Q8H PRN PRN pain 12/25/22 aspirin 81 mg tablet,delayed release 81 mg PO DAILY 30 days #30 tabs 12/27/22 atorvastatin 80 mg tablet 80 mg PO QHS 30 days #30 tabs 12/27/22 clopidogrel 75 mg tablet 75 mg PO DAILY 30 days #30 tabs 12/27/22 levothyroxine 200 mcg tablet 200 mcg PO DAILY THYROID 30 days #30 tabs 12/27/22 metformin 1,000 mg tablet 1,000 mg PO BID 30 days #60 tabs 12/27/22 metoprolol tartrate 25 mg tablet 25 mg PO Q12H 30 days #60 tabs 12/27/22 Hospital Course Operations None Procedures 2-D Echocardiogram and Cardiac catheterization Summary of Care Provided Minutes Spent on Discharge: 33 Hospital Course: Per HPI: The patient is a 58 y/o F w/ PMHx: CKD stage II based on GFR trending, CAD s/p most recent NSTEMI w/ PCI RCA and RPL 12/2022 with prior PCI to this in 2016 with PCI LAD, LCx, HTN, HLD, Hypothyroidism, Diabetes mellitus type II, Overweight, Tobacco use who presents to the [facility] ED on 01/06/2024 with history of 3 episodes of exertional chest discomfort on day of presentation in addition to at least 1 episode within the last 2 to 3 days occurring with minimal exertion lasting approximately 15 to 20 minutes describing the episode as pressure and viselike sensation around her chest in the substernal and left chest region with associated nausea, dyspnea and diaphoresis which she reports similar to the episode and symptoms she had 01/14/2023 with OH at that time prompting eventual ED evaluation. She notes that when her chest pain has been occurring the pain she notes was rated at approximately 5-6 out of 10 in severity, currently now down to 2 out of 10 in severity following nitroglycerin initiation and feels as though her chest is less tight. She does report compliance with her cardiac medications. She has unfortunately continued to smoke. Workup in the ED included T96.9, heart rate 74, BP 133/85, respiratory rate 20, 97% on room air, CBC with WBC 14.7, hemoglobin 14.6, platelet 217 with left shift, unremarkable coags, BMP with potassium 3.1, BUN/creatinine 18/1.13, GFR 53, glucose 209, troponin 137, chest x-ray no acute cardiopulmonary finding, EKG with sinus rhythm with new ST-T wave changes in the anterior leads compared to 12/2022 with follow-up EKG with similarly sinus rhythm with first-degree AV block with now RR prime in V1 not noted on prior EKG with no significant difference in the ST-T wave changes in the anterior leads compared to EKG initially performed. In the ED patient ministered full-strength aspirin, heparin bolus and drip as well as nitroglycerin drip initiated. ED discussed case with senior data warehouse developer on-call Dr. Tovar. Hospital Course: 1. Non-STEMI/CAD status post stent/essential HTN/HLD?58-year-old female with a previous extensive cardiac history presented to the hospital with chest pain requiring nitro drip as well as a heparin drip and admission to the ICU. She underwent echocardiogram which demonstrated an EF of 60% with stage I diastolic dysfunction and no significant wall motion abnormality. She then proceeded for cardiac catheterization which demonstrated a distal 90% left main stenosis, the LAD had previously been stented with severe disease and moderate in-stent stenosis in the left circumflex artery was subtotally occluded with the right to left collaterals, showed a dominant right coronary artery with previously patent stent in proximal RCA with about 30 to 40% in-stent stenosis. Given her previous cardiac history and the extent of her previous stenting cardiology recommended transfer for evaluation for coronary artery bypass surgery. I discussed this with her and she expressed understanding of the risks and benefits of transferring to a higher level of care. 2. Type 2 diabetes, hypothyroidism are chronic medical conditions which complicate her care. Her home medications were continued where appropriate Physical Exam Narrative General: Alert, Oriented x3, Cooperative, No apparent distress HEENT: Atraumatic, PERRLA, EOMI, Normocephalic Oral: Moist Mucosa Neck: Supple, No JVD Lungs: Diminished, Normal air movement, No rhonchi, No wheeze, No rales Cardiovascular: Regular rate, Regular Rhythm, Normal S1, Normal S2, No murmurs Abdomen: Soft, Non Tender, Non-Distended, No Hepato-splenomegaly Extremities: No edema, Capillary Refill Less than 3 Seconds Skin: No rashes, No breakdown Musculoskeletal: No Tenderness to Palpation of Joints or Extremities Neurological: No focal neurological deficits, Motor Exam 5/5 strength throughout, Sensory exam intact to light touch and pain Psych/Mental Status: Normal Affect, Appropriate Weight / BMI Weight Weight: 192 lb 14.472 oz Body Mass Index (BMI) 27.6 ABG / Lab / Microbiology Data 01/07/24 05:33 01/07/24 05:33 Laboratory: Laboratory Results - last 24 hr 01/07/24 05:33: Hemoglobin A1c 7.1 H 01/07/24 07:45: Troponin I High Sens 76 H 01/07/24 07:51: POC Glucose 212 H 01/07/24 11:10: POC Glucose 165 H 01/07/24 17:35: POC Glucose 203 H 01/07/24 21:01: POC Glucose 161 H Radiography Diagnostic Testing: Radiology Impression Echocardiogram 01/07/24 05:55 Interpretation Summary Normal LV size. Left ventricular systolic function is normal. The left ventricular ejection fraction is 60 %. Mild concentric left ventricular hypertrophy. Stage 1 diastolic dysfunction. Ordering Physician: Negra Cheung Performed By: Jenni Pantoja RDCS Meaningful Use Info Meaningful Use Meaningful Use Diagnoses (Choose all that apply): None applicable Ischemic Stroke Statin Dosing Therapy Reference: STATIN DOSE THERAPY REFERENCE: * Patients > 75 years receive moderate or high dose statin therapy. * Patients 75 years or YOUNGER should receive HIGH intensity statin dose unless contraindicated. You will be required to document reason for non-treatment if statin daily dose does not meet guidelines. HIGH DOSE STATIN THERAPY DAILY Atorvastatin > than or = to 40 mg Rosuvastatin > than or = to 20 mg Amlodipine + Atorvastatin > than or = to 2.5/40 mg Ezetimibe + Simvastatin 10/80 mg Simvastatin 80mg Discharge Plan Admission Admit Date/Time: 01/06/24 22:43 Attending Provider: Evaristo Salazar Primary Care Provider: Yesica Physician,Esla Primary Consulting Providers: Ashwin Tovar; Negra Cheung Discharge Orders/Prescriptions Prescriptions: No Action cholecalciferol (vitamin D3) 25 mcg (1,000 unit) tablet 4,000 unit PO DAILY nitroglycerin 0.4 MG tablet 0.4 mg sublingual Q5M PRN (Reason: Cardiac/Chest Pain) Qty: 30 0RF acetaminophen 500 mg tablet 1,000 mg PO Q8H PRN PRN (Reason: pain) Patient Comments: PT STATES TAKES 2 TABS EVERY 8-12 HOURS NEEDED atorvastatin 80 MG tablet 80 mg PO QHS 30 Days Qty: 30 2RF clopidogrel 75 mg tablet 75 mg PO DAILY 30 Days Qty: 30 2RF Patient Comments: TAKE 1 TABLET BY MOUTH ONCE DAILY aspirin 81 mg tablet,delayed release (DR/EC) 81 mg PO DAILY 30 Days Qty: 30 2RF metformin 1,000 mg tablet 1,000 mg PO BID 30 Days Qty: 60 2RF levothyroxine 200 mcg tablet 200 mcg PO DAILY 30 Days Qty: 30 3RF metoprolol tartrate 25 mg tablet 25 mg PO Q12H 30 Days Qty: 60 2RF Referrals / Follow Up: Care Physician,No Primary [Primary Care Provider] - [facility]Non[facility]Staff[facility] - Disposition Disposition (needs filled in before D/C Order can be placed): Acute Care Hospital Charges/Coding Visit Charges Inpatient E&M: 36481 Disch Hosp >30min
--- NOTE | 2024-01-14 08:19 | CL.D_ITS ---
Patient Name: EMERITA OSPINA Study Date: 01/07/2024 Performing: Tacho Person MD Ht: 70 inches 177.8 cm : 1965 Wt: 193.2 lbs 87.5 kg Age: 58 Gender: female BSA: 2.06 PROCEDURE(S) PERFORMED [id number]-([id number])LHC/COR/LV CLINICAL PROFILE AND INDICATIONS Indications: Worsening Angina Heart Failure: None Stress/Imaging Stress/Image Study Performed: No CAD Presentations: Unstable angina. CONCLUSIONS Severe distal left main disease with residual LAD disease with residual disease noted in the right coronary artery RECOMMENDATIONS Surgery consult for coronary revascularization DESCRIPTION OF PROCEDURE The patient arrived to the procedure lab. The risks and benefits of the procedure as well as a full description of our services here and current unavailability of surgical backup were fully explained to the patient and/or their significant other prior to the catheterization. The Timeout was completed, verifying the correct patient and procedure. The patient's procedural site was prepped and draped in the usual fashion. Local anesthetic was given subcutaneously to right radial region with Lidocaine 2%. Using a modified Seldinger technique, arterial access was obtained via the right radial artery, a 6Fr sheath was inserted. Left Coronary Artery selective angiography was performed in multiple views using a 5 Fr. 4.0 [place] catheter. Right Coronary Artery selective angiography was then performed in multiple views using a 5 Fr. 4.0 [place] catheter. Left Ventriculography was performed in [place] projection using a 5 Fr. [place] catheter. LV to AO pullback pressures were then recorded.The arterial sheath was pulled and a TR Band was applied for hemostasis w/ 11ml air CORONARY ANGIOGRAPHY DOMINANCE: Right Dominant LEFT HEART ASSESSMENT Left Ventricular Ejection Fraction: by LV Gram 60 % Normal LV wall motion LEFT MAIN: Distal left main with high-grade 90% stenosis LEFT ANTERIOR DESCENDING ARTERY: Previously stented vessel with moderate in-stent stenosis with diffuse distal disease CIRCUMFLEX ARTERY: Subtotal occlusion with right to left collaterals RIGHT CORONARY ARTERY: Dominant right coronary artery with previously placed stent with 30% in-stent stenosis in the proximal to mid segment. The vessel then continues and then gives of a posterior descending artery which is small and 2 large posterolateral vessels 1 of which has a previously placed stent with mild in-stent stenosis. COMPLICATIONS No Complications PROCEDURE MEDICATIONS Versed 1 mg IV Fentanyl 50 mcg IV Oxygen: 2 L/min via nasal cannula Heparin given IA 01/07/2024 09:30:17 Nitro glycerin 25mg / 250ml D5W @ 5 mcg/min continued from PCU 01/07/2024 09:20:20 Verapamil 2.5mg, Ntg 100mcgs, 3000 units of Heparin given IA 01/07/2024 09:30:17 SUMMARY OF HEMODYNAMIC DATA Time AIR REST ECG 09:21:56 AO 107/69 (85) SA 09:40:08 LV 105/3, 7 09:45:21 LV 114/3, 8 09:45:30 LV 110/3, 12 09:46:06 LV 109/4, 9 09:46:14 LVp 111/2, 9 09:46:18 AOp 0/-30 (42) 09:46:25 AIR REST 09:59:09 Signed By Tacho Person MD On 01/14/2024 08:18:33 Tacho Person MD
== END 2024-01-07 23:08 | disposition short-term general hospital (02) | DRG 281 ==
LOC: ED 22:37 → ICU 23:09
PROVIDERS: Admitting Provider Family Medicine; Emergency Provider Emergency Medicine; Visit Provider Family Medicine
DX: T82.855A Stenosis of coronary artery stent, initial encounter (principal); I21.4 Non-ST elevation (NSTEMI) myocardial infarction; I25.110 Atherosclerotic heart disease of native coronary artery with unstable angina pectoris; E11.22 Type 2 diabetes mellitus with diabetic chronic kidney disease; E03.9 Hypothyroidism, unspecified; I12.9 Hypertensive chronic kidney disease with stage 1 through stage 4 chronic kidney disease, or unspecified chronic kidney disease; E11.65 Type 2 diabetes mellitus with hyperglycemia; E78.00 Pure hypercholesterolemia, unspecified; N18.2 Chronic kidney disease, stage 2 (mild); E87.6 Hypokalemia; F17.210 Nicotine dependence, cigarettes, uncomplicated; Y71.2 Prosthetic and other implants, materials and accessory cardiovascular devices associated with adverse incidents; E66.3 Overweight; R79.89 Other specified abnormal findings of blood chemistry; Z79.84 Long term (current) use of oral hypoglycemic drugs; Z79.82 Long term (current) use of aspirin; Z79.02 Long term (current) use of antithrombotics/antiplatelets; Z79.899 Other long term (current) drug therapy; Z95.5 Presence of coronary angioplasty implant and graft; Z68.27 Body mass index [BMI] 27.0-27.9, adult
CPT/HCPCS: 71045; 80048; 80053; 80061; 82962; 83036; 83735; 84484; 85025; 85610; 85730; 93005; 93306; 93458; 94668; 99152; 99285; J7030; Q9967; A4216; C1769; C1894